=== PATIENT | female | born 1945 | race Caucasian/White ===

== ENCOUNTER 2020-03-09 21:02 | Emergency (ER) | payer MEDICARE, MEDICAID, SELFPAY ==
[2020-03-09 21:08] VITALS: BP 224/120; PULSE 77; RESP 16; TEMP 36.3; O2SAT 100; BMI 30.6
--- NOTE | 2020-03-09 21:36 | ECG_ITS ---
Test Reason : CHEST PAIN Blood Pressure : / mmHG Vent. Rate : 072 BPM Atrial Rate : 072 BPM P-R Int : 136 ms QRS Dur : 088 ms QT Int : 412 ms P-R-T Axes : 029 006 038 degrees QTc Int : 451 ms Normal sinus rhythm Minimal voltage criteria for LVH, may be normal variant Borderline ECG When compared to the previous EKG of No significant changes seen Referred By: Generic ED Physician Electronically Signed By:DIEUDONNE OSUNA MD
[2020-03-09 21:49] LABS: MANUAL DIFF FLAG NO
[2020-03-09 21:50] LABS: Basophils Percent Auto 0.5 % (0-2); Eosinophils Absolute Auto 0.1 X10*3/uL (0.0-0.4); Eosinophils Percent Auto 1.1 % (0-4); Hematocrit 38.5 % (37-47); Hemoglobin 12.3 g/dl (12.0-16.0); Imm Gran Abs Auto 0.01 X10*3/uL (0.00-0.03); Imm Gran Pct Auto 0.2 % (0.0-0.4); Lymphocytes Absolute Auto 3.4 X10*3/uL (1.2-4.9); Lymphocytes Percent Auto 52.4 % (20-40); Mean Corpuscular HGB Conc 31.9 g/dl (31.0-35.0); Mean Corpuscular Hemoglobin 24.3 pg (27.0-33.0); Mean Corpuscular Volume 76.1 fL (80-98); Mean Platelet Volume 10.4 fL (9.4-12.3); Monocytes Absolute Auto 0.5 X10*3/uL (0.1-1.2); Monocytes Percent Auto 7.5 % (2-11); Neutrophils Absolute Auto 2.5 X10*3/uL (2.0-8.3); Neutrophils Percent Auto 38.3 % (45-73); Platelet Count 267 X10*3/uL (160-400); Red Blood Count 5.06 X10*6/uL (4.20-5.50); Red Cell Distribution Width 14.6 % (11.0-16.0); White Blood Count 6.5 X10*3/uL (4.8-10.8)
--- NOTE | 2020-03-09 22:03 | ED_ITS ---
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 In addition, patient notes that she was hypertensive at home and this chest pressure was not associated with any headache, dizziness,, shortness of breath, diaphoresis, nausea. Otherwise, patient denies any recent travel or calf swelling. Related Data Previous Rx's Medication Instructions Recorded hydrochlorothiazide 25 mg PO DAILY #30 tab 03/10/20 Allergies Allergy/AdvReac Type Severity Reaction Status Date / Time No Known Allergies Allergy Verified 03/09/20 23:42 Review of Systems Review of Systems: Pertinent positives and negatives as stated in HPI 10 point review of systems is otherwise negative. PMFSH Past Medical History Source: nursing notes reviewed Medical History Breast cancer HTN (hypertension) Social History Social History Smoking Status: Never smoker Use of substances other than those prescribed or required for medical reasons: No Advance Directives: No Advance Directives Information Provided: Yes Physical Exam Vital Signs: Vital Signs: Last Vital Signs Temp 97.3 F 03/09/20 21:08 Pulse 70 03/10/20 00:00 Resp 15 03/10/20 00:00 BP 154/76 H 03/10/20 00:00 Pulse Ox 100 03/10/20 00:00 Body Mass Index 30.6 VITAL SIGNS: Reviewed. GENERAL: Well developed, well nourished, in no acute distress. HEAD: Normocephalic/atraumatic, EYES: PERRLA, EOMI intact without pain, no nystagmus/pallor/icterus noted EARS: Ext canals without abnormality, TMs non-bulging and non-erythematous NOSE: Nares patent bilateral OROPHARYNX: no oral lesions noted, posterior pharynx clear and non-erythematous without noted tonsillar enlargement/erythema/exudates NECK: Supple, no adenopathy LUNGS: Normal breath sounds. No adventitious sounds or accessory muscle use. SpO2<100> CARDIOVASCULAR: Regular rate and rhythm without noted murmurs, no JVD or lower extremity edema. ABDOMEN: Soft, non-tender, non-distended with bowel sounds. No rigidity. No guarding. No palpable masses or hernias noted MUSCULOSKELETAL: No tenderness, deformities, or effusions noted on gross inspection. EXTREMITIES: No cyanosis, clubbing or edema. SKIN: Inspection of the skin reveals no rashes, ulcerations, jaundice, pallor, or petechiae. NEUROLOGIC: Alert and oriented x 4. Strength and sensation to light touch were grossly intact x 4. Course Course Course Narrative: This is a 74-year-old female with history and clinical presentation consistent with hypertension and associated chest discomfort that h as since resolved. Will rule out cardiac ischemia and pulmonary etiologies. Patient states she does not have blood pressure medication at home and so she will be discharged with a short course of blood pressure medication and instructed to follow-up with their primary care provider. HEART SCORE: 4 review of all laboratory investigations and imaging is negative for any evidence of systemic infection, or anemia, and although troponin was mildly elevated 8.3 with a heart score of 4 and history of hypertension 2nd troponin did not meet delta 50% increase and is within age and gender appropriate levels. That being said patient was strongly encouraged to follow-up with her primary care provider for further management of her blood pressure and discussion for possible referral to Cardiology as appropriate. MDM - Chest Pain Lab Data Result diagrams: 03/09/20 21:43 03/09/20 21:30 Labs: Lab Results 03/09/20 03/09/20 03/09/20 Range/Units 21:30 21:30 21:30 WBC (4.8-10.8) X10*3/uL RBC (4.20-5.50) X10*6/uL Hgb (12.0-16.0) g/dl Hct (37-47) % MCV (80-98) fL MCH (27.0-33.0) pg MCHC (31.0-35.0) g/dl RDW (11.0-16.0) % Plt Count (160-400) X10*3/uL MPV (9.4-12.3) fL Immature Gran % (Auto) (0.0-0.4) % Neut % (Auto) (45-73) % Lymph % (Auto) (20-40) % [place] % (Auto) (2-11) % Eos % (Auto) (0-4) % Baso % (Auto) (0-2) % Lymph # (Auto) (1.2-4.9) X10*3/uL [place] # (Auto) (0.1-1.2) X10*3/uL Eos # (Auto) (0.0-0.4) X10*3/uL Baso # (Auto) (0.0-0.2) X10*3/uL Abs Immat Gran (auto) (0.00-0.03) X10*3/uL Absolute Neuts (auto) (2.0-8.3) X10*3/uL Absolute Nucleated RBC (0.0-0.012) X10*3/uL Nucleated RBC % (auto) (0.0-0.2) /100WBC Hold Blue Top SEE NOTE Sodium 139 (135-145) mmol/L Potassium 4.1 (3.3-5.1) mmol/l Chloride 108 (96-108) mmol/L Carbon Dioxide 23 (22-29) mmol/L Anion Gap 12 (12-20) BUN 20 H (9-16) mg/dL Creatinine 0.87 (0.5-1.4) mg/dL Estim Creat Clear Calc 56.2 Estimated GFR > 60 Random Glucose 96 (60-115) mg/dL Calcium 8.9 (8.4-10.2) mg/dL Troponin I High Sens 8.3 (<3.5-17.0) ng/L 03/09/20 03/10/20 Range/Units 21:43 00:50 WBC 6.5 (4.8-10.8) X10*3/uL RBC 5.06 (4.20-5.50) X10*6/uL Hgb 12.3 (12.0-16.0) g/dl Hct 38.5 (37-47) % MCV 76.1 L (80-98) fL MCH 24.3 L (27.0-33.0) pg MCHC 31.9 (31.0-35.0) g/dl RDW 14.6 (11.0-16.0) % Plt Count 267 (160-400) X10*3/uL MPV 10.4 (9.4-12.3) fL Immature Gran % (Auto) 0.2 (0.0-0.4) % Neut % (Auto) 38.3 L (45-73) % Lymph % (Auto) 52.4 H (20-40) % [place] % (Auto) 7.5 (2-11) % Eos % (Auto) 1.1 (0-4) % Baso % (Auto) 0.5 (0-2) % Lymph # (Auto) 3.4 (1.2-4.9) X10*3/uL [place] # (Auto) 0.5 (0.1-1.2) X10*3/uL Eos # (Auto) 0.1 (0.0-0.4) X10*3/uL Baso # (Auto) 0.0 (0.0-0.2) X10*3/uL Abs Immat Gran (auto) 0.01 (0.00-0.03) X10*3/uL Absolute Neuts (auto) 2.5 (2.0-8.3) X10*3/uL Absolute Nucleated RBC 0.000 (0.0-0.012) X10*3/uL Nucleated RBC % (auto) 0.0 (0.0-0.2) /100WBC Hold Blue Top Sodium (135-145) mmol/L Potassium (3.3-5.1) mmol/l Chloride (96-108) mmol/L Carbon Dioxide (22-29) mmol/L Anion Gap (12-20) BUN (9-16) mg/dL Creatinine (0.5-1.4) mg/dL Estim Creat Clear Calc Estimated GFR Random Glucose (60-115) mg/dL Calcium (8.4-10.2) mg/dL Troponin I High Sens 9.8 (<3.5-17.0) ng/L ECG Data ECG #1: Attestation: I personally reviewed and interpreted this ECG as follows: Prior ECG tracings: not available for review Interpretation: Normal sinus rhythm, HR - 72, no evidence of acute ischemia, [place]/QRS/ QTC are within normal limits. Discharge Plan Discharge Clinical Impression: Atypical chest pain Hypertension Qualifiers: Hypertension type: unspecified Qualified Code(s): I10 - Essential (primary) hypertension Patient Disposition: Home, Self-Care Instructions: Hypertension (ED) Additional Instructions: Debe llamar al consultorio de boo proveedor de atenci?n primaria para obtener lg receta para boo presi?n arterial jonah. El paciente y / o la edi reconocen que comprenden los resultados (seg?n corresponda), el diagn?stico, el plan de tratamiento, la necesidad de seguimiento y los s?ntomas que deber?an impulsar el regreso a la carolyn de emergencias. Prescriptions: New hydrochlorothiazide 25 mg tablet 25 mg PO DAILY Qty: 30 RF: 0 Interventions: ED Discharge Assessment Last Done: 03/10/20 01:07 Print Language: Kuwaiti
--- NOTE | 2020-03-09 22:09 | XR_ITS ---
EXAMINATION: XR CHEST CLINICAL INFORMATION: Chest pain. COMPARISON: None TECHNIQUE: Frontal view of the chest was obtained. FINDINGS: No significant abnormality is noted involving the heart, lungs, mediastinum, bony thorax or soft tissues. XR/XR chest 1V IMPRESSION: No acute cardiopulmonary process.
[2020-03-09 22:36] LABS: Anion Gap 12 (12-20); Blood Urea Nitrogen 20 mg/dL (9-16); Calcium 8.9 mg/dL (8.4-10.2); Carbon Dioxide 23 mmol/L (22-29); Chloride 108 mmol/L (96-108); Creatinine Clr Calc Pharmacy 56.2; Estimated Glomerular Filt Rate > 60; Glucose Random 96 mg/dL (60-115); Potassium 4.1 mmol/l (3.3-5.1); Sodium 139 mmol/L (135-145)
[2020-03-09 22:43] LABS: Troponin-I High Sensitivity 8.3 ng/L (<3.5-17.0)
[2020-03-09 22:49] VITALS: BP 154/76; PULSE 67; RESP 15; O2SAT 100
[2020-03-10] VITALS: BP 154/76; PULSE 70; RESP 15; O2SAT 100
[2020-03-10 01:24] LABS: Troponin-I High Sensitivity 9.8 ng/L (<3.5-17.0)
== END 2020-03-10 01:46 | disposition home or self-care (01) ==
PROVIDERS: Emergency Provider Student in an Organized Health Care Education/Training Program
DX: R07.89 Other chest pain (principal); I10 Essential (primary) hypertension; C50.912 Malignant neoplasm of unspecified site of left female breast
CPT/HCPCS: 36415; 71045; 80048; 84484; 85025; 93005; 99284

== ENCOUNTER 2020-05-04 12:52 | Outpatient (REF) | payer MEDICARE, MEDICAID, SELFPAY ==
--- NOTE | 2020-05-04 13:01 | MM_ITS ---
EXAMINATION: MM DIAGNOSTIC DIGITAL MAMMOGRAPHY, BILATERAL CLINICAL INFORMATION: Due for yearly. 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 COMPARISON: Mammography: 03/20/2019, 02/22/2018, 01/21/2018, 01/10/2018, 12/27/2017 TECHNIQUE: Digital mammography is performed in craniocaudal and mediolateral oblique views along with computer-aided detection (CAD). Additional magnification left CC and magnification left ML views are obtained. FINDINGS: There are scattered areas of fibroglandular density (ACR BI-RADS breast composition Category b). Breast tissue composition borders on heterogeneously dense. Parenchymal pattern is similar to prior exams. There are stable post therapy changes on the left with mild reduced breast size and minor scarring. Neither breast shows interval mass or architectural abnormality or abnormal calcifications. No significant changes. Results are provided to the patient at time of visit by the technologist. MM/MM diagnostic mammo BI IMPRESSION: No mammographic evidence of malignancy. Post therapy changes left breast. ASSESSMENT: BI-RADS 2: Benign RECOMMENDATION: Annual bilateral mammography. This patient's information was entered into a reminder system with a target due date for their next mammogram.
== END 2020-05-04 12:53 | disposition home or self-care (01) ==
LOC: HO.MAMMO 12:52
PROVIDERS: Visit Provider Surgery
DX: Z85.3 Personal history of malignant neoplasm of breast (principal)
CPT/HCPCS: 77066

== ENCOUNTER 2021-10-19 11:44 | Outpatient (REF) | payer MEDICARE, MEDICAID, SELFPAY ==
--- NOTE | ~2021-10-19 | XR_ITS ---
EXAMINATION: XR SHOULDER, RIGHT CLINICAL INFORMATION: Right shoulder pain. COMPARISON: Chest radiograph 03/09/2020. TECHNIQUE: Right shoulder is imaged in 4 views. FINDINGS: Right shoulder shows no fracture or dislocation or destructive process. The glenohumeral joint appears normal. There are mild degenerative changes acromioclavicular joint. No acromioclavicular separation. No visible rotator cuff calcifications. There are healed fractures right posterior lateral 3rd and 4th ribs. Right lung apex clear. No pleural reaction. XR/XR shoulder RT min 2V IMPRESSION: -Mild degenerative changes acromioclavicular joint. -No visible rotator cuff calcifications.
== END 2021-10-19 11:45 | disposition home or self-care (01) ==
LOC: HO.XRAY 11:44
PROVIDERS: PCP Nurse Practitioner; Visit Provider Nurse Practitioner
DX: M25.511 Pain in right shoulder (principal)
CPT/HCPCS: 73030

== ENCOUNTER → 2021-10-21 15:18 | Outpatient (BNV) | payer MEDICAID, MEDICARE, SELFPAY | PROVIDERS: PCP Nurse Practitioner; Visit Provider Internal Medicine | DX: C50.912 Malignant neoplasm of unspecified site of left female breast (principal); Z17.0 Estrogen receptor positive status [ER+]; M85.80 Other specified disorders of bone density and structure, unspecified site; Z80.3 Family history of malignant neoplasm of breast | CPT/HCPCS: 99214 ==

== ENCOUNTER 2022-01-19 10:31 | Outpatient (REF) | payer MEDICARE, MEDICAID, SELFPAY ==
--- NOTE | ~2022-01-19 | MM_ITS ---
EXAMINATION: MM SCREENING DIGITAL BREAST TOMOSYNTHESIS, BILATERAL CLINICAL INFORMATION: Screening. Asymptomatic. Status post left breast lumpectomy. COMPARISON: Mammography: 05/04/2020 and studies dating back to 08/16/2015 TECHNIQUE: Digital breast tomosynthesis is performed in both the craniocaudal and mediolateral oblique views along with computer-aided detection (CAD). Synthesized 2D images are generated from the tomosynthesis. FINDINGS: The breasts are heterogeneously dense, which may obscure small masses (ACR BI-RADS breast composition Category c). There are no new significant masses, abnormal calcifications, or other abnormalities. Status post left lumpectomy with associated postsurgical change. Grouping of calcifications about the lateral aspect of the right breast are seen to be stable dating back to study of 03/20/2019. MM/MM tomosynthesis screening BI IMPRESSION: No significant changes from prior exam. ASSESSMENT: BI-RADS 2: Benign RECOMMENDATION: Routine annual mammography screening. This patient's information was entered into a reminder system with a target due date for their next mammogram.
--- NOTE | ~2022-01-19 | MM_ITS ---
EXAMINATION: BONE DENSITOMETRY CLINICAL INDICATION: Osteopenia. COMPARISON: Previous BD dated 07/03/2018 and baseline BD dated 11/16/2016. TECHNIQUE: Using a [employer] DXA System (software version: 13.1) manufactured by [employer], dual-energy x-ray absorptiometry was performed of the lumbar spine and left hip. The images are of good technical quality. Summary results are attached. FINDINGS: AP SPINE L1-L4: Current: BMD 0.983 g/cm2, Z-score -0.4, T-score -1.6, osteopenia, 7.1% decrease from previous, 4.3% decrease from baseline (<5% change is not significant). Prior: BMD 1.058 g/cm2. Baseline: BMD 1.027 g/cm2. LEFT FEMUR, NECK: Current: BMD 0.821 g/cm2, Z-score 0.1, T-score -1.6, osteopenia. Prior: BMD 0.899 g/cm2. Baseline: BMD 0.908 g/cm2. LEFT FEMUR, TOTAL: Current: BMD 0.872 g/cm2, Z-score 0.3, T-score -1.1, osteopenia, 6.7% decrease from previous, 8.9% decrease from baseline (<5% change is not significant). Prior: BMD 0.935 g/cm2. Baseline: BMD 0.957 g/cm2. IDENTIFIED RISK FACTORS: Early menopause, family history (parent hip fracture), secondary osteoporosis. HISTORY OF FRACTURE: None listed. MEDICATIONS: Vitamin D. MM/XR DEXA axial skeleton IMPRESSION: 1. DIAGNOSIS: Osteopenia based on the lowest T-score value of -1.6 in the lumbar spine and femur neck applying World Health Organization criteria. 2. 10-YEAR FRACTURE RISK PREDICTION, FRAX: Major osteoporotic fracture (clinical spine, forearm, hip or shoulder) 11.9%. Hip fracture 6.1%. 3. Treatment Recommendations: NOF guidelines recommend consideration for treatment in postmenopausal women and men age 50 and older presenting with the following: -A hip or vertebral (clinical or morphometric) fracture. -T-score less than or equal to -2.5 at the femoral neck or spine after appropriate evaluation to exclude secondary causes. -Low bone mass at the hip or spine and a 10-year fracture probability by FRAX of greater than or equal to 3% for hip fracture or greater than or equal to 20% for major osteoporotic fracture based on the [place] adapted WHO algorithm. 4. Other Recommendations: All treatment decisions require clinical judgment and consideration of individual patient factors, including patient preferences, comorbidities, previous drug use, risk factors not captured in the FRAX model (e.g. frailty, falls, vitamin D deficiency, increased bone turnover, interval significant decline in bone density) and possible under or overestimation of fracture risk by FRAX. Additional medical evaluation for secondary cause of low bone mineral density may be appropriate. FUTURE SCAN RECOMMENDATION: People with diagnosed cases of osteoporosis or at high risk for fracture should have regular bone mineral density tests. For patients eligible for Medicare, routine testing is allowed once every 2 years. The testing frequency can be increased to one year for patients who have rapidly progressing disease, those who are receiving or discontinuing medical therapy to restore bone mass, or have additional risk factors.
== END 2022-01-19 10:32 | disposition home or self-care (01) ==
LOC: HO.MAMMO 10:31
PROVIDERS: PCP Nurse Practitioner; Visit Provider Nurse Practitioner
DX: Z12.31 Encounter for screening mammogram for malignant neoplasm of breast (principal); Z13.820 Encounter for screening for osteoporosis; Z78.0 Asymptomatic menopausal state; M85.89 Other specified disorders of bone density and structure, multiple sites
CPT/HCPCS: 77063; 77067; 77080

== ENCOUNTER 2022-03-10 | Outpatient (REF) | payer MEDICARE, MEDICAID, SELFPAY ==
--- NOTE | ~2022-03-10 | XR_ITS ---
EXAMINATION: XR STANDING KNEE BILATERAL XR KNEE, RIGHT XR KNEE, LEFT CLINICAL INFORMATION: Bilateral knee pain. COMPARISON: 01/16/2018 TECHNIQUE: AP standing view both knees. Lateral and sunrise views of each knee. FINDINGS: Symmetric severe osteoarthritis of the lateral compartments with mild genu valgus. Moderate osteoarthritis of the medial and patellofemoral compartments of each knee. No acute osseous abnormality. No significant joint effusions. No acute abnormalities. Degenerative findings have slightly progressed. XR/XR knee RT 2V IMPRESSION: Tricompartmental osteoarthritis of both knees, most severe in the lateral compartments.
--- NOTE | ~2022-03-10 | XR_ITS ---
EXAMINATION: XR STANDING KNEE BILATERAL XR KNEE, RIGHT XR KNEE, LEFT CLINICAL INFORMATION: Bilateral knee pain. COMPARISON: 01/16/2018 TECHNIQUE: AP standing view both knees. Lateral and sunrise views of each knee. FINDINGS: Symmetric severe osteoarthritis of the lateral compartments with mild genu valgus. Moderate osteoarthritis of the medial and patellofemoral compartments of each knee. No acute osseous abnormality. No significant joint effusions. No acute abnormalities. Degenerative findings have slightly progressed. XR/XR knee standing BI IMPRESSION: Tricompartmental osteoarthritis of both knees, most severe in the lateral compartments.
--- NOTE | ~2022-03-10 | XR_ITS ---
EXAMINATION: XR STANDING KNEE BILATERAL XR KNEE, RIGHT XR KNEE, LEFT CLINICAL INFORMATION: Bilateral knee pain. COMPARISON: 01/16/2018 TECHNIQUE: AP standing view both knees. Lateral and sunrise views of each knee. FINDINGS: Symmetric severe osteoarthritis of the lateral compartments with mild genu valgus. Moderate osteoarthritis of the medial and patellofemoral compartments of each knee. No acute osseous abnormality. No significant joint effusions. No acute abnormalities. Degenerative findings have slightly progressed. XR/XR knee LT 2V IMPRESSION: Tricompartmental osteoarthritis of both knees, most severe in the lateral compartments.
== END 2022-03-10 00:01 | disposition home or self-care (01) ==
LOC: HO.HOSX
PROVIDERS: Visit Provider Physician Assistant
DX: M17.0 Bilateral primary osteoarthritis of knee (principal)
CPT/HCPCS: 20610; 73560; 73565; 99202; J1040

== ENCOUNTER → 2022-05-01 11:01 | Outpatient (BNVA) | payer MEDICARE, MEDICAID, SELFPAY | PROVIDERS: PCP Nurse Practitioner; Visit Provider Orthopaedic Surgery | DX: M17.11 Unilateral primary osteoarthritis, right knee (principal); M17.12 Unilateral primary osteoarthritis, left knee | CPT/HCPCS: 99212 ==

== ENCOUNTER → 2022-07-11 13:05 | Outpatient (BNVA) | payer MEDICARE, MEDICAID, SELFPAY | PROVIDERS: PCP Nurse Practitioner; Visit Provider Orthopaedic Surgery ==

== ENCOUNTER 2022-07-25 | Outpatient (REF) | payer MEDICARE, MEDICAID, SELFPAY ==
[2022-07-25 15:26] VITALS: BP 201/93; PULSE 76; RESP 20; O2SAT 100; BMI 31.3
--- NOTE | 2022-07-25 15:30 | P.CONAN_ITS ---
HPI - Anesthesia Eval Consult details Narrative: 77yo F for Right Total Knee Replacement 08/23/22 PCP clearance pending BP BP elevated at PAT. Pt denies VILLANUEVA, vision changes. Declines ER. BP meds increased by PCP today. 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) Osteoarthritis of right knee (Acute) Osteoarthritis of left knee (Acute) Past Medical History Medical History Anxiety Breast cancer Carcinoma of left breast HTN (hypertension) Low back pain Osteopenia Restless leg syndrome Family History Family history of problems with anesthesia: No Surgical History Surgical History H/O hernia repair History of appendectomy History of lumpectomy of left breast History of tubal ligation History of Problems with Anesthesia: No Social History Social History Household Members: Family Household Members Other:: Son, DIL, Grandaughter Housing: House Are you a primary director long term care to a significant other at home: No Do you presently have visiting nurse or other home services: No Patient Tobacco Use Status: Never used Tobacco Second Hand Smoke Exposure: No Current occupational status: retired Narrative Narrative: No recent illness No CP/SOB within limits of pain Meds Allergies Allergy/AdvReac Type Severity Reaction Status Date / Time No Known Allergies Allergy Verified 07/21/22 12:21 Home Medications Medication Instructions Recorded Confirmed Last Taken Type multivitamin 1 tab PO DAILY 04/26/22 07/21/22 Unknown History amlodipine 10 mg tablet 10 mg PO 07/12/22 07/12/22 Unknown History acetaminophen 650 mg 650 mg PO Q8H PRN Pain 07/21/22 07/21/22 Unknown History tablet,extended release docusate sodium 100 mg capsule 100 mg PO DAILY PRN constipation 07/21/22 0 07/21/22 Unknown History hydrochlorothiazide 25 mg tablet 25 mg PO QAM 07/21/22 07/21/22 Unknown History lisinopril 30 mg tablet 30 mg PO QAM 07/21/22 07/21/22 Unknown History pravastatin 40 mg tablet 40 mg PO QPM 07/21/22 07/21/22 Unknown History Exam Exam Date and Time: July 25, 2022 1530 Narrative Narrative: EKG 06/3022 NSR@70 Airway TM Dist: >3cm Neck ROM: Full Denture: Upper Assessment and Plan Assessment Anesthesia Assessment: Anesthesia Plan Discussed and PAT Visit Final Anesthetic Review Family History of Problems with Anesthesia: No History of Problems with Anesthesia: No
[2022-07-25 17:49] LABS: MRSA Nasal PCR NEGATIVE (Negative); SA Nasal PCR NEGATIVE (Negative)
[2022-07-25 18:11] LABS: Hematocrit 36.1 % (37.0-47.0); Mean Corpuscular HGB Conc 33.2 g/dl (31.0-35.0); Mean Corpuscular Hemoglobin 24.9 pg (27.0-33.0); Mean Corpuscular Volume 74.9 fL (80.0-98.0); Mean Platelet Volume 11.2 fL (9.4-12.3); Platelet Count 280 X10*3/uL (160-400); Red Blood Count 4.82 X10*6/uL (4.20-5.50); Red Cell Distribution Width 14.2 % (11.0-16.0); White Blood Count 6.7 X10*3/uL (4.8-10.8)
[2022-07-25 18:31] LABS: Anion Gap 11 (12-20); Blood Urea Nitrogen 16 mg/dL (9-16); Calcium 8.9 mg/dL (8.4-10.2); Carbon Dioxide 25 mmol/L (22-29); Chloride 110 mmol/L (96-108); Estimated Glomerular Filt Rate > 60; Glucose Random 110 mg/dL (60-115); Sodium 142 mmol/L (135-145)
== END 2022-07-25 00:01 | disposition home or self-care (01) ==
LOC: HO.PAT
PROVIDERS: Nurse Practitioner; Physician Assistant; PCP Nurse Practitioner; Visit Provider Orthopaedic Surgery
DX: Z01.818 Encounter for other preprocedural examination (principal); M17.11 Unilateral primary osteoarthritis, right knee
CPT/HCPCS: 36415; 80048; 85027; 86850; 86900; 86901; 87640; 87641

== ENCOUNTER 2022-10-06 10:39 | Outpatient (REF) | payer MEDICARE, MEDICAID, SELFPAY ==
--- NOTE | ~2022-10-06 | US_ITS ---
EXAMINATION: US RETROPERITONEAL LIMITED (RENAL ONLY) CLINICAL INFORMATION: Essential hypertension. COMPARISON: CT abdomen and pelvis 03/19/2016. Ultrasound abdomen 04/27/2011. TECHNIQUE: Real-time imaging of the kidneys. Limited visualization due to bowel gas and body habitus. FINDINGS: RIGHT KIDNEY: 10.0 x 3.9 x 4.7 cm (SAG x AP x TRV). No hydronephrosis. No renal calculi. Limited visualization. 1.3 x 1.3 x 1.6 cm medial midpole cyst difficult to characterize due to limited visualization. LEFT KIDNEY: 10.1 x 5.0 x 3.7 cm (SAG x AP x TRV). No hydronephrosis. No renal calculi. Limited visualization. 2.3 x 1.7 x 2.1 cm upper pole, 1.5 x 0.9 x 1.2 cm upper pole and 1.1 x 1.2 x 1.4 cm lower pole cysts are difficult to fully characterize due to limited visualization. US/US renal BI IMPRESSION: Bilateral renal cysts are difficult to characterize due to limited visualization. CT scan recommended for further evaluation.
== END 2022-10-06 10:40 | disposition home or self-care (01) ==
LOC: HO.US 10:39
PROVIDERS: PCP Family Medicine; Visit Provider Family Medicine
DX: I10 Essential (primary) hypertension (principal)
CPT/HCPCS: 76775

== ENCOUNTER 2022-12-27 09:56 | Outpatient (REF) | payer MEDICARE, MEDICAID, SELFPAY ==
--- NOTE | ~2022-12-27 | CT_ITS ---
EXAMINATION: CT ABDOMEN WITHOUT AND WITH CONTRAST CLINICAL INFORMATION: Renal cyst. COMPARISON: 10/06/2022 abdominal ultrasound, 03/19/2016 CT TECHNIQUE: Contiguous axial thin section helical images of the abdomen were performed before and after the administration of oral contrast and 85 mL of Omnipaque 350 intravenous contrast. The data set was reformatted in the coronal and sagittal planes and reviewed on an independent workstation. This CT examination was performed using dose optimization techniques as appropriate, variously including the following: *Automated exposure control *Adjustment of mA and/or kV according to patient size (this includes techniques or standardized protocols for targeted exams where dose is matched to indication/reason for exam; i.e. extremities or head) *Use of iterative reconstruction technique DLP: 433 mGy-cm FINDINGS: TEST GRADER: Nonspecific bowel pattern. LUNG BASES: Minor atelectasis. Heart size upper limits of normal. LIVER, GALLBLADDER, AND BILIARY TREE: Homogeneous liver with no lesions or ductal dilatation. Distended gallbladder without wall thickening, pericholecystic fluid or inflammatory changes. PANCREAS: Pancreas poorly delineated from unopacified bowel loops but no definite abnormality. SPLEEN: Lateral capsular calcifications are stable from 2016. ADRENAL GLANDS: No lesions. KIDNEYS AND URETERS: Bilateral nonobstructing renal calculi are identified, largest on the right measures 3 mm, on the left, 2 mm. On the right, mild renal pelvic collecting system fullness and prominent extrarenal pelvis but improved from 2016. Small extrarenal pelvis on the left. 1.9 cm medial mid pole water density, nonenhancing round hypodensity. Multiple left renal hypodensities, some too small to characterize, largest of the lesions are nonenhancing and of water density Hounsfield units, 1.0 cm and 1.4 cm in the upper pole and 1.2 cm in the lower pole. Bilateral 4 mm renal hyperdensities in the right upper pole and left lower pole likely proteinaceous or hemorrhagic cysts. GASTROINTESTINAL: Small hiatal hernia. Underdistended stomach. No bowel obstruction LYMPH NODES: No pathologic lymphadenopathy. VASCULAR: Atherosclerotic calcifications nonaneurysmal aorta. Normal caliber inferior vena cava. BONES: Stable appearance of the bony structures including facet hypertrophic hypertrophy and multiple hemangiomas. CT/CT abdomen wo/w IV con IMPRESSION: Bilateral renal cysts. Bilateral nonobstructing renal calculi. Fleischner guidelines were followed.
[2022-12-27] MEDS: iohexoL 350 MG/ML 100 ML INFUS..BTL IV (11:07)
[2022-12-28 15:40] LABS: Creatinine POC 0.6 mg/dL (0.5-1.4); GFR POC 60
== END 2022-12-27 09:57 | disposition home or self-care (01) ==
LOC: HO.CT 09:56
PROVIDERS: Absent Provider Family Medicine; PCP Family Medicine; Visit Provider Internal Medicine Hypertension Specialist
DX: N28.1 Cyst of kidney, acquired (principal)
CPT/HCPCS: 74170; 82565; Q9967

== ENCOUNTER 2023-01-17 10:45 | Outpatient (REF) | payer MEDICARE, MEDICAID, SELFPAY ==
[2023-01-17 12:01] LABS: Anion Gap 15 (12-20); Blood Urea Nitrogen 12 mg/dL (9-16); Calcium 10.1 mg/dL (8.4-10.2); Carbon Dioxide 25 mmol/L (22-29); Chloride 108 mmol/L (96-108); Estimated Glomerular Filt Rate > 60; Potassium 3.9 mmol/L (3.3-5.1); Sodium 144 mmol/L (135-145)
== END 2023-01-17 10:46 | disposition home or self-care (01) ==
LOC: HO.HHCL 10:45
PROVIDERS: Visit Provider Internal Medicine Hypertension Specialist
DX: I10 Essential (primary) hypertension (principal)
CPT/HCPCS: 36415; 80051; 82310; 82565; 84520

== ENCOUNTER 2023-01-25 08:36 | Outpatient (REF) | payer MEDICARE, MEDICAID, SELFPAY ==
--- NOTE | ~2023-01-25 | MM_ITS ---
EXAMINATION: MM SCREENING DIGITAL BREAST TOMOSYNTHESIS, BILATERAL CLINICAL INFORMATION: Screening. Asymptomatic. Status post left breast lumpectomy 02/22/2018 for papillary ductal cancer with adjacent invasive ductal carcinoma. COMPARISON: Mammography: 01/19/2022, 05/04/2020 and studies dating back to 08/16/2015 TECHNIQUE: Digital breast tomosynthesis is performed in both the craniocaudal and mediolateral oblique views along with computer-aided detection (CAD). Synthesized 2D images are generated from the tomosynthesis. FINDINGS: The breasts are heterogeneously dense, which may obscure small masses (ACR BI-RADS breast composition Category c). Stable post treatment related changes superior left breast. Vascular calcifications present in both breasts. There are a few scattered benign type calcifications in both breasts with rounded appearance, unchanged and benign. Similar loosely grouped calcifications lateral right breast, stable and benign.No suspicious masses, suspicious grouped calcifications, or developing regions of architectural distortion in either breast. No axillary abnormalities. MM/MM tomosynthesis screening BI IMPRESSION: No mammographic evidence of malignancy. Stable benign findings including treatment related changes left breast. ASSESSMENT: BI-RADS BI-RADS 2 - Benign Findings RECOMMENDATION: Routine annual mammography screening. 1 year F/U This examination should not preclude the clinical evaluation of a suspicious palpable abnormality. This patient's information was entered into a reminder system with a target due date for their next mammogram.
== END 2023-01-25 08:37 | disposition home or self-care (01) ==
LOC: HO.MAMMO 08:36
PROVIDERS: PCP Family Medicine; Visit Provider Nurse Practitioner
DX: Z12.31 Encounter for screening mammogram for malignant neoplasm of breast (principal)
CPT/HCPCS: 77063; 77067

== ENCOUNTER → 2023-01-25 09:45 | Outpatient (BNV) | payer MEDICARE, MEDICAID, SELFPAY | PROVIDERS: PCP Family Medicine; Visit Provider Radiology Diagnostic Radiology | DX: Z12.31 Encounter for screening mammogram for malignant neoplasm of breast (principal) | CPT/HCPCS: 77063; 77067 ==

== ENCOUNTER 2023-07-19 14:29 | Outpatient (AMB) | payer MEDICARE, MEDICAID, SELFPAY ==
[2023-07-19 14:30] VITALS: BP 180/81; PULSE 67; O2SAT 98; BMI 30.8
--- NOTE | 2023-07-19 14:30 | HO.NEPHOV ---
HPI HPI Comments History of Present Illness Details Nataly is a 78-year-old woman with a history of nephrolithiasis and hypertension. She was previously seen in my previous practice and she has made an appointment to establish continuity of care. She has a history of breast cancer and is being followed by Dr. Simms. History of hypertension. History of nephrolithiasis as well. She is complaining of edema. [facility] Medical History (Updated 07/19/23 @ 14:50 by Ulysses Olson MD) Breast cancer HTN (hypertension) Osteopenia Low back pain Restless leg syndrome Anxiety Carcinoma of left breast Surgical History History of lumpectomy of left breast History of tubal ligation History of appendectomy H/O hernia repair Social History Household Members: Family Household Members Other:: Son, DIL, [facility] Housing: House Are you a primary complex care nurse to a significant other at home: No Do you presently have visiting nurse or other home services: No Patient Tobacco Use Status: Never used Tobacco Second Hand Smoke Exposure: No Current occupational status: retired Vital Signs 07/19/23 14:30 Height 5 ft 3 in Weight 174 lb BMI 30.8 BP 180/81 H Blood Pressure Location Rt brachial Position Sitting Pulse 67 Pulse Source Pulse Oximeter Pulse Oximetry (%) 98 Oxygen Delivery Method Room Air Physical Exam Vital Signs: BMI result Body Mass Index 30.8 Const General: comfortable Nutritional Appearance: well nourished Orientation/consciousness: patient oriented x3 HEENT Head: No normal to inspection Mouth: moist mucous membranes Neck Neck: Yes supple and Yes no JVD Resp Auscultation: clear to auscultation bilaterally, no rales and rub present Cardio Jugular venous distension: no JVD Palpation: no palpable S3 and no palpable S4 Heart sounds: no rubs GI Palpation (GI): Soft to palpation and nontender Percussion: No Fluid wave present General: Yes no CVA tenderness Back/Spine/Pelvis Back: no CVA tenderness Skin General skin exam: no rashes or lesions noted Neuro General: patient oriented x3 Extrem General: Yes no pedal edema and No clubbing Assessment & Plan Assessment & Plan (1) HTN (hypertension): Code(s): I10 - Essential (primary) hypertension Plan: Blood pressure is suboptimal today. I am very concerned with complaints. The medication list she is carrying does not match with my medication list. I have asked her to bring all her medications during the next visit in the next few days. In the meantime she should stay on low-sodium diet and keep taking the current medication that she has at home. (2) Nephrolithiasis: Code(s): N20.0 - Calculus of kidney Plan: Prior CT scan showed bilateral nephrolithiasis which was nonobstructing. Currently she is asymptomatic She should stay on low-sodium diet Increase p.o. fluid intake to maintain a urine output of 2 L. I will obtain a 24 hour urine collection for urine studies. (3) Edema: Code(s): R60.9 - Edema, unspecified Plan: Leg edema seems multifactorial. Amlodipine could be a contributing factor. Overall she appears euvolemic and lungs are clear. I will check urine for protein creatinine ratio Encouraged leg elevation If edema persists we can decrease amlodipine by 50% to see if any improvement. Orders: Orders Creatinine Urine Today I10 - Essential (primary) hypertension, N05.9 - Unspecified nephritic syndrome with unspecified morphologic changes UA and rflx microscopic Today I10 - Essential (primary) hypertension Complete Blood Count Auto Diff Today I10 - Essential (primary) hypertension, N18.30 - Chronic kidney disease, stage 3 unspecified Comprehensive Met. Panel Today I10 - Essential (primary) hypertension, N18.9 - Chronic kidney disease, unspecified Total Protein Urine Random Today I10 - Essential (primary) hypertension Coding Level of Care Code Est Pt Level 4 (10635) Diagnoses HTN (hypertension) I10 Nephrolithiasis N20.0 Edema R60.9 Results Reviewed Nephrology Results: Hgb 11.5 g/dl (12.0-16.0) L 05/01/23 WBC 6.0 X10*3/uL (4.8-10.8) 05/01/23 Plt Count 341 X10*3/uL (160-400) 05/01/23 Sodium 142 mmol/L (135-145) 05/01/23 Potassium 4.4 mmol/L (3.3-5.1) 05/01/23 Chloride 107 mmol/L (96-108) 05/01/23 Carbon Dioxide 25 mmol/L (22-29) 05/01/23 BUN 26 mg/dL (9-16) H 05/01/23 Creatinine 0.96 mg/dL (0.5-1.4) 05/01/23 Calcium 9.6 mg/dL (8.4-10.2) 05/01/23 Renal US 10/06/22
== END 2023-07-19 14:53 | disposition home or self-care (01) ==
PROVIDERS: PCP Family Medicine; Visit Provider Internal Medicine Hypertension Specialist
DX: I10 Essential (primary) hypertension (principal); N20.0 Calculus of kidney; R60.9 Edema, unspecified
CPT/HCPCS: 99214

== ENCOUNTER → 2023-07-19 14:29 | Outpatient (BNVA) | payer MEDICARE, MEDICAID, SELFPAY | PROVIDERS: PCP Family Medicine; Visit Provider Internal Medicine Hypertension Specialist | DX: I12.9 Hypertensive chronic kidney disease with stage 1 through stage 4 chronic kidney disease, or unspecified chronic kidney disease (principal); N18.30 Chronic kidney disease, stage 3 unspecified; N20.0 Calculus of kidney; R60.9 Edema, unspecified | CPT/HCPCS: 99212 ==

== ENCOUNTER 2023-07-24 12:11 | Outpatient (REF) | payer MEDICARE, MEDICAID, SELFPAY ==
[2023-07-24 13:40] LABS: MANUAL DIFF FLAG NO
[2023-07-24 14:02] LABS: Basophils Absolute Auto 0.1 X10*3/uL (0.0-0.2); Basophils Percent Auto 0.8 % (0-2); Eosinophils Percent Auto 0.5 % (0-4); Hematocrit 38.3 % (37.0-47.0); Hemoglobin 12.3 g/dl (12.0-16.0); Imm Gran Abs Auto 0.01 X10*3/uL (0.00-0.03); Imm Gran Pct Auto 0.2 % (0.0-0.4); Lymphocytes Absolute Auto 2.9 X10*3/uL (1.2-4.9); Lymphocytes Percent Auto 45.2 % (20-40); Mean Corpuscular HGB Conc 32.1 g/dl (31.0-35.0); Mean Corpuscular Hemoglobin 23.8 pg (27.0-33.0); Mean Corpuscular Volume 74.1 fL (80.0-98.0); Mean Platelet Volume 11.7 fL (9.4-12.3); Monocytes Absolute Auto 0.5 X10*3/uL (0.1-1.2); Monocytes Percent Auto 7.6 % (2-11); Neutrophils Absolute Auto 2.9 x10*3/uL (2.0-8.3); Neutrophils Percent Auto 45.7 % (45-73); Platelet Count 268 X10*3/uL (160-400); Red Blood Count 5.17 X10*6/uL (4.20-5.50); Red Cell Distribution Width 14.3 % (11.0-16.0); White Blood Count 6.3 X10*3/uL (4.8-10.8)
[2023-07-24 15:23] LABS: Alanine Aminotransferase 13 U/L (0-31); Alkaline Phosphatase 102 U/L (39-117); Anion Gap 11 (12-20); Aspartate Amino Transferase 18 U/L (5-31); Bilirubin Total 0.5 mg/dL (0.0-1.0); Blood Urea Nitrogen 15 mg/dL (9-16); Calcium 9.5 mg/dL (8.4-10.2); Carbon Dioxide 27 mmol/L (22-29); Chloride 106 mmol/L (96-108); Estimated Glomerular Filt Rate 60; Glucose Random 90 mg/dL (60-115); Potassium 3.9 mmol/L (3.3-5.1); Sodium 140 mmol/L (135-145); Total Protein 7.4 g/dL (6.5-8.0)
== END 2023-07-24 12:12 | disposition home or self-care (01) ==
LOC: HO.HHCL 12:11
PROVIDERS: Visit Provider Internal Medicine Hypertension Specialist
DX: I12.9 Hypertensive chronic kidney disease with stage 1 through stage 4 chronic kidney disease, or unspecified chronic kidney disease (principal); N18.30 Chronic kidney disease, stage 3 unspecified
CPT/HCPCS: 36415; 80053; 85025

== ENCOUNTER 2023-08-06 11:00 | Outpatient (REF) | payer MEDICARE, MEDICAID, SELFPAY ==
--- NOTE | ~2023-08-06 | XR_ITS ---
EXAMINATION: XR KNEE, LEFT CLINICAL INFORMATION: Left knee pain COMPARISON: 03/10/2022 TECHNIQUE: Four views of the left knee. FINDINGS: There is narrowing of left knee joint more prominent in the lateral compartment with subchondral sclerosis in the lateral tibial plateau and marginal spurring. There is patellofemoral compartment marginal spurring but no joint effusion there is mild valgus deformity of the knee. XR/XR knee LT 4V IMPRESSION: Advanced changes of osteoarthritis of left knee joint more prominent in the lateral compartment
[2023-08-06 12:48] LABS: Creatinine Urine 32.41 mg/dL; Microalbum/Creatinine Ratio Ur 163.5 ug/mg cr (<30)
== END 2023-08-06 11:01 | disposition home or self-care (01) ==
LOC: HO.HHCL 11:00
PROVIDERS: Visit Provider Family Medicine
DX: Z00.00 Encounter for general adult medical examination without abnormal findings (principal); I10 Essential (primary) hypertension; E78.49 Other hyperlipidemia; D05.12 Intraductal carcinoma in situ of left breast; R79.89 Other specified abnormal findings of blood chemistry; M25.562 Pain in left knee; G89.29 Other chronic pain
CPT/HCPCS: 73564; 82043; 82570

== ENCOUNTER 2023-08-09 13:52 | Outpatient (AMB) | payer MEDICARE, MEDICAID, SELFPAY ==
--- NOTE | 2023-08-09 13:54 | HO.NEPHOV ---
Vital Signs 08/09/23 13:55 Height 5 ft 3 in Weight 173 lb BMI 30.6 BP 134/76 Blood Pressure Location Lt brachial Position Sitting Pulse 78 Pulse Source Pulse Oximeter Pulse Oximetry (%) 96 Oxygen Delivery Method Room Air Intake Visit Reasons: R/S 07/26/23/ Confirmed Legal Financial Specialist Required: Yes Legal Financial Specialist Name: edith [id number] Accompanied by: Self / Same As Patient Allergies No Known Allergies Allergy (Verified 08/09/23 13:57) HPI Comments Details: Nataly is a 78-year-old woman with a history of nephrolithiasis and hypertension. She was previously seen in my previous practice and she has made an appointment to establish continuity of care. She has a history of breast cancer and is being followed by Dr. Simms. History of hypertension. History of nephrolithiasis as well. She is complaining of edema. [facility] Medical History (Updated 07/19/23 @ 14:50 by Ulysses Olson MD) Breast cancer HTN (hypertension) Osteopenia Low back pain Restless leg syndrome Anxiety Carcinoma of left breast Surgical History History of lumpectomy of left breast History of tubal ligation History of appendectomy H/O hernia repair Social History Household Members: Family Household Members Other:: Son, DIL, [facility] Housing: House Are you a primary critical care technician to a significant other at home: No Do you presently have visiting nurse or other home services: No Patient Tobacco Use Status: Never used Tobacco Second Hand Smoke Exposure: No Current occupational status: retired Physical Exam Vital Signs: Last Vital Signs Pulse 78 08/09/23 13:55 BP 134/76 08/09/23 13:55 Pulse Ox 96 08/09/23 13:55 Oxygen Delivery Method Room Air 08/09/23 13:55 BMI result Body Mass Index 30.6 Const General: comfortable Nutritional Appearance: well nourished Orientation/consciousness: patient oriented x3 HEENT Head: No normal to inspection Mouth: moist mucous membranes Neck Neck: Yes supple and Yes no JVD Resp Auscultation: clear to auscultation bilaterally, no rales and rub present Cardio Jugular venous distension: no JVD Palpation: no palpable S3 and no palpable S4 Heart sounds: no rubs GI Palpation (GI): Soft to palpation and nontender Percussion: No Fluid wave present General: Yes no CVA tenderness Back/Spine/Pelvis Back: no CVA tenderness Skin General skin exam: no rashes or lesions noted Neuro General: patient oriented x3 Extrem General: Yes no pedal edema and No clubbing Results Reviewed Nephrology Results: Hgb 12.3 g/dl (12.0-16.0) 07/24/23 WBC 6.3 X10*3/uL (4.8-10.8) 07/24/23 Plt Count 268 X10*3/uL (160-400) 07/24/23 Sodium 140 mmol/L (135-145) 07/24/23 Potassium 3.9 mmol/L (3.3-5.1) 07/24/23 Chloride 106 mmol/L (96-108) 07/24/23 Carbon Dioxide 27 mmol/L (22-29) 07/24/23 BUN 15 mg/dL (9-16) 07/24/23 Creatinine 0.91 mg/dL (0.5-1.4) 07/24/23 Calcium 9.5 mg/dL (8.4-10.2) 07/24/23 Urine Creatinine 32.41 mg/dL 08/06/23 Renal US 10/06/22 Assessment & Plan Assessment & Plan (1) HTN (hypertension): Code(s): I10 - Essential (primary) hypertension Category: Medical Plan: Blood pressure is well controlled. In the meantime she should stay on low-sodium diet and keep taking the current medication that she has at home. (2) Nephrolithiasis: Code(s): N20.0 - Calculus of kidney Category: Medical Plan: Prior CT scan showed bilateral nephrolithiasis which was nonobstructing. Currently she is asymptomatic She should stay on low-sodium diet Increase p.o. fluid intake to maintain a urine output of 2 L. (3) Edema: Code(s): R60.9 - Edema, unspecified Category: Medical Plan: Leg edema seems multifactorial. Amlodipine could be a contributing factor. Overall she appears euvolemic and lungs are clear. urine for microalbumin creatinine ratio is only 163 Encouraged leg elevation If edema is bothersome, we can decrease amlodipine by 50% to see if any improvement. I Would prefer to keep the same dose since BP is well controlled Orders: Orders Total Protein Urine Random 3 Months UA and rflx microscopic 3 Months Comprehensive Met. Panel 3 Months N18.9 - Chronic kidney disease, unspecified Complete Blood Count Auto Diff 3 Months N18.30 - Chronic kidney disease, stage 3 unspecified Creatinine Urine 3 Months N05.9 - Unspecified nephritic syndrome with unspecified morphologic changes Coding Level of Care Code Est Pt Level 4 (97310) Diagnoses HTN (hypertension) I10 Nephrolithiasis N20.0 Edema R60.9
[2023-08-09 13:55] VITALS: BP 134/76; PULSE 78; O2SAT 96; BMI 30.6
== END 2023-08-09 14:17 | disposition home or self-care (01) ==
PROVIDERS: PCP Family Medicine; Visit Provider Internal Medicine Hypertension Specialist
DX: I10 Essential (primary) hypertension (principal); N20.0 Calculus of kidney; R60.9 Edema, unspecified
CPT/HCPCS: 99214

== ENCOUNTER → 2023-08-09 13:52 | Outpatient (BNVA) | payer MEDICARE, SELFPAY | PROVIDERS: PCP Family Medicine; Visit Provider Internal Medicine Hypertension Specialist | DX: I10 Essential (primary) hypertension (principal); N20.0 Calculus of kidney; R60.9 Edema, unspecified | CPT/HCPCS: 99212 ==

== ENCOUNTER 2023-12-03 11:45 | Outpatient (REF) | payer OTHER, SELFPAY ==
[2023-12-03 13:08] LABS: MANUAL DIFF FLAG NO
[2023-12-03 13:18] LABS: Basophils Percent Auto 0.4 % (0-2); Eosinophils Absolute Auto 0.1 X10*3/uL (0.0-0.4); Eosinophils Percent Auto 0.7 % (0-4); Hematocrit 38.8 % (37.0-47.0); Hemoglobin 12.4 g/dl (12.0-16.0); Imm Gran Abs Auto 0.02 X10*3/uL (0.00-0.03); Imm Gran Pct Auto 0.3 % (0.0-0.4); Lymphocytes Absolute Auto 2.8 X10*3/uL (1.2-4.9); Lymphocytes Percent Auto 37.8 % (20-40); Mean Corpuscular Hemoglobin 23.4 pg (27.0-33.0); Mean Corpuscular Volume 73.1 fL (80.0-98.0); Mean Platelet Volume 10.9 fL (9.4-12.3); Monocytes Absolute Auto 0.5 X10*3/uL (0.1-1.2); Monocytes Percent Auto 6.4 % (2-11); Neutrophils Absolute Auto 4.1 x10*3/uL (2.0-8.3); Neutrophils Percent Auto 54.4 % (45-73); Platelet Count 287 X10*3/uL (160-400); Red Blood Count 5.31 X10*6/uL (4.20-5.50); Red Cell Distribution Width 15.2 % (11.0-16.0); White Blood Count 7.5 X10*3/uL (4.8-10.8)
[2023-12-03 13:30] LABS: Estimated Average Glucose 117 mg/dL; Hemoglobin A1c % 5.7 % (<6.0)
[2023-12-03 13:52] LABS: Alanine Aminotransferase 20 U/L (0-31); Albumin Level 4.2 g/dL (3.5-5.0); Alkaline Phosphatase 100 U/L (39-117); Anion Gap 13 (12-20); Aspartate Amino Transferase 25 U/L (5-31); Bilirubin Direct 0.1 mg/dL (0.0-0.5); Bilirubin Total 0.4 mg/dL (0.0-1.0); Blood Urea Nitrogen 19 mg/dL (9-16); Calcium 9.9 mg/dL (8.4-10.2); Carbon Dioxide 24 mmol/L (22-29); Chloride 107 mmol/L (96-108); Cholesterol 196 mg/dL (<200); Estimated Glomerular Filt Rate > 60; Glucose Random 96 mg/dL (60-115); HDL Cholesterol 47 mg/dL (>40); LDL Cholesterol Calculated 111 mg/dL (<100); Potassium 4.2 mmol/L (3.3-5.1); Sodium 140 mmol/L (135-145); Total Protein 7.9 g/dL (6.5-8.0); Triglycerides 191 mg/dL (<150)
[2023-12-03 14:11] LABS: Free T4 (Free Thyroxine) 1.16 ng/dL (0.71-1.85); Thyroid Stimulating Hormone < 0.01 uIU/mL (0.32-4.0); Vitamin D 25-OH Total 52.1 ng/mL (>30)
== END 2023-12-03 11:46 | disposition home or self-care (01) ==
LOC: HO.HHCL 11:45
PROVIDERS: Referring Provider Internal Medicine Hypertension Specialist; Visit Provider Family Medicine
DX: Z00.00 Encounter for general adult medical examination without abnormal findings (principal); I10 Essential (primary) hypertension; E78.49 Other hyperlipidemia; D05.12 Intraductal carcinoma in situ of left breast; M25.562 Pain in left knee; G89.29 Other chronic pain; R79.89 Other specified abnormal findings of blood chemistry
CPT/HCPCS: 36415; 80053; 80061; 80076; 82248; 82306; 83036; 84439; 84443; 85025; 85027

== ENCOUNTER 2023-12-04 11:25 | Outpatient (AMB) | payer OTHER, SELFPAY ==
[2023-12-04 11:29] VITALS: BP 162/80; PULSE 73; O2SAT 98; BMI 29.6
--- NOTE | 2023-12-04 11:29 | HO.NEPHOV ---
Vital Signs 12/04/23 11:29 Height 5 ft 3 in Weight 167 lb BMI 29.6 BP 162/80 H Blood Pressure Location Lt brachial Position Sitting Pulse 73 Pulse Source Pulse Oximeter Pulse Oximetry (%) 98 Oxygen Delivery Method Room Air Intake Visit Reasons: Edema/ Missed 11/07 appt/Conf Photography Coordinator Required: Yes Photography Coordinator Name: [id number] [place] Accompanied by: Self / Same As Patient Allergies No Known Allergies Allergy (Verified 12/04/23 11:30) HPI Comments Details: Nataly is a 78-year-old woman with a history of nephrolithiasis and hypertension. She was previously seen in my previous practice and she has made an appointment to establish continuity of care. She has a history of breast cancer and is being followed by Dr. Simms. History of hypertension. History of nephrolithiasis as well. She is complaining of edema. 12/04/2023. Overall doing well no new issues today. [facility] Medical History (Updated 09/07/23 @ 13:43 by Stephanie Simms MD) Breast cancer HTN (hypertension) Osteopenia Low back pain Restless leg syndrome Anxiety Carcinoma of left breast Surgical History History of lumpectomy of left breast History of tubal ligation History of appendectomy H/O hernia repair Social History Household Members: Family Household Members Other:: Son, DIL, [facility] Housing: House Are you a primary daycare teacher to a significant other at home: No Do you presently have visiting nurse or other home services: No Patient Tobacco Use Status: Never used Tobacco Second Hand Smoke Exposure: No Current occupational status: retired Physical Exam Vital Signs: Last Vital Signs Pulse 73 12/04/23 11:29 BP 162/80 H 12/04/23 11:29 Pulse Ox 98 12/04/23 11:29 Oxygen Delivery Method Room Air 12/04/23 11:29 BMI result Body Mass Index 29.6 Const General: comfortable Nutritional Appearance: well nourished Orientation/consciousness: patient oriented x3 HEENT Head: No normal to inspection Mouth: moist mucous membranes Eyes General: appearance normal, both eyes and all related structures Visual Kumari: normal visual kumari by confrontation Neck Neck: Yes supple and Yes no JVD Resp Effort & Inspection: normal respiratory effort and respiratory effort not decreased Auscultation: clear to auscultation bilaterally, no rales and rub present Cardio Jugular venous distension: no JVD Palpation: no palpable S3 and no palpable S4 Heart sounds: no rubs GI Inspection: Yes normal to inspection Palpation (GI): Soft to palpation and nontender Percussion: No Fluid wave present Auscultation: normal bowel sounds General: Yes no CVA tenderness Back/Spine/Pelvis Back: no CVA tenderness Skin General skin exam: no rashes or lesions noted Neuro General: patient oriented x3 Extrem General: Yes no pedal edema and No clubbing Results Reviewed Nephrology Results: Hgb 12.4 g/dl (12.0-16.0) 12/03/23 WBC 7.5 X10*3/uL (4.8-10.8) 12/03/23 Plt Count 287 X10*3/uL (160-400) 12/03/23 Sodium 140 mmol/L (135-145) 12/03/23 Potassium 4.2 mmol/L (3.3-5.1) 12/03/23 Chloride 107 mmol/L (96-108) 12/03/23 Carbon Dioxide 24 mmol/L (22-29) 12/03/23 BUN 19 mg/dL (9-16) H 12/03/23 Creatinine 0.86 mg/dL (0.5-1.4) 12/03/23 Calcium 9.9 mg/dL (8.4-10.2) 12/03/23 Urine Creatinine 32.41 mg/dL 08/06/23 Assessment & Plan Assessment & Plan (1) HTN (hypertension): Code(s): I10 - Essential (primary) hypertension Category: Medical Plan: Blood pressure is suboptimal In the meantime she should stay on low-sodium diet and keep taking the current medication that she has at home. We will obtain 24 hour ABPM and prior to making any further adjustments. (2) Nephrolithiasis: Code(s): N20.0 - Calculus of kidney Category: Medical Plan: Prior CT scan showed bilateral nephrolithiasis which was nonobstructing. Currently she is asymptomatic She should stay on low-sodium diet Increase p.o. fluid intake to maintain a urine output of 2 L. (3) Edema: Code(s): R60.9 - Edema, unspecified Category: Medical Plan: Leg edema seems multifactorial. Amlodipine could be a contributing factor. Overall she appears euvolemic and lungs are clear. urine for microalbumin creatinine ratio is only 163 Encouraged leg elevation If edema is bothersome, we can decrease amlodipine by 50% to see if any improvement. I Would prefer to keep the same dose since BP is well controlled Orders: Orders AMB 24 HR B/P Monitor PLACEMENT Today I10 - Essential (primary) hypertension Coding Level of Care Code Est Pt Level 4 (13721) Diagnoses HTN (hypertension) I10 Nephrolithiasis N20.0 Edema R60.9
== END 2023-12-04 11:46 | disposition home or self-care (01) ==
PROVIDERS: PCP Family Medicine; Visit Provider Internal Medicine Hypertension Specialist
DX: I10 Essential (primary) hypertension (principal); N20.0 Calculus of kidney; R60.9 Edema, unspecified
CPT/HCPCS: 99214

== ENCOUNTER → 2023-12-04 11:25 | Outpatient (BNVA) | payer OTHER, SELFPAY | PROVIDERS: PCP Family Medicine; Visit Provider Internal Medicine Hypertension Specialist | DX: I10 Essential (primary) hypertension (principal); N20.0 Calculus of kidney; R60.9 Edema, unspecified | CPT/HCPCS: 99212 ==

== ENCOUNTER 2023-12-14 14:05 | Outpatient (REF) | payer OTHER, SELFPAY ==
--- NOTE | ~2023-12-14 | XR_ITS ---
EXAMINATION: XR lumbar spine 2-3V CLINICAL INFORMATION: L buttock pain radiating down L leg COMPARISON: None TECHNIQUE: 3 views of the lumbar spine FINDINGS: 5 nonrib-bearing lumbar-type vertebral bodies. Vertebral body heights are maintained. Alignment is maintained. Minimal degenerative change and small anterior disc osteophyte complexes. Disc space heights are maintained. Paravertebral soft tissues are unremarkable. XR/XR lumbar spine 2-3V IMPRESSION: Mild spondylosis of the lumbar spine, as above detailed. Electronically signed by: Antonieta Blankenship MD 01/01/2024 04:33 PM EDT
--- NOTE | ~2023-12-14 | XR_ITS ---
EXAMINATION: XR HIP, LEFT CLINICAL INFORMATION: Left buttock pain radiating down the left leg. Piriformis syndrome. COMPARISON: None available. TECHNIQUE: AP and frog-leg lateral views of the left hip. FINDINGS: Mild osteoarthritis of the left hip joint with small acetabular osteophytes. Joint spaces normal. No fracture or malalignment. Bones are osteopenic. Soft tissues are unremarkable. [id number] osteoarthritis of the pubic symphysis. XR/XR hip LT min 2V IMPRESSION: Mild osteoarthritis in the left hip. No acute osseous findings. Electronically signed by: Daniel Boss MD 12/20/2023 02:34 PM EDT Workstation: [id number]
== END 2023-12-14 14:06 | disposition home or self-care (01) ==
LOC: HO.HHCX 14:05
PROVIDERS: Visit Provider Family Medicine
DX: G57.02 Lesion of sciatic nerve, left lower limb (principal)
CPT/HCPCS: 72100; 73502

== ENCOUNTER → 2024-01-17 11:26 | Outpatient (BNVA) | payer OTHER, SELFPAY | PROVIDERS: PCP Family Medicine; Visit Provider Internal Medicine Hypertension Specialist ==

== ENCOUNTER 2024-11-16 10:19 | Emergency (ER) | payer OTHER, SELFPAY ==
--- NOTE | ~2024-11-16 | CT_ITS ---
CLINICAL HISTORY: left CVA tenderness, back pain CT abdomen and pelvis without contrast Comparison: CT/REG/SR - CT ABDOMEN WITHOUT THEN WITH IV CONTRAST - 12/27/22 11:00 EDT Findings: No consolidation or effusion. The unenhanced liver, spleen, gallbladder, adrenal glands and pancreas are unremarkable. There are nonobstructing calculi within each kidney, the largest on the left measuring 2 mm and on the right measuring 3 mm. No ureteral calculus identified. Nonspecific gas within the bladder. No bowel obstruction or free air. Moderate fecal retention. No free fluid, abscess or adenopathy. Moderately severe atherosclerotic disease. No acute osseous finding. Degenerative changes seen within the spine. Patchy demineralization also present. Impression: Nonobstructing bilateral renal calculi. Gas within the bladder, nonspecific. Correlation for recent catheterization or urinary tract infection. This document has been electronically signed by: Markus Ryan MD on 11/16/2024 13:00:59
[2024-11-16 10:21] VITALS: BP 214/102; PULSE 88; RESP 18; TEMP 36.6; O2SAT 98; BMI 27.6
[2024-11-16 10:41] VITALS: BP 198/92; PULSE 84; RESP 18; O2SAT 95
--- OUTSIDE RECORDS SUMMARY | 2024-11-16 10:46 | XMS_ITS | Clinical Summary ---
Author Organization [facility] Address [address] [place] [address] Phone Care Team Providers Care Cycle Liaison Name Role Phone Ana Maria Mcclellan DO Primary Care Provider Unava ilable Allergies No known active allergies Medications pravastatin (PRAVACHOL) 40 MG tablet Take 40 mg by mouth 04/21/2022 Active Multiple Vitamin (Multivitamin) tablet Take 1 tablet by mouth 1 (one) time each day with food 02/06/2022 Active metoprolol succinate XL (TOPROL XL) 50 MG 24 hr tablet Take 50 mg by mouth in the morning. 09/21/2022 Active lisinopril 5 MG tablet Take 40 mg by mouth in the morning. Active amLODIPine (NORVASC) 10 MG tablet Take 10 mg by mouth in the morning. 09/21/2022 Active acetaminophen (TYLENOL 8 HOUR) 650 MG 8 hr tablet Take 650 mg by mouth every 6 (six) hours if needed 09/21/2022 Active Calcium Carbonate-Vitam in D 500-3.125 MG-MCG tablet Take 1 tablet by mouth in the morning and 1 tablet in the evening. 04/21/2022 Active letrozole (FEMARA) 2.5 MG chemo tablet Take 2.5 mg by mouth 1 (one) time each day Take with or without food. Active spironolactone- hydroCHLOROthia zide (Aldactazide) 25-25 MG per tablet Take 1 tablet by mouth 1 (one) time each day 30 tablet 2 01/04/2023 Active Active Problems Problem Noted Date Diagnosed Date Intraductal carcinoma in situ of left breast Obesity 04/04/2023 Osteopenia 04/04/2023 Hyperlipidemia 04/04/2023 Osteoarthritis of knee 04/04/2023 H/O: depression 04/04/2023 Chronic constipation 03/29/2023 Essential hypertension 11/03/2016 Overview (11/15/2022): Last Assessment & Plan: See preop plan Resolved Problems Problem Noted Date Diagnosed Date Resolved Date H/O: depression 06/19/2022 11/15/2022 11/16/2022 Pain of knee region 04/11/2022 11/15/2022 11/17/19 23 Osteoarthritis of knee 04/11/2022 11/15/202211/16 Hyperlipidemia 04/11/2022 11/15/2022 11/16/2022 Intraductal carcinoma in situ of left breast 9 11/15/2022 11/16/2022 Malignant neoplasm of overla pping sites of breast 04/18/2018 11/16/2022 Overview (01/08/2024): Replacing diagnoses that were inactivated after the 01/08/24 Regulatory Import Obesity 12/15/2016 11/15/2022 11/16/2022 Chronic constipation 12/15/2016 11/15/2022 023 Osteopenia 11/17/2016 11/15/2022 11/16/2022 Immunizations Immunization Administration Dates Next Due Influenza Split High Dose Preservative Free IM 0 12/31/2017 Influenza, Quadrivalent, Preservative Free 03/26 Influenza, Quadrivalent, With Preservative 02/13 Influenza, Unspecified 02/06/2022 Moderna SARS-COV-2 07/06/2020,06/08/2020 Pneumococcal Conjugate 13-Valent 12/15/2016 Pneumococcal Polysaccharide 02/06/2022 Tdap 12/15/2016 Zoster 02/13/2017 Social History Tobacco Use Types Packs/Day Years Used Date Smoking Tobacco: Never Assessed Comments Unknown Sex and Gender Information Value Date Recorded Sex Assigned at Not on file Legal Sex Female 12:50 PM EDT Gender Identity Not on file Sexual Orientation Not on file Last Filed Vital Signs Vital Sign Reading Time Taken Comments Blood Pressure 160/85 01/04/2023 3:27 PM EDT Pulse 64 01/04/2023 3:27 PM EDT Temperature - - Respiratory Rate - - Oxygen Saturation 99% 01/04/2023 3:27 PM EDT Inhaled Oxygen Concentration - - Weight 79.7 kg (175 lb 9.6 oz) 01/04/2023 3:27 P M EDT Height - - Body Mass Index - - Plan of Treatment Health Maintenance Due Date Last Done Comments Influenza Vaccine (#1) 2024 , 03/26/2019, 12/31/2017, Additional history exists Pneumococcal Vaccine: 50+ Years Completed 02/06/2022, 12/15/2016 Hepatitis B Vaccine Aged Out No longe r eligible based on patient's age to complete this topic Insurance Medicaid [place] Medicare Medicare Medicaid [place] Care Teams Cycle Liaison Relationship Specialty Start Date End Date Ana Maria Mcclellan DO [address] [place] [address] PCP - General Family Medicine 10/03/22
--- NOTE | 2024-11-16 10:53 | ECG_ITS ---
Test Reason : hypertension Blood Pressure : */* mmHG Vent. Rate : 73 BPM Atrial Rate : 73 BPM P-R Int : 130 ms QRS Dur : 86 ms QT Int : 392 ms P-R-T Axes : 35 23 34 degrees QTcB Int : 431 ms Normal sinus rhythm Normal ECG When compared with ECG of 09-Mar-2020 21:37, No significant change was found Referred By: Raffi Orourke Electronically Signed By: Stephen Delarosa
--- NOTE | 2024-11-16 11:09 | ED.GENADULT ---
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 Patient denies any recent heavy lifting, trauma or injury to her back. Patient states that her symptoms started approximately 2 weeks ago. Patient reports that the pain starts in her left low back, and occasionally radiates into her left flank as well as her left buttocks. She denies any fevers, chills, chest pain, shortness of breath, abdominal pain, nausea, vomiting or diarrhea. She does report some constipation, however states that this is typical of her. Patient does admit to having urinary frequency and urgency, denies dysuria or hematuria. She does report a history of kidney stones, and states that her symptoms feel similar. Denies taking any medications at home to treat her current symptoms. Pain does not worsened with positional changes. Denies any saddle anesthesia. No other complaints or concerns at this time. MD complaint: Back pain Onset (ago): day(s) Relieving factors: none Exacerbating factors: none Associated symptoms: denies other symptoms Treatments prior to arrival: none Related Data Home Medications ?Medication ?Instructions ?Recorded ?Confirmed multivitamin 1 tab PO DAILY 04/26/22 09/07/23 amlodipine 10 mg tablet 10 mg PO DAILY 07/12/22 09/07/23 acetaminophen 650 mg 650 mg PO Q8H PRN Pain 07/21/22 09/07/23 tablet,extended release docusate sodium 100 mg capsule 100 mg PO DAILY PRN constipation 07/21/22 09/07/23 hydrochlorothiazide 25 mg tablet 25 mg PO QAM 07/21/22 09/07/23 lisinopril 30 mg tablet 30 mg PO QAM 07/21/22 09/07/23 pravastatin 40 mg tablet 40 mg PO QPM 07/21/22 09/07/23 calcium 500 mg (as 1 tab PO DAILY 05/01/23 09/07/23 carbonate)-vitamin D3 10 mcg (400 unit) tablet (Oyster Shell Calcium-Vitamin D3) lisinopril 10 mg tablet 10 mg PO DAILY blood pressure 05/01/23 09/07/23 metoprolol succinate 50 mg 50 mg PO DAILY 05/01/23 09/07/23 tablet,extended release 24 hr Previous Rx's ?Medication ?Instructions ?Recorded spironolactone 25 1 tab PO QAM #90 tabs 02/12/24 mg-hydrochlorothiazide 25 mg tablet acetaminophen 650 mg 650 mg PO Q12H PRN pain #30 tabs 11/16/24 tablet,extended release (Tylenol 8 Hour) cefpodoxime 200 mg tablet 200 mg PO BID 10 days #20 tabs 11/16/24 lidocaine 5 % topical patch 1 patch topical DAILY #30 ea 11/16/24 Allergies Allergy/AdvReac Type Severity Reaction Status Date / Time No Known Allergies Allergy Verified 11/16/24 10:32 Review of Systems Review of Systems: Yes all other systems are reviewed and are negative Constitutional: Constitutional: Reports as per [facility] Past Medical History Attestation statement: The following information was validated with the patient. Medical History Breast cancer HTN (hypertension) Osteopenia Low back pain Restless leg syndrome Anxiety Carcinoma of left breast Surgical History History of lumpectomy of left breast History of tubal ligation History of appendectomy H/O hernia repair Social History Social History Household Members: Family Household Members Other:: Son, DIL, [facility] Housing: House Are you a primary care connector to a significant other at home: No Do you presently have visiting nurse or other home services: No Patient Tobacco Use Status: Never used Tobacco Second Hand Smoke Exposure: No Current occupational status: retired Physical Exam ED Vital Signs: Vital Signs - 24 hr 11/16/24 10:21 11/16/24 10:41 11/16/24 12:00 Temperature 97.8 F Pulse Rate 88 84 81 Respiratory Rate 18 18 21 H Blood Pressure 214/102 H 198/92 H 172/152 H Pulse Oximetry 98 95 100 Oxygen Delivery Method Room Air Room Air Room Air 11/16/24 14:21 Temperature Pulse Rate 87 Respiratory Rate 18 Blood Pressure 167/101 H Pulse Oximetry 97 Oxygen Delivery Method Room Air BMI result Body Mass Index 27.6 Const General: cooperative, comfortable and no acute distress Orientation/consciousness: patient oriented x3 Limitations: no limitations HENMT Head: Yes normal to inspection, Yes normocephalic and Yes atraumatic Ears: hearing grossly normal bilaterally General nose exam: Normal external nose present Face and sinus: Yes normal facial exam Mouth: Normal oral and palatal mucosa present, oropharynx normal and moist mucous membranes Throat: Yes posterior oropharynx normal Eyes General: appearance normal, both eyes and all related structures Eyelids: Yes eyelids normal Conjunctivae: conjunctivae normal Sclerae: sclerae normal Pupils: Equal, round and reactive pupils present EOM: EOMs intact bilaterally Neck Neck: Yes normal visual inspection, Yes full ROM and Yes no lymphadenopathy Lymphatic: no lymphadenopathy noted Chest Chest palpation & inspection: normal inspection of the chest Resp Effort & Inspection: normal respiratory effort and able to speak in complete sentences Auscultation: clear to auscultation bilaterally, no crackles, no rales, no rhonchi and no wheezes Cardio Rate: regular rate Rhythm: regular rhythm Heart sounds: S1 normal heart sound present and S2 normal heart sound present GI Inspection: Yes normal to inspection Back/Spine/Pelvis Other: Patient has tenderness palpation along the left CVA. Patient also has tenderness palpation along the lumbar spine and left SI joint. Skin General skin exam: no rashes or lesions noted Trauma: no lacerations or abrasions Wounds: no wounds Neuro General: patient oriented x3 and moves all extremities Cranial nerves: Yes Equal, round and reactive pupils present Extrem General: Yes normal to inspection Right upper extremity: normal to inspection Left upper extremity: normal to inspection Right lower extremity: normal to inspection Left lower extremity: normal to inspection Medications Administered Discontinued Medications Generic Name Dose Route Start Last Admin Trade Name Freq PRN Reason Stop Dose Admin Ceftriaxone Sodium 1 gm 11/16/24 12:44 11/16/24 14:31 Ceftriaxone Sodium 1 Gm Vial IVPUSH 11/16/24 12:45 1 gm ONCE ONE Administration Medical Decision Making Medical Decision Making MDM Narrative: This is a 79-year-old female who presents emergency department with concerns of left flank pain, and urinary symptoms which started 2 weeks ago. On arrival, patient was hypertensive at 214/102, this has improved significantly without any interventions to 164/82. Patient does have mild tenderness palpation along the left CVA region. Differential diagnoses include nephrolithiasis, UTI, osteoarthritis, lumbar radiculopathy, disc herniation, muscle spasm, malignancy. Presentation not consistent fracture (no trauma, no bony tenderness to palpation), cauda equina syndrome. Will obtain labs, UA, and CT abdomen and pelvis. Offered pain medication, patient declines at this time. We will continue to closely monitor. Course: CT revealing gas in the bladder and nonobstructing stones. Discussed with patient and family at bedside. Given IV dose of ceftriaxone. Given mild left sided CVA tenderness will treat with cefpodoxime 200mg BID x 10 days. Advised to f/u with PCP and given return precautions. She understands and agrees with plan. Pt stable for d/c. Differential Diagnosis Differential Diagnoses: The differential diagnosis associated with the presentation includes See above Lab Data MDM Lab Attestation statement: I reviewed the patient's lab results. No leukocytosis, H&H stable, CHEM revealing no acute electrolyte derangements. UA appears to be infected. 11/16/24 12:14 11/16/24 12:14 Labs: Lab Results 11/16/24 11/16/24 Range/Units 12:14 13:45 WBC 6.3 (4.8-10.8) X10*3/uL RBC 5.55 H (4.20-5.50) X10*6/uL Hgb 12.9 (12.0-16.0) g/dl Hct 39.1 (37.0-47.0) % MCV 70.5 L (80.0-98.0) fL MCH 23.2 L (27.0-33.0) pg MCHC 33.0 (31.0-35.0) g/dl RDW 15.0 (11.0-16.0) % Plt Count 242 (160-400) X10*3/uL MPV 10.3 (9.4-12.3) fL Immature Gran % (Auto) 0.2 (0.0-0.4) % Neut % (Auto) 49.7 (45-73) % Lymph % (Auto) 43.8 H (20-40) % [place] % (Auto) 5.8 (2-11) % Eos % (Auto) 0.2 (0-4) % Baso % (Auto) 0.3 (0-2) % Lymph # (Auto) 2.8 (1.2-4.9) X10*3/uL [place] # (Auto) 0.4 (0.1-1.2) X10*3/uL Eos # (Auto) 0.0 (0.0-0.4) X10*3/uL Baso # (Auto) 0.0 (0.0-0.2) X10*3/uL Abs Immat Gran (auto) 0.01 (0.00-0.03) X10*3/uL Absolute Neuts (auto) 3.2 (2.0-8.3) x10*3/uL Absolute Nucleated RBC 0.000 (0.0-0.012) X10*3/uL Nucleated RBC % (auto) 0.0 (0.0-0.2) /100WBC Sodium 142 (135-145) mmol/L Potassium 4.4 (3.3-5.1) mmol/L Chloride 106 (96-108) mmol/L Carbon Dioxide 27 (22-29) mmol/L Anion Gap 13 (12-20) BUN 20 H (9-16) mg/dL Creatinine 0.89 (0.5-1.4) mg/dL Estim Creat Clear Calc 48.3 Estimated GFR > 60 Random Glucose 106 (60-115) mg/dL Lactic Acid 0.9 (0.5-2.0) mmol/L Calcium 9.8 (8.4-10.2) mg/dL Magnesium 1.9 (1.6-2.6) mg/dL Total Bilirubin 0.4 (0.0-1.0) mg/dL Direct Bilirubin 0.1 (0.0-0.5) mg/dL AST 28 (5-31) U/L ALT 16 (0-31) U/L Alkaline Phosphatase 112 (39-117) U/L Total Protein 7.5 (6.5-8.0) g/dL Albumin 4.3 (3.5-5.0) g/dL Urine Color Yellow Urine Appearance Clear Urine pH 7.0 (5.0-9.0) Ur Specific [place] 1.010 (1.005-1.025) Urine Protein 30 (1+) H (Neg-Trace) mg/dL Urine Glucose (UA) Negative (Negative) mg/dL Urine Ketones Negative (Negative) mg/dL Urine Blood Negative (Negative) Urine Nitrite Negative (Negative) Ur Leukocyte Esterase Large (3+) H (Negative) Urine RBC 0-2 (0-2) /HPF Urine WBC >50 H (0-5) /HPF Ur Squamous Epith Cells 0-2 (0-2) /HPF Urine Bacteria 4+ (None Seen) Hyaline Casts 0-2 (0-2) /LPF Independent Interpretation I performed an independent interpretation of an: EKG Interpretation: EKG NSR at a ventricular rate of 73bpm, AK interval 130, QT/QTC 392/431, no STEMI Radiology Impression Discussion of test interpretation with radiology: I have reviewed the radiologist's reading. Radiologist Impression: Comparison: CT/REG/SR - CT ABDOMEN WITHOUT THEN WITH IV CONTRAST - 12/27/22 11:00 EDT Findings: No consolidation or effusion. The unenhanced liver, spleen, gallbladder, adrenal glands and pancreas are unremarkable. There are nonobstructing calculi within each kidney, the largest on the left measuring 2 mm and on the right measuring 3 mm. No ureteral calculus identified. Nonspecific gas within the bladder. No bowel obstruction or free air. Moderate fecal retention. No free fluid, abscess or adenopathy. Moderately severe atherosclerotic disease. No acute osseous finding. Degenerative changes seen within the spine. Patchy demineralization also present. Impression: Nonobstructing bilateral renal calculi. Gas within the bladder, nonspecific. Correlation for recent catheterization or urinary tract infection. This document has been electronically signed by: Markus Ryan MD on 11/16/2024 13:00:59 Dictated By: Markus Ryan MD Signed By: <Electronically signed Discharge Plan Discharge Clinical Impression: Acute UTI Patient Disposition: Home, Self-Care Instructions: Urinary Tract Infection in Women (ED) Additional Instructions: You were seen in the emergency department you were found to have a urinary tract infection. You also have degenerative changes(arthritis) seen on your CT scan. You also have some kidney stones, these are nonobstructing, and should not cause you to have any discomfort. Please continue antibiotic as directed, take 2nd dose tonight. Finish the entire course even if your symptoms improve. We will call you if we need to change the antibiotic. Drink plenty of fluids and get plenty of rest. You may take Tylenol as needed for pain. Lidocaine patches can also be helpful. Please follow-up with your primary care physician regarding this visit. Call tomorrow to make an appointment If any new or worsening symptoms occur including but not limited to severe abdominal pain, high fevers, severe chest pain or shortness of breath, please seek emergent care. Prescriptions: New cefpodoxime 200 mg tablet 200 mg PO BID 10 Days Qty: 20 0RF Rx Instructions: must administer with a meal/food acetaminophen [Tylenol 8 Hour] 650 mg tablet extended release 650 mg PO Q12H PRN (Reason: pain) Qty: 30 0RF lidocaine 5 % adhesive patch,medicated 1 patch topical DAILY Qty: 30 0RF Rx Instructions: leave on most painful area for up to 12 hrs No Action spironolacton-hydrochlorothiaz 25-25 mg tablet 1 tab PO QAM Qty: 90 0RF multivitamin Tablet 1 tab PO DAILY metoprolol succinate 50 mg Tablet Extended Release 24 Hr 50 mg PO DAILY lisinopril 10 mg tablet 10 mg PO DAILY Rx Instructions: one 10 mg tab + one 30 mg tab = 40 mg daily calcium carbonate-vitamin D3 [Oyster Shell Calcium-Vit D3] 500 mg-10 mcg (400 unit) tablet 1 tab PO DAILY pravastatin 40 mg tablet 40 mg PO QPM acetaminophen 650 mg tablet extended release 650 mg PO Q8H PRN (Reason: Pain) lisinopril 30 mg tablet 30 mg PO QAM Rx Instructions: one 10 mg tab + one 30 mg tab = 40 mg daily docusate sodium 100 mg capsule 100 mg PO DAILY PRN (Reason: constipation) hydrochlorothiazide 25 mg tablet 25 mg PO QAM amlodipine 10 mg tablet 10 mg PO DAILY Interventions: ED Discharge Assessment Last Done: 11/16/24 15:19 Discharge Date/Time: 11/16/24 15:19 Print Language: Setswana
[2024-11-16 12:00] VITALS: BP 172/152; PULSE 81; RESP 21; O2SAT 100
[2024-11-16 12:18] LABS: MANUAL DIFF FLAG NO
[2024-11-16 12:19] LABS: Hematocrit 39.1 % (37.0-47.0); Hemoglobin 12.9 g/dl (12.0-16.0); Imm Gran Abs Auto 0.01 X10*3/uL (0.00-0.03); Imm Gran Pct Auto 0.2 % (0.0-0.4); Lymphocytes Absolute Auto 2.8 X10*3/uL (1.2-4.9); Mean Corpuscular HGB Conc 33.0 g/dl (31.0-35.0); Mean Corpuscular Hemoglobin 23.2 pg (27.0-33.0); Mean Corpuscular Volume 70.5 fL (80.0-98.0); NRBC Abs Auto 0.000 X10*3/uL (0.0-0.012); NRBC Pct Auto 0.0 /100WBC (0.0-0.2); Platelet Count 242 X10*3/uL (160-400); Red Blood Count 5.55 X10*6/uL (4.20-5.50); White Blood Count 6.3 X10*3/uL (4.8-10.8)
[2024-11-16 12:21] LABS: Appearance Urine Clear; Glucose Urine UA Negative (Negative); PH 7.0 (5.0-9.0); Specific Gravity - Urine 1.010 (1.005-1.025); UMIC TRIGGER UACC YES
[2024-11-16 12:23] LABS: UACC Culture Trigger YES
--- NOTE | 2024-11-16 12:29 | PC.NURSE ---
IVON Baez aware of pt BP. Pt denies headache/dizziness/blurry vision. BP cycling q15 to monitor pt BP.
[2024-11-16 12:32] LABS: Alanine Aminotransferase 16 U/L (0-31); Albumin Level 4.3 g/dL (3.5-5.0); Alkaline Phosphatase 112 U/L (39-117); Anion Gap 13 (12-20); Aspartate Amino Transferase 28 U/L (5-31); Blood Urea Nitrogen 20 mg/dL (9-16); Calcium 9.8 mg/dL (8.4-10.2); Carbon Dioxide 27 mmol/L (22-29); Chloride 106 mmol/L (96-108); Creatinine Clr Calc Pharmacy 48.3; Estimated Glomerular Filt Rate > 60; Magnesium 1.9 mg/dL (1.6-2.6); Potassium 4.4 mmol/L (3.3-5.1); Sodium 142 mmol/L (135-145); Total Protein 7.5 g/dL (6.5-8.0)
[2024-11-16 14:21] VITALS: BP 167/101; PULSE 87; RESP 18; O2SAT 97
[2024-11-16 15:19] VITALS: BP 167/101; PULSE 87; RESP 18; TEMP 36.6; O2SAT 97
== END 2024-11-16 15:19 | disposition home or self-care (01) ==
PROVIDERS: Physician Assistant Medical; Emergency Provider Emergency Medicine
DX: N39.0 Urinary tract infection, site not specified (principal); M54.50 Low back pain, unspecified; R10.2 Pelvic and perineal pain; K59.00 Constipation, unspecified; R35.0 Frequency of micturition; I10 Essential (primary) hypertension; Z79.899 Other long term (current) drug therapy; Z87.442 Personal history of urinary calculi
CPT/HCPCS: 36415; 74176; 80048; 80076; 81001; 83605; 83735; 85025; 87040; 87086; 93005; 96374; 99284; 99285; J0696

== ENCOUNTER → 2024-11-16 10:53 | Outpatient (BNV) | payer OTHER, SELFPAY | PROVIDERS: Emergency Provider Emergency Medicine; Visit Provider Internal Medicine Cardiovascular Disease | DX: I10 Essential (primary) hypertension (principal) | CPT/HCPCS: 93010 ==

== ENCOUNTER → 2024-11-16 11:43 | Outpatient (BNV) | payer OTHER, SELFPAY | PROVIDERS: Emergency Provider Emergency Medicine; Visit Provider Radiology Vascular & Interventional Radiology | DX: N20.0 Calculus of kidney (principal) | CPT/HCPCS: 74176 ==

== ENCOUNTER 2024-12-16 10:03 | Outpatient (REF) | payer OTHER, SELFPAY ==
--- OUTSIDE RECORDS SUMMARY | 2024-12-16 09:00 | XMS_ITS | Encounter Summary ---
Author Organization [employer] [facility] Address [address] [place] [address] Care Team Providers Care Lead Ingot Molder Name Role Phone Ana Maria Mcclellan DO Primary Care Provider [phone] Reason for Referral * Imaging (Routine) - Authorized Specialty Diagnoses / Procedures Referred By Julietaac t Referred To Contact Radiology Diagnoses Osteopenia, unspecified location Procedures BD DEXA Axial Ana Maria Mcclellan DO [address] [place] [address] Phone: tel: fax: [address] Phone: tel: fax: Referral ID Status Reason Start Date Expiration Date V isits Requested Visits Authorized [id number] Authorized 12/16/2024 12/16/2025 1 1 * Imaging (Routine) - Authorized Specialty Diagnoses / Procedures Referred By Contac t Referred To Contact Radiology Diagnoses Intraductal carcinoma of left breast Procedures BI Mammogram Screening Tomosynthesis Bilateral Ana Maria Mcclellan DO [address] [place] [address] Phone: tel: fax: [address] Phone: tel: fax: Referral ID Status Reason Start Date Expiration Date V isits Requested Visits Authorized [id number] Authorized 12/16/2024 12/16/2025 1 1 * Neurology (Routine) - Authorized Specialty Diagnoses / Procedures Referred By Contac t Referred To Contact Diagnoses Chronic bilateral low back pain with left-sided sciatica Procedures Nerve conduction test Ana Maria Mcclellan DO [address] [place] [address] Phone: tel: fax: [address] Phone: tel: fax: Referral ID Status Reason Start Date Expiration Date V isits Requested Visits Authorized [id number] Authorized 12/16/2024 12/16/2025 1 1 * Neurology (Routine) - Authorized Specialty Diagnoses / Procedures Referred By Contac t Referred To Contact Diagnoses Chronic bilateral low back pain with left-sided sciatica Procedures EMG Ana Maria Mcclellan DO [address] [place] [address] Phone: tel: fax: [address] Phone: tel: fax: Referral ID Status Reason Start Date Expiration Date V isits Requested Visits Authorized [id number] Authorized 12/16/2024 12/16/2025 1 1 * Imaging (Routine) - Pending Review Specialty Diagnoses / Procedures Referred By Contac t Referred To Contact Radiology Diagnoses Unintentional weight loss Procedures CT Abdomen Pelvis w/ Contrast Ana Maria Mcclellan DO [address] [place] [address] Phone: tel: fax: Referral ID Status Reason Start Date Expiration Date V isits Requested Visits Authorized [id number] Pending Review 12/16/2024 12/16/2025 1 1 * Imaging (Routine) - Pending Review Specialty Diagnoses / Procedures Referred By Contac t Referred To Contact Radiology Diagnoses Unintentional weight loss Procedures CT Chest w/ Contrast Ana Maria Mcclellan DO [address] [place] [address] Phone: tel: fax: Referral ID Status Reason Start Date Expiration Date V isits Requested Visits Authorized [id number] Pending Review 12/16/2024 12/16/2025 1 1 * Consultation (STAT) - Authorized Specialty Diagnoses / Procedures Referred By Loyda westbrook Referred To Contact Pharmacy Diagnoses Essential hypertension Ana Maria Mcclellan DO [address] [place] [address] Phone: tel: fax: Referral ID Status Reason Start Date Expiration Date Visits Requested Visits Authorized [id number] Authorized Continuity of Care 12/16/2024 12/16/2025 6 6 Encounter Details Date Type Department Care Team (Latest Contact Info) Description 12/16/2024 9:00 AM EDT Office Visit [facility] [address] [place] [phone] Ana Maria Mcclellan DO [address] [place] [phone] Essential hypertension (Primary Dx); Other hyperlipidemia; Intraductal carcinoma of left breast; Chronic left hip pain; Chronic pain of left knee; Chronic bilateral low back pain with left-sided sciatica; Low TSH level; Unintentional weight loss; Chronic constipation; Healthcare maintenance; Dietary counseling; Exercise counseling; Hyperlipidemia, unspecified hyperlipidemia type; Osteopenia, unspecified location Social History Tobacco Use Types Packs/Day Years Used Date Smoking Tobacco: Never Passive Smoke Exposure: Never Smokeless Tobacco: Never Alcohol Use Standard Drinks/Week Comments Never 0 (1 standard drink = 0.6 oz pur e alcohol) Alcohol Answer Date Recorded Frequency of Alcohol Consumption Not on file 03/22/2023 Average Number of Drinks Not on file 023 Frequency of Binge Drinking Not on file 03/09 Score 0 03/22/2023 Depression Answer Date Recorded Patient Health Questionnaire-9 Score 7 12/16/2024 Patient Health Questionnaire-9 Score 7 12/16/2024 Last PHQ-9: Questionnaire Data Not on file 0 12/16/2024 Housing Stability Answer Date Recorded What is your housing situation today? I do not have housing (Staying with others, in a hotel, in a fpc, living outside on the street, on a beach, in a car, or in a park 12/16/[address] you li ve. Do you have problems with any of the following? None of the above 12/16/2024 Food Insecurity Answer Date Recorded Within the past 12 months, y ou worried that your food would run out before you got money to buy more: Sometimes True 2024 Within the past 12 months,th e food you bought just didn't last and you didn't have enough money to get more: Sometimes True 12/16/2024 Transportation Answer Date Recorded In the past 12 months, has l ack of transportation kept you from medical appts, meetings, work or from getting things needed for daily living? Yes, it has kept me from medical appointments or getting medications. 12/16/2024 Utilities Answer Date Recorded In the past 12 months, has t he [employer], gas, oil or water [employer] threatened to shut off services in your home? No 01/26/2023 Depression Answer Date Recorded Patient Health Questionnaire-2 Score 2 12/16/2024 Internet Access Answer Date Recorded Internet Access Q1 No 12/16/2024 Internet Access Q2 My internet/Wi-Fi ac cess is not consistent or reliable 12/16/2024 Comments No Sex and Gender Information Value Date Recorded Sex Assigned at Female 02/06/2022 10:22 AM EDT Legal Sex Female 10:22 AM EDT Gender Identity Female 02/06/2022 10:22 AM EDT Sexual Orientation Choose not to disclose 2021 10:22 AM EDT documented as of this encounter Last Filed Vital Signs Vital Sign Reading Time Taken Comments Blood Pressure 162/82 12/16/2024 9:46 AM EDT Pulse 86 12/16/2024 9:06 AM EDT Temperature 36.1 C (97 F) 12/16/2024 9:06 AM EDT Respiratory Rate 21 12/16/2024 9:06 AM EDT Oxygen Saturation 98% 12/16/2024 9:06 AM EDT Inhaled Oxygen Concentration - - Weight 72.6 kg (160 lb) 12/16/2024 9:06 AM EDT Height 160 cm (5' 3 ) 12/16/2024 9:06 AM EDT Body Mass Index 28.34 12/16/2024 9:06 AM EDT documented in this encounter Functional Status * Over the past 2 weeks, how often have you been bothered by any of the following problems? Question Answer Date of Assessment Author Patient Health Questionnaire -2 Score 2 12/16/2024 10:12 AM EDT Nona Carson [place] * Little interest or pleasure in doing things Answer Date of Assessment Author Several days 12/16/2024 10:12 AM EDT Nona Carson [place] * Feeling down, depressed, or hopeless Answer Date of Assessment Author Several days 12/16/2024 10:12 AM EDT Nona Carson [place] * Trouble falling or staying asleep, or sleeping too much Answer Date of Assessment Author Nearly every day 12/16/2024 10:12 AM EDT Nona Carson [place] * Feeling tired or having little energy Answer Date of Assessment Author Several days 12/16/2024 10:12 AM EDT Nona Carson [place] * Poor appetite or overeating Answer Date of Assessment Author Not at all 12/16/2024 10:12 AM EDT Nona Carson [place] * Feeling bad about yourself - or that you are a failure or have let yourself or your family down Answer Date of Assessment Author Not at all 12/16/2024 10:12 AM ENRIQUETAT Nona Carson [place] * Trouble concentrating on things, such as reading the newspaper or watching television Answer Date of Assessment Author Several days 12/16/2024 10:12 AM Nona Triplett [place] * Moving or speaking so slowly that other people could have noticed? Or the opposite - being so fidgety or restless that you have been moving around a lot more than usual. Answer Date of Assessment Author Not at all 12/16/2024 10:12 AM Nona Triplett [place] * Thoughts that you would be better off or hurting yourself in some way Answer Date of Assessment Author Not at all 12/16/2024 10:12 AM Nona Triplett [place] * Patient Health Questionnaire-9 Score Answer Date of Assessment Author 7 12/16/2024 10:12 AM Nona Triplett [place] * How difficult have these problems made it for you to do your work, take care of things at home, or get along with other people? Answer Date of Assessment Author Somewhat difficult 12/16/2024 10:12 AM Nona Welch MA * Over the last 2 weeks, how often have you been bothered by any of the following problems? Question Answer Date of Assessment Author Feeling nervous, anxious, or on edge 2 12/16/2024 10:13 AM Nona Triplett MA Not being able to stop or co ntrol worrying 1 12/16/2024 10:13 AM Nona Triplett MA Worrying too much about diff erent things 3 12/16/2024 10:13 AM Nona Triplett [place] Trouble relaxing 3 12/16/2024 10:13 AM Nona Triplett [place] Being so restless that it is hard to sit still 2 12/16/2024 10:13 AM Nona Triplett MA Becoming easily annoyed or irritable 3 12/16/2024 10:13 AM Nona Triplett MA Feeling afraid as if somethi ng awful might happen 1 12/16/2024 10:13 AM Nona Triplett MA SEAN-7 Total Score 15 12/16/2024 10:13 AM Nona Triplett MA documented as of this encounter Plan of Treatment Scheduled Orders Name Type Priority Associated Diagnoses Orde r Schedule XR Lumbar Spine 2-3 Views Imaging Routine Chronic bilateral low back pain with left-sided sciatica Expected: 12/16/2024, Expires: 12/16/2025 Vitamin D, 25-Hydroxy, Total, Immunoassay Lab Routine Essential hypertension Other hyperlipidemia Intraductal carcinoma of left breast Chronic left hip pain Chronic pain of left knee Chronic bilateral low back pain with left-sided sciatica Low TSH level Unintentional weight loss Chronic constipation Healthcare maintenance Dietary counseling Exercise counseling Expected: 12/16/2024 (Approximate), Expires: 12/16/2025 Lipid Panel, Standard Lab Routine Essential hypertension Other hyperlipidemia Intraductal carcinoma of left breast Chronic left hip pain Chronic pain of left knee Chronic bilateral low back pain with left-sided sciatica Low TSH level Unintentional weight loss Chronic constipation Healthcare maintenance Dietary counseling Exercise counseling Expected: 12/16/2024 (Approximate), Expires: 12/16/2025 Albumin, Random Urine W/Creatinine Lab Routine Essential hypertension Other hyperlipidemia Intraductal carcinoma of left breast Chronic left hip pain Chronic pain of left knee Chronic bilateral low back pain with left-sided sciatica Low TSH level Unintentional weight loss Chronic constipation Healthcare maintenance Dietary counseling Exercise counseling Expected: 12/16/2024 (Approximate), Expires: 12/16/2025 Urinalysis Complete Lab Routine Essential hypertension Other hyperlipidemia Intraductal carcinoma of left breast Chronic left hip pain Chronic pain of left knee Chronic bilateral low back pain with left-sided sciatica Low TSH level Unintentional weight loss Chronic constipation Healthcare maintenance Dietary counseling Exercise counseling Expected: 12/16/2024, Expires: 12/16/2025 Sed Rate by Modified [place] Lab Routine Essential hypertension Other hyperlipidemia Intraductal carcinoma of left breast Chronic left hip pain Chronic pain of left knee Chronic bilateral low back pain with left-sided sciatica Low TSH level Unintentional weight loss Chronic constipation Healthcare maintenance Dietary counseling Exercise counseling Expected: 12/16/2024, Expires: 12/16/2025 T-SPOT .TB Lab Routine Essential hypertension Other hyperlipidemia Intraductal carcinoma of left breast Chronic left hip pain Chronic pain of left knee Chronic bilateral low back pain with left-sided sciatica Low TSH level Unintentional weight loss Chronic constipation Healthcare maintenance Dietary counseling Exercise counseling Expected: 12/16/2024 (Approximate), Expires: 12/16/2025 C-reactive Protein Lab Routine Essential hypertension Other hyperlipidemia Intraductal carcinoma of left breast Chronic left hip pain Chronic pain of left knee Chronic bilateral low back pain with left-sided sciatica Low TSH level Unintentional weight loss Chronic constipation Healthcare maintenance Dietary counseling Exercise counseling Expected: 12/16/2024 (Approximate), Expires: 12/16/2025 HIV-1/2 Antigen and Antibodies, Fourth Generation, with Reflexes Lab Routine Essential hypertension Other hyperlipidemia Intraductal carcinoma of left breast Chronic left hip pain Chronic pain of left knee Chronic bilateral low back pain with left-sided sciatica Low TSH level Unintentional weight loss Chronic constipation Healthcare maintenance Dietary counseling Exercise counseling Expected: 12/16/2024 (Approximate), Expires: 12/16/2025 Prealbumin Lab Routine Essential hypertension Other hyperlipidemia Intraductal carcinoma of left breast Chronic left hip pain Chronic pain of left knee Chronic bilateral low back pain with left-sided sciatica Low TSH level Unintentional weight loss Chronic constipation Healthcare maintenance Dietary counseling Exercise counseling Expected: 12/16/2024, Expires: 12/16/2025 T4, Free Lab Routine Essential hypertension Other hyperlipidemia Intraductal carcinoma of left breast Chronic left hip pain Chronic pain of left knee Chronic bilateral low back pain with left-sided sciatica Low TSH level Unintentional weight loss Chronic constipation Healthcare maintenance Dietary counseling Exercise counseling Expected: 12/16/2024 (Approximate), Expires: 12/16/2025 TSH Lab Routine Essential hypertension Other hyperlipidemia Intraductal carcinoma of left breast Chronic left hip pain Chronic pain of left knee Chronic bilateral low back pain with left-sided sciatica Low TSH level Unintentional weight loss Chronic constipation Healthcare maintenance Dietary counseling Exercise counseling Expected: 12/16/2024 (Approximate), Expires: 12/16/2025 Hepatic Function Panel Lab Routine Essential hypertension Other hyperlipidemia Intraductal carcinoma of left breast Chronic left hip pain Chronic pain of left knee Chronic bilateral low back pain with left-sided sciatica Low TSH level Unintentional weight loss Chronic constipation Healthcare maintenance Dietary counseling Exercise counseling Expected: 12/16/2024 (Approximate), Expires: 12/16/2025 CBC auto differential Lab Routine Essential hypertension Other hyperlipidemia Intraductal carcinoma of left breast Chronic left hip pain Chronic pain of left knee Chronic bilateral low back pain with left-sided sciatica Low TSH level Unintentional weight loss Chronic constipation Healthcare maintenance Dietary counseling Exercise counseling Expected: 12/16/2024 (Approximate), Expires: 12/16/2025 Basic Metabolic Panel Lab Routine Essential hypertension Other hyperlipidemia Intraductal carcinoma of left breast Chronic left hip pain Chronic pain of left knee Chronic bilateral low back pain with left-sided sciatica Low TSH level Unintentional weight loss Chronic constipation Healthcare maintenance Dietary counseling Exercise counseling Expected: 12/16/2024 (Approximate), Expires: 12/16/2025 Hepatitis C Antibody with Reflex to HCV, RNA, Quantitative, Real-Time PCR Lab Routine Essential hypertension Other hyperlipidemia Intraductal carcinoma of left breast Chronic left hip pain Chronic pain of left knee Chronic bilateral low back pain with left-sided sciatica Low TSH level Unintentional weight loss Chronic constipation Healthcare maintenance Dietary counseling Exercise counseling Expected: 12/16/2024, Expires: 12/16/2025 Hepatitis B Core Antibody, Total Lab Routine Essential hypertension Other hyperlipidemia Intraductal carcinoma of left breast Chronic left hip pain Chronic pain of left knee Chronic bilateral low back pain with left-sided sciatica Low TSH level Unintentional weight loss Chronic constipation Healthcare maintenance Dietary counseling Exercise counseling Expected: 12/16/2024 (Approximate), Expires: 12/16/2025 Hepatitis B surface antigen, EIA Lab Routine Essential hypertension Other hyperlipidemia Intraductal carcinoma of left breast Chronic left hip pain Chronic pain of left knee Chronic bilateral low back pain with left-sided sciatica Low TSH level Unintentional weight loss Chronic constipation Healthcare maintenance Dietary counseling Exercise counseling Expected: 12/16/2024 (Approximate), Expires: 12/16/2025 Hepatitis B Surface Antibody, Qualitative Lab Routine Essential hypertension Other hyperlipidemia Intraductal carcinoma of left breast Chronic left hip pain Chronic pain of left knee Chronic bilateral low back pain with left-sided sciatica Low TSH level Unintentional weight loss Chronic constipation Healthcare maintenance Dietary counseling Exercise counseling Expected: 12/16/2024 (Approximate), Expires: 12/16/2025 CT Chest w/ Contrast Imaging Routine Unintentional weight loss Expected: 12/16/2024, Expires: 12/16/2025 CT Abdomen Pelvis w/ Contrast Imaging Routine Unintentional weight loss Expected: 12/16/2024, Expires: 12/16/2025 EMG Neurology Routine Chronic bilateral low back pain with left-sided sciatica Expected: 12/16/2024, Expires: 06/15/2025 Nerve conduction test Neurology Routine Chronic bilateral low back pain with left-sided sciatica Expected: 12/16/2024 (Approximate), Expires: 12/16/2025 BI Mammogram Screening Tomosynthesis Bilateral Imaging Routine Intraductal carcinoma of left breast Expected: 12/16/2024, Expires: 02/15/2026 BD DEXA Axial Imaging Routine Osteopenia, unspecified location Expected: 12/16/2024, Expires: 12/16/2025 Scheduled Referrals Name Type Priority Associated Diagnoses Orde r Schedule Referral to Pharmacy MTM Outpatient Referral STAT Essential hypertension Ordered: 12/16/2024 documented as of this encounter Goals Goal Patient Goal Type Associated Problems Recent Progress Patient-Stated? Author Blood Pressure < 140/90 Blood Pressure 162/82( 025 9:46 AM EDT) No Caesar Fuller, PharmD documented as of this encounter Procedures Procedure Name Priority Date/Time Associated Diagnosis Comments HEMOGLOBIN A1C Routine 12/16/2024 10:12 AM EDT Essential hypertension Other hyperlipidemia Intraductal carcinoma of left breast Chronic left hip pain Chronic pain of left knee Chronic bilateral low back pain with left-sided sciatica Low TSH level Unintentional weight loss Chronic constipation Healthcare maintenance Dietary counseling Exercise counseling documented in this encounter Results * Hemoglobin A1c (12/16/2024 10:12 AM EDT) Hemoglobin A1c 6.0 <6.0 % [facility] Comment:Hemoglobin A1C Refer ence Range Adults: 4.8 - 6.0 % Non diabetic: < 6.0 % Goal: < 7.0 %Additional Action Suggested: > 8.0 %Note: Hemoglobin A1c results are invalid for patients with abnormal amounts of HbF. Blood transfusions may impact the HbA1c concentration in the patient sample. Estimated Average Glucose 126 mg/dL [facility] Comment:eAG = Estimated ave rage glucose which is %A1C expressed asaverage glucose, using the formula of the [id number] Glucose study (ADAG), Diabetes Care, Vol.31,#8,Nov. 2007 Blood Venous blood specimen / Unknown 12/16/2024 10:12 AM EDT 12/16/2024 11:20 AM EDT us Ana Maria Mcclellan DO LAB BLOOD ORDERABLES Final R esult [facility] [address] [place] [address] [phone] documented in this encounter Visit Diagnoses Diagnosis Essential hypertension- Primary Unspecified essential hypertension Hyperlipidemia, unspecified hyperlipidemia type Intraductal carcinoma of left breast Chronic left hip pain Chronic pain of left knee Chronic bilateral low back pain with left-sided sciatica Low TSH level Unintentional weight loss Loss of weight Chronic constipation Unspecified constipation Healthcare maintenance Dietary counseling Dietary surveillance and counseling Exercise counseling Osteopenia, unspecified location documented in this encounter Additional Health Concerns Assessment Noted Time PHQ-9 Depression Total Score: 7 12/17/19 25 10:12 AM EDT documented as of this encounter Care Teams Lead Ingot Molder Relationship Specialty Start Date End Date Ana Maria Mcclellan DO [address] [place] [address] PCP - General Family Medicine 11/29/21 documented as of this encounter
[2024-12-16 11:24] LABS: MANUAL DIFF FLAG NO
[2024-12-16 11:33] LABS: Hematocrit 40.6 % (37.0-47.0); Hemoglobin 13.1 g/dl (12.0-16.0); Imm Gran Abs Auto 0.02 X10*3/uL (0.00-0.03); Imm Gran Pct Auto 0.3 % (0.0-0.4); Lymphocytes Absolute Auto 2.7 X10*3/uL (1.2-4.9); Mean Corpuscular HGB Conc 32.3 g/dl (31.0-35.0); Mean Corpuscular Hemoglobin 23.1 pg (27.0-33.0); Mean Corpuscular Volume 71.6 fL (80.0-98.0); NRBC Abs Auto 0.000 X10*3/uL (0.0-0.012); NRBC Pct Auto 0.0 /100WBC (0.0-0.2); Platelet Count 335 X10*3/uL (160-400); Red Blood Count 5.67 X10*6/uL (4.20-5.50); White Blood Count 7.5 X10*3/uL (4.8-10.8)
[2024-12-16 11:45] LABS: Hemoglobin A1C 144.8884 umol/L; Total Hemoglobin (HGBA1C) 3450.4268 umol/L
--- OUTSIDE RECORDS SUMMARY | 2024-12-16 11:48 | XMS_ITS | Clinical Summary ---
Author Organization [employer] Address [address] [facility] [address] [place] [address] Care Team Providers Care Router Setter Name Role Phone Eleuterio Ana Maria Primary Care Provider [phone] Allergies No known active allergies Medications * This document contains information received from the source organization and may not represent a complete record from that organization. spironolactone-hy droCHLOROthiazide (Aldactazide) 25-25 MG tablet Take 1 tablet by mouth. 023 Active lidocaine (Lidoderm) 5 % patch Apply 1 patch topically Once per day. Remove & discard patch within 12 hours or as directed by MD. 30 patch 5 024 Active Blood Pressure kit 1 each 1 (one) time per week. 1 kit 024 Active lisinopril 40 MG tabletIndications :Essential hypertension Take 1 tablet (40 mg) by mouth in the morning. 30 tablet 025 2025 Active amLODIPine (Norvasc) 10 MG tabletIndications :Essential hypertension Take 1 tablet (10 mg) by mouth in the morning. 30 tablet Active metoprolol succinate XL (Toprol XL) 100 MG 24 hr tablet Take 1 tablet (100 mg) by mouth Once per day. Do not crush or chew. 30 tablet 025 2025 Active atorvastatin (Lipitor) 20 MG tablet Take 1 tablet (20 mg) by mouth Once per day. 30 tablet 025 2025 Active methylPREDNISolon e (Medrol Dospak) 4 MG tablets Follow schedule on package instructions 21 tablet 025 2024 Active Diclofenac Sodium 1 % gel Apply 2 g topically if needed in the morning, at noon, in the evening, and at bedtime (pain). 150 g 5 Active acetaminophen (Tylenol 8 Hour) 650 MG ER tablet TAKE 1 TABLET BY MOUTH EVERY 6 HOURS NEEDED FOR MILD PAIN. DO NOT BREAK, CRUSH, DISSOLVE OR CHEW 60 tablet 2 Active Multiple Vitamin (Multivitamin) tablet TAKE 1 TABLET BY MOUTH EVERY EVENING 30 tablet 11 Active Calcium Carb-Cholecalcife rol (Oyster Shell Calcium + D3) 500-10 MG-MCG tabletIndications :Hyperlipidemia, unspecified hyperlipidemia type Take 1 tablet by mouth 2 times daily. 60 tablet 025 2025 Active docusate sodium (Colace) 100 MG capsule Take 1 capsule (100 mg) by mouth 2 times daily. 60 capsule 2025 Active polycarbophil (Fibercon) 625 MG tablet Take 1 tablet (625 mg) by mouth 2 times daily. 60 tablet 2025 Active polyethylene glycol, PEG, 3350 (MiraLax) 17 GM/SCOOP powder Take 17 g by mouth if needed each day (constipation). 527 g 2025 Active baclofen (Lioresal) 10 MG tablet Take 0.5 tablets (5 mg) by mouth if needed in the morning, at noon, and at bedtime for muscle spasms. 40 tablet 3 2025 Active lisinopril 40 MG tabletIndications :Essential hypertension TAKE 1 TABLET BY MOUTH EVERY MORNING 90 tablet 3 024 2024 Discontinued(R eorder (will not trigger notification to Pharmacy)) amLODIPine (Norvasc) 10 MG tabletIndications :Essential hypertension TAKE 1 TABLET BY MOUTH EVERY MORNING 30 tablet 11 024 2024 Discontinued(R eorder (will not trigger notification to Pharmacy)) Multiple Vitamin (Multivitamin) tablet TAKE 1 TABLET BY MOUTH EVERY EVENING 90 tablet 1 2024 Discontinued(R eorder (will not trigger notification to Pharmacy)) Oyster Shell Calcium + D3 500-10 MG-MCG tabletIndications :Hyperlipidemia, unspecified hyperlipidemia type TAKE 1 TABLET BY MOUTH TWICE DAILY IN THE MORNING AND IN THE EVENING 180 tablet 1 2024 Discontinued(R eorder (will not trigger notification to Pharmacy)) pravastatin (Pravachol) 40 MG tabletIndications :Hyperlipidemia, unspecified hyperlipidemia type TAKE 1 TABLET BY MOUTH EVERY EVENING 90 tablet 1 2024 Discontinued metoprolol succinate XL (Toprol XL) 100 MG 24 hr tablet Take 1 tablet (100 mg) by mouth Once per day. Do not crush or chew. 30 tablet 11 2024 Discontinued(R eorder (will not trigger notification to Pharmacy)) baclofen (Lioresal) 10 MG tablet Take 0.5 tablets (5 mg) by mouth if needed in the morning, at noon, and at bedtime for muscle spasms. 40 tablet 3 2024 Discontinued(R eorder (will not trigger notification to Pharmacy)) acetaminophen (Tylenol 8 Hour) 650 MG ER tablet TAKE 1 TABLET BY MOUTH EVERY 6 HOURS NEEDED FOR MILD PAIN. DO NOT BREAK, CRUSH, DISSOLVE OR CHEW 60 tablet 2 2024 Discontinued(R eorder (will not trigger notification to Pharmacy)) Diclofenac Sodium 1 % gel Apply 2 g topically if needed in the morning, at noon, in the evening, and at bedtime (pain). 150 g 5 2024 Discontinued(R eorder (will not trigger notification to Pharmacy)) Active Problems Problem Noted Date Diagnosed Date Nephrolithiasis 01/10/2024 Bilateral renal cysts 01/10/2024 Healthcare maintenance 08/03/2023 Assessment & Plan (08/03/2023 1:54 PM EDT): -s/p flu vaccine MAR 2023 -she declines COVID vaccine -encouraged RSV vaccine -s/p Tdap DEC 2016 -s/p prevnar DEC 2016 -s/p pneumovax JAN 2022 -s/p zoster FEB 2017 -encouraged shingrix vaccine -Hep A immune -she has no h/o abnml pap smears, no need for further screening given age -mammo BIRADS 08 JAN 2023 -DEXA with osteopenia NOV 2016, repeat next visit -she has no h/o screening colonoscopy, check cologuard prior to next visit as not yet done -STI screen negative September 2022 History of depression 06/19/2022 Chronic knee pain 04/11/2022 Assessment & Plan (08/03/2023 1:53 PM EDT): With worsening pain -encouraged standing doses tylenol -encouraged diclofenac gel prn -trial lidocaine patches daily -trial tramadol BID severe pain, 1-week supply given -referred to ortho for f/u eval Hyperlipidemia 04/11/2022 Assessment & Plan (08/03/2023 1:51 PM EDT): LDL at goal SEP 2022 -cont pravastatin nightly -check lipids prior to next visit Osteoarthritis of knee 04/11/2022 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 Assessment & Plan (08/03/2023 1:52 PM EDT): BR/AZ+, HER-2 neg, s/p lumpectomy FEB 2018, s/p adjuvant RT MAY 2018 -completed letrozole therapy -mammo BIRADS 08 JAN 2023 -f/u with oncology next mos as scheduled Chronic constipation 12/15/2016 BMI 28.0-28.9,adult 12/15/2016 Osteopenia 11/17/2016 Essential hypertension 11/03/2016 Assessment & Plan (08/03/2023 1:51 PM EDT): BP elevated, asymptomatic -cont lisinopril, toprol, and amlodipine daily -cont aldactazide daily as per renal -strongly advised pt start home BP monitoring and bring BP log to next visit for review -renal US with b/l renal cysts September 2022 -CT abd with b/l renal cysts and b/l nonobstructing renal calculi DEC 2022 -Cr/GFR nml SEP 2022->repeat prior to next visit -she has nml EKG in chart -s/p optho eval JAN 2023 at [facility] for annual f/u -f/u with renal as scheduled Assessment & Plan (07/25/2022 10:19 AM EDT): See preop plan Assessment & Plan (07/05/2022 11:33 AM EDT): BMP: ordered today EKG: ordered today - Aerobic exercise to reduce BP. Initial goal of 30 min walk 3-5x/week. Increase as tolerated. - low-sodium diet (goal: <2g/day) and heart healthy diet such as DASH to reduce BP and prevent ASCVD. - Home BP monitoring 1-2 x day with goal of <140/90. - Seek immediate medical attention for chest pain, palpitations, SOB, syncope, or sudden changes in mental status. - c/w lisinopril 30mg daily and hydrochlorothiazide 25mg daily today I added amlodipine 5mg she will come back for BP check Resolved Problems Problem Noted Date Diagnosed Date Resolved Date Preop examination 07/05/2022 08/08/2022 Assessment & Plan (07/25/2022 10:17 AM EDT): Nataly is here today for pre-operative evaluation. Reports no sx of CP, SOB, PERALES, at rest or with exertion. No paroxsysmal nocturnal orthopnea, LE swelling or palpitations. No h/o CVD, diabetes, kidney disease, recent anticoagulant or antithrombotic use, personal h/o coagulopathy. No allergies to iodine, latex or tape. Nataly reports functional capacity of 4 METS, she can walk many blocks without SOB, she does her own grocery shopping and climbs stairs she can run across street Today her BP is high the plan is to add to her medications amlodipine 5mg daily and will come back for nurse visit for further adjustment if necessary if BP is 140/90mmhg or less I don't see any contraindication to g ahead wit her surgery her RCRI score is 0, I believe this patient is low risk for medium risk procedure Assessment & Plan (07/05/2022 11:31 AM EDT): Nataly is here today for pre-operative evaluation. Reports no sx of CP, SOB, PERALES, at rest or with exertion. No paroxsysmal nocturnal orthopnea, LE swelling or palpitations. No h/o CVD, diabetes, kidney disease, recent anticoagulant or antithrombotic use, personal h/o coagulopathy. No allergies to iodine, latex or tape. Nataly reports functional capacity of 4 METS, she can walk many blocks without SOB, she does her own grocery shopping and climbs stairs she can run across street Today her BP is high the plan is to add to her medications amlodipine 5mg daily and will come back for nurse visit for further adjustment if necessary if BP is 140/90mmhg or less I don't see any contraindication to g ahead wit her surgery her RCRI score is 0, I believe this patient is low risk for medium risk procedure Overweight 04/11/2022 06/19/2022 Multiple joint pain 05/08/2018 06/20/19 23 Breast lump 01/30/2018 06/19/2022 Dyslipidemia 12/15/2016 06/19/2022 Mixed anxiety and depressive disorder 11/03/2016 06/19/2022 Encounters Date Type Department Care Team Description 12/16/2024 9:00 AM EDT Office Visit [facility] [address] [place] [phone] Ana Maria Mcclellan DO Essential hypertension (Primary Dx); Other hyperlipidemia; Intraductal carcinoma of left breast; Chronic left hip pain; Chronic pain of left knee; Chronic bilateral low back pain with left-sided sciatica; Low TSH level; Unintentional weight loss; Chronic constipation; Healthcare maintenance; Dietary counseling; Exercise counseling; Hyperlipidemia, unspecified hyperlipidemia type; Osteopenia, unspecified location 12/16/2024 Travel 12/05/2024 Telephone [facility] [address] [place] [phone] Ana Maria Mcclellan DO Chart Prep 12/05/2024 Patient Outreach [facility] [address] [place] [address] Ana Maria Mcclellan DO Pre-visit Planning (SDOH screening completed on 07/11/2024) 11/27/2024 Travel from Last 3 Months Immunizations Immunization Administration Dates Next Due Influenza High-dose Quadrivalent Preservative Fr ee 02/06/2022 Influenza injectable quadriv alent IIV4 with preservative 02/13/2017 Influenza injectable quadrivalent preservative f ree 03/22/2023,03/26/2019 Influenza, High Dose Seasonal, Preservative Free 12/31/2017 Influenza, Unspecified 02/06/2022 Moderna Covid-19 Vaccine 12+ 07/06/2020,06/09/19 21 Pneumococcal Conjugate PCV 13 12/15/2016 Pneumococcal Polysaccharide PPSV23 02/06/2022 Tdap 12/15/2016 Zoster, live 02/13/2017 Family History Medical History Relation Name Comments Diabetes Father Diabetes Mother Breast cancer Sister Relation Name Status Comments Father Mother Sister Social History Tobacco Use Types Packs/Day Years Used Date Smoking Tobacco: Never Passive Smoke Exposure: Never Smokeless Tobacco: Never Tobacco Cessation:Counseling Given: Not Answered Alcohol Use Standard Drinks/Week Comments Never 0 [...] with others, in a hotel, in a [facility], living outside on the street, on a [...] the past 12 months, has t he electric, gas, oil or water company threatened to shut off services in your [...] not to disclose 2021 10:22 AM EDT Last Filed Vital Signs Vital Sign Reading [...] Mass Index 28.34 12/16/2024 9:06 AM EDT Plan of Treatment Health Maintenance Due Date Last Done Comments Dental X-Ray: Bitewings 1945 Dental X-Ray: Full Mouth 1945 Zoster Vaccines (2 of 3) 04/10/2017 02/13/2017 RSV Patients and Patients Aged 60 years or older (1 - 1-dose 75+ series) 2020 Dental Oral Exam 05/11/2022 11/07/2021, , 01/31/2019 Dental Prophylaxis 05/11/2022 11/07/2021, 1 05/26/2020, 10/01/2020, Additional history exists COVID-19 Vaccine (3 - 2024- season) 2024 07/06/2020, 06/08/2020 Influenza Vaccine (#1) 2024 , 02/06/2022, 02/06/2022, Additional history exists Tobacco Screening 01/09/2025 01/10/2024 Alcohol/Substance Use Screening 12/16/2025 12/16/2024 Depression Screening 12/16/2025 12/16/2024, 12/17/19 25 SDOH Screening 12/16/2025 12/16/2024 DTaP/Tdap/Td Vaccines (2 - Td or Tdap) 12/15/2026 12/15/2016 Lipid Panel 12/02/2028 12/03/2023, 09/07, 10/19/2021, Additional history exists Pneumococcal Vaccine: 50+ Years Completed 02/06/2022, 12/15/2016 Hepatitis C Screening Completed 09/21/2022, 022 HIB Vaccines Aged Out No longer eligi ble based on patient's age to complete this topic HPV Vaccines Aged Out No longer eligi ble based on patient's age to complete this topic Hepatitis A Vaccines Aged Out No long er eligible based on patient's age to complete this topic Hepatitis B Vaccines Aged Out No long er eligible based on patient's age to complete this topic IPV Vaccines Aged Out No longer eligi ble based on patient's age to complete this topic Meningococcal B Vaccine Aged Out No l onger eligible based on patient's age to complete this topic Meningococcal Vaccine Aged Out No michelle sharri eligible based on patient's age to complete this topic RSV under 20 months Aged Out No longe r eligible based on patient's age to complete this topic Rotavirus Vaccines Aged Out No longer eligible based on patient's age to complete this topic Goals Goal Patient Goal Type Associated Problems Recent Progress Patient-Stated? Author Blood Pressure < 140/90 Blood Pressure 162/82( 025 9:46 AM EDT) No Caesar Fuller, LuisD Procedures Procedure Name Priority Date/Time Associated Diagnosis Comments CBC WITH AUTO DIFFERENTIAL Routine 12/16/2024 10:12 AM EDT Essential hypertension HEMOGLOBIN A1C Routine 12/16/2024 10:12 AM EDT Essential hypertension Other hyperlipidemia Intraductal carcinoma of left breast Chronic left hip pain Chronic pain of left knee Chronic bilateral low back pain with left-sided sciatica Low TSH level Unintentional weight loss Chronic constipation Healthcare maintenance Dietary counseling Exercise counseling LIPID PANEL, STANDARD Routine 12/03/2023 11:46 AM EDT Essential hypertension Other hyperlipidemia Intraductal carcinoma of left breast Chronic pain of left knee Low TSH level Healthcare maintenance HEPATITIS C AB W/RFL RNA, PCR W/RFL GENOTYPE,LIPA Routine 09/21/2022 10:21 AM EDT Essential hypertension PROPHYLAXIS - ADULT Routine 11/07/2021 1 2:00 AM EDT PERIODIC ORAL EVALUATION - ESTABLISHED PATIENT Routine 11/07/2021 12:00 AM EDT from Last 3 Months or Most Recently Relevant to Health Maintenance Results * (ABNORMAL) CBC auto differential (12/16/2024 10:12 AM EDT) White Blood Count 7.5 4.8 - 10.8 X10*3/uL [facility] Red Blood Count 5.67(H) 4.20 - 5.50 X10*6/uL [facility] Hemoglobin 13.1 12.0 - 16.0 g/dl [facility] Hematocrit 40.6 37.0 - 47.0 % [facility] Mean Corpuscular Volume 71.6(L) 80.0 - 98.0 fL [facility] Mean Corpuscular Hemoglobin 23.1(L) 27.0 - 33.0 pg [facility] Mean Corpuscular HGB Conc 32.3 31.0 - 35.0 g/dl [facility] Red Cell Distribution Width 15.8 11.0 - 16.0 % [facility] Platelet Count 335 160 - 400 X10*3/uL [facility] Mean Platelet Volume 11.1 9.4 - 12.3 fL [facility] Neutrophils Percent Auto 56.1 45 - 73 % [facility] Imm Gran Pct Auto 0.3 0.0 - 0.4 % [facility] Lymphocytes Percent Auto 36.2 20 - 40 % [facility] Monocytes Percent Auto 6.7 2 - 11 % [facility] Eosinophils Percent Auto 0.3 0 - 4 % [facility] Basophils Percent Auto 0.4 0 - 2 % [facility] NRBC Pct Auto 0.0 0.0 - 0.2 /100WBC [facility] Neutrophils Absolute Auto 4.2 2.0 - 8.3 x10*3/uL [facility] Imm Gran Abs Auto 0.02 0.00 - 0.03 X10*3/uL [facility] Lymphocytes Absolute Auto 2.7 1.2 - 4.9 X10*3/uL [facility] Monocytes Absolute Auto 0.5 0.1 - 1.2 X10*3/uL [facility] Eosinophils Absolute Auto 0.0 0.0 - 0.4 X10*3/uL [facility] Basophils Absolute Auto 0.0 0.0 - 0.2 X10*3/uL [facility] NRBC Abs Auto 0.000 0.0 - 0.012 X10*3/uL [facility] 12/16/2024 10:1 2 AM EDT 12/16/2024 11:20 AM EDT us Generic External Data Provider LAB BLOOD ORDERAB LES Final Result [facility] [address] [place] [phone] * Hemoglobin A1c (12/16/2024 10:12 AM EDT) Hemoglobin A1c 6.0 <6.0 % [facility] Comment:Hemoglobin A1C Refer ence Range Adults: 4.8 - 6.0 % Non diabetic: < 6.0 % Goal: < 7.0 %Additional Action Suggested: > 8.0 %Note: Hemoglobin A1c results are invalid for patients with abnormal amounts of HbF. Blood transfusions may impact the HbA1c concentration in the patient sample. Estimated Average Glucose 126 mg/dL [facility] Comment:eAG = Estimated ave rage glucose which is %A1C expressed asaverage glucose, using the formula of the Z8A-UuzqxsrPofcjzw Glucose study (ADAG), Diabetes Care, Vol.31,#8,Nov. 2007 Blood Venous blood specimen / Unknown 12/16/2024 10:12 AM EDT 12/16/2024 11:20 AM EDT Ana Maria Mcclellan LAB BLOOD ORDERABLES Final R esult Performing Organization Address [facility] Co de Phone Number [facility] [address] [place] [phone] * (ABNORMAL) Lipid Panel, Standard (12/03/2023 11:46 AM EDT) Triglycerides 191(H) <150 mg/dL [facility] Comment:Desirable Triglyceri de: less than 150 mg/dLBorderline High Triglyceride 150-199 mg/dLHigh Triglyceride: 200-499 mg/dLVery High Triglyceride: greater than or equal to 5OO mg/dL Cholesterol 196 <200 mg/dL [facility] Comment:Desirable Cholestero l: less than 200 mg/dLBorderline High Cholesterol: 200-239 mg/dLHigh Cholesterol: greater than 239 mg/dL LDL Cholesterol Calculated 111(H) <100 mg/dL [facility] Comment:Desirable LDL: less than 100 mg/dLNear Optimal/Above Optimal LDL: 110- 129 mg/dLBorderline High LDL: 130-159 mg/dLHigh LDL: 160-189 mg/dLVery High LDL: greater than or equal to 190 mg/dL HDL Cholesterol 47 >40 mg/dL [facility] Comment:Desirable HDL: great er than 40 mg/dL Note: This HDL assay may give artificially low results in patients with liver disease. Blood Venous blood specimen / Unknown 12/03/2023 11:46 AM EDT 12/03/2023 1:05 PM EDT Ana Maria Mcclellan DO LAB BLOOD ORDERABLES Final R esult Performing Organization Address City/[facility]/ZIP Co de Phone Number [facility] [address] [place] [phone] * Hepatitis C Antibody with Reflex to HCV RNA,PCR w/Reflex to Genotype, LiPA (09/21/2022 10:21 AM EDT) Hepatitis C Antibody NON-REACT ANGY NON-REACT ANGY [facility] [place] [facility] Index 0.05 <1.00 [facility] [place] [facility] Comment: HCV antibody was non-reactive. There is no laboratory evidence of HCV infection. In most cases, no further action is required. However, if recent HCV exposure is suspected, a test for HCV RNA (test code 83568) is suggested. For additional information, please refer to http://education.[employer]/faq/YLJ488 (This link is being provided for informational/ educational purposes only.) 09/21/2022 10:2 1 AM EDT 09/21/2022 10:22 AM EDT [facility] - 09/22/2022 9:02 PM EDT FASTING:UNKNOWN PATIENT UNABLE TO VOID; ADVISED TO RETURN FOR COLLECTION. FASTING: UNKNOWN us Ana Maria Mcclellan DO LAB BLOOD ORDERABLES Final R esult [facility] [address], [place] [address] [employer] [place] [facility] [address] [place] [address] from Last 3 Months or Most Recently Relevant to Health Maintenance [place] [place] [address] STANDARD [place] [facility] [facility] (HMO D-SNP) [facility] Care Teams Router Setter Relationship Specialty Start Date End Date Ana Maria Mcclellan DO [address] [place] [phone] PCP - General Family Medicine 11/29/21
--- OUTSIDE RECORDS SUMMARY | 2024-12-16 11:48 | XMS_ITS | Encounter Summary ---
Author Organization [employer] Address [address] [facility] [address] [place] [address] Care Team Providers Care Demonstrator Sales Name Role Phone Eleuterio Ana Maria Primary Care Provider [phone] Encounter Details Date Type Department Care Team (Latest Contact Info) Description 12/16/2024 Travel Social History Tobacco Use Types Packs/Day Years [...] with others, in a hotel, in a senior living, living outside on the street, on a [...] AM EDT documented as of this encounter Functional Status * Over the [...] 10:12 AM ENRIQUETAT Nona Carson [place] * Feeling bad about yourself - or that you are a failure or have let yourself or your family down Answer Date of Assessment Author Not at all 12/16/2024 10:12 AM Nona Triplett [place] * Trouble concentrating on things, such [...] awful might happen 1 12/16/2024 10:13 AM EDT Nona Carson MA SEAN-7 Total Score 15 12/16/2024 10:13 AM EDT Nona Carson MA documented as of this encounter Plan of Treatment Not on file documented as of this encounter Goals Goal Patient Goal Type Associated Problems Recent Progress Patient-Stated? Author Blood Pressure < 140/90 Blood Pressure 162/82( 025 9:46 AM EDT) No Caesar Fuller, PharmD documented as of this encounter Visit Diagnoses Not on filedocumented in this encounter Additional Health Concerns Assessment Noted Time PHQ-9 Depression Total Score: 7 12/17/19 25 10:12 AM EDT documented as of this encounter Care Teams Demonstrator Sales Relationship Specialty Start Date End Date Ana Maria Mcclellan DO [address] [place] [address] PCP - General Family Medicine 11/29/21 documented as of this encounter
--- OUTSIDE RECORDS SUMMARY | 2024-12-16 11:48 | XMS_ITS | Encounter Summary ---
Author Organization [facility] Address [address] [facility] [address] [place] [address] Care Team Providers Care Leaf Conditioner Name Role Phone Leah Mcclellanfer Primary Care Provider + [phone] Reason for Referral * Consultation (Routine) - Authorized Specialty Diagnoses / Procedures Referred By Contac t Referred To Contact Pharmacy Diagnoses Essential hypertension Fariba Dominguez MD [address] [place] [address] Phone: tel: fax: Referral ID Status Reason Start Date Expiration Date Visits Requested Visits Authorized [id number] Authorized Continuity of Care 08/12/2024 08/12/2025 6 6 Encounter Details Date Type Department Care Team (Late st Contact Info) Description 08/12/2024 Orders Only [facility] [address] [place], [place] [phone] Fariba Dominguez MD [address] [place], [place] [phone] Essential hypertension (Primary Dx) Social History Tobacco Use Types Packs/Day Years [...] Answer Date Recorded Patient Health Questionnaire-9 Score 5 03/22/2023 Patient Health Questionnaire-9 Score 5 03/22/2023 Last PHQ-9: Questionnaire Data Not on file 1 05/23/2022 Housing Stability Answer Date Recorded What is your housing situation today? I have ken lerma 01/26/[address] you li ve. Do you have problems with any of the following? None of the above 01/26/2023 Food Insecurity Answer Date Recorded Within the past 12 months, y ou worried that your food would run out before you got money to buy more: Never True 01/26/2023 Within the past 12 months,th e food you bought just didn't last and you didn't have enough money to get more: Never True Transportation Answer Date Recorded In the past 12 months, has l ack of transportation kept you from medical appts, meetings, work or from getting things needed for daily living? Yes, it has kept me from non-medical meetings, work, or getting things that I need 07/26/2023 Utilities Answer Date Recorded In the past 12 months, has t he electric, gas, oil or water company threatened to shut off services in your home? No 01/26/2023 Depression Answer Date Recorded Patient Health Questionnaire-2 Score 2 03/22/2023 Internet Access Answer Date Recorded Internet Access Q1 Yes 07/11/2024 Internet Access Q2 Not on file 07/11/2024 Comments Unknown Sex and Gender Information Value Date Recorded Sex Assigned at Female 02/06/2022 10:22 AM EDT Legal Sex Female 10:22 AM EDT Gender Identity Female 02/06/2022 10:22 AM EDT Sexual Orientation Choose not to disclose 2021 10:22 AM EDT documented as of this encounter Plan of Treatment Scheduled Referrals Name Type Priority Associated Diagnoses Orde r Schedule Referral to Pharmacy MTM Outpatient Referral Routine Essential hypertension Ordered: 08/12/2024 documented as of this encounter Goals Goal Patient Goal Type Associated Problems Recent Progress Patient-Stated? Author Blood Pressure < 140/90 Blood Pressure 162/82( 025 9:46 AM EDT) No Caesar Fuller, PharmD documented as of this encounter Procedures Procedure Name Priority Date/Time Associated Diagnosis Comments CBC WITH AUTO DIFFERENTIAL Routine 12/16/2024 10:12 AM EDT Essential hypertension documented in this encounter Results * (ABNORMAL) CBC auto differential (12/16/2024 10:12 AM EDT) White Blood Count 7.5 4.8 - 10.8 X10*3/uL [facility] Red Blood Count 5.67(H) 4.20 - 5.50 X10*6/uL [facility] Hemoglobin 13.1 12.0 - 16.0 g/dl [facility] Hematocrit 40.6 37.0 - 47.0 % [facility] Mean Corpuscular Volume 71.6(L) 80.0 - 98.0 fL [facility] Mean Corpuscular Hemoglobin 23.1(L) 27.0 - 33.0 pg [facility] Mean Corpuscular HGB Conc 32.3 31.0 - 35.0 g/dl [facility] Red Cell Distribution Width 15.8 11.0 - 16.0 % [facility] Platelet Count 335 160 - 400 X10*3/uL [facility] Mean Platelet Volume 11.1 9.4 - 12.3 fL [facility] Neutrophils Percent Auto 56.1 45 - 73 % [facility] Imm Gran Pct Auto 0.3 0.0 - 0.4 % [facility] Lymphocytes Percent Auto 36.2 20 - 40 % [facility] Monocytes Percent Auto 6.7 2 - 11 % [facility] Eosinophils Percent Auto 0.3 0 - 4 % [facility] Basophils Percent Auto 0.4 0 - 2 % [facility] NRBC Pct Auto 0.0 0.0 - 0.2 /100WBC [facility] Neutrophils Absolute Auto 4.2 2.0 - 8.3 x10*3/uL [facility] Imm Gran Abs Auto 0.02 0.00 - 0.03 X10*3/uL [facility] Lymphocytes Absolute Auto 2.7 1.2 - 4.9 X10*3/uL [facility] Monocytes Absolute Auto 0.5 0.1 - 1.2 X10*3/uL [facility] Eosinophils Absolute Auto 0.0 0.0 - 0.4 X10*3/uL [facility] Basophils Absolute Auto 0.0 0.0 - 0.2 X10*3/uL [facility] NRBC Abs Auto 0.000 0.0 - 0.012 X10*3/uL [facility] 12/16/2024 10:1 2 AM EDT 12/16/2024 11:20 AM EDT us Generic External Data Provider LAB BLOOD ORDERAB LES Final Result [facility] [address] [place] [address] [phone] documented in this encounter Visit Diagnoses Diagnosis Essential hypertension- Primary Unspecified essential hypertension documented in this encounter Additional Health Concerns Assessment Noted Time PHQ-9 Depression Total Score: 5 03/22/20 23 11:13 AM EST documented as of this encounter Care Teams Leaf Conditioner Relationship Specialty Start Date End Date Ana Maria Mcclellan DO [address] [place] [address] PCP - General Family Medicine 11/29/21 documented as of this encounter
--- OUTSIDE RECORDS SUMMARY | 2024-12-16 11:48 | XMS_ITS | Encounter Summary ---
Author Organization [employer] [facility] Address [address] [facility] [address] [place] [address] Care Team Providers Care Vendor Specialist Name Role Phone Ana Maria Mcclellan DO Primary Care Provider [phone] Encounter Details Date Type Department Care Team (Latest Contact Info) Description 11/07/2021 Abstract [facility] CONVERSIONS Dental, Provider, DDS Social History Tobacco Use Types Packs/Day Years [...] on file documented as of this encounter Visit Diagnoses Not on filedocumented in this encounter Care Teams Vendor Specialist Relationship Specialty Start Date End Date Ana Maria Mcclellan DO [address] [place] [phone] PCP - General Family Medicine 11/29/21 documented as of this encounter
--- OUTSIDE RECORDS SUMMARY | 2024-12-16 11:48 | XMS_ITS | Encounter Summary ---
Author Organization [employer] [facility] Address [address] [facility] [address] [place] [address] Care Team Providers Care Sheet Metal Layout Worker Name Role Phone Ana Maria Mcclellan DO Primary Care Provider [phone] Encounter Details Date Type Department Care Team (Latest Contact Info) Description 04/01/2019 Abstract C CONVERSIONS Dental, Provider, DDS Social History Tobacco [...] on filedocumented in this encounter Care Teams Sheet Metal Layout Worker Relationship Specialty Start Date End Date Ana Maria Mcclellan DO [address] [place] [id number] PCP - General Family Medicine 11/29/21 documented as of this encounter
--- OUTSIDE RECORDS SUMMARY | 2024-12-16 11:48 | XMS_ITS | Encounter Summary ---
Author Organization [facility] Address [address] [facility] [address] [place] [address] Care Team Providers Care Jackhammer Operator Name Role Phone Ana Maria Mcclellan DO Primary Care Provider [phone] Encounter Details Date Type Department Care Team (Latest Contact Info) Description 10/01/2020 Abstract [facility] CONVERSIONS Dental, Provider, DDS Social [...] on filedocumented in this encounter Care Teams Jackhammer Operator Relationship Specialty Start Date End Date Ana Maria Mcclellan DO [address] [place] [phone] PCP - General Family Medicine 11/29/21 documented as of this encounter
--- OUTSIDE RECORDS SUMMARY | 2024-12-16 11:48 | XMS_ITS | Clinical Summary ---
Author Organization [facility] Address [address] [place] [address] Phone Care Team Providers Care Script Reader Name Role Phone Ana Maria Mcclellan DO [...] [place] Medicaid [place] Care Teams Script Reader Relationship Specialty Start Date End Date Ana Maria Mcclellan DO [address] [place] [address] PCP - General Family Medicine 10/03/22
[2024-12-16 12:03] LABS: Free T4 (Free Thyroxine) 1.44 ng/dL (0.71-1.85)
[2024-12-16 12:08] LABS: Alanine Aminotransferase 20 U/L (0-31); Albumin Level 4.5 g/dL (3.5-5.0); Alkaline Phosphatase 120 U/L (39-117); Anion Gap 13 (12-20); Aspartate Amino Transferase 26 U/L (5-31); Blood Urea Nitrogen 15 mg/dL (9-16); Calcium 9.8 mg/dL (8.4-10.2); Carbon Dioxide 27 mmol/L (22-29); Chloride 107 mmol/L (96-108); Cholesterol 215 mg/dL (<200); Estimated Glomerular Filt Rate > 60; HDL Cholesterol 53 mg/dL (>40); Potassium 4.0 mmol/L (3.3-5.1); Sodium 143 mmol/L (135-145); Total Protein 8.0 g/dL (6.5-8.0); Triglycerides 98 mg/dL (<150)
[2024-12-16 12:10] LABS: Thyroid Stimulating Hormone < 0.01 uIU/mL (0.32-4.0)
[2024-12-16 12:16] LABS: Prealbumin 25.0 mg/dL (20-40)
[2024-12-16 12:22] LABS: HBS Num1 0.00 mIU/mL (0-7.99); HBc Num1 0.05 S/CO (0.00-0.79); HBsAGNum1 0.35 S/CO (0.00-0.99); HIV Num 1 0.04 S/CO (0.00-0.99); Hepatitis B Surface Antigen Negative (Negative); ~HepC Num1 0.10 S/CO (0.00-0.79); ~Hepatitis B Surface Antibody NONREACTIVE (Nonreactive); ~Hepatitis C Antibody Nonreactive (Nonreactive)
[2024-12-19 17:53] LABS: TS Negative Control Passed; TS Panel A 0; TS Panel B 0; TS Positive Control Passed; TSpotTB Negative (Negative)
== END 2024-12-16 10:04 | disposition home or self-care (01) ==
LOC: HO.HHCL 10:03
PROVIDERS: Internal Medicine; PCP Family Medicine; Visit Provider Family Medicine
DX: Z00.00 Encounter for general adult medical examination without abnormal findings (principal); Z11.1 Encounter for screening for respiratory tuberculosis; Z11.59 Encounter for screening for other viral diseases; Z11.4 Encounter for screening for human immunodeficiency virus [HIV]; C50.912 Malignant neoplasm of unspecified site of left female breast; I10 Essential (primary) hypertension; E78.49 Other hyperlipidemia; M25.552 Pain in left hip; G89.29 Other chronic pain; M25.562 Pain in left knee; M54.42 Lumbago with sciatica, left side; R79.89 Other specified abnormal findings of blood chemistry; R63.4 Abnormal weight loss; K59.09 Other constipation; Z71.3 Dietary counseling and surveillance; Z71.82 Exercise counseling
CPT/HCPCS: 36415; 80053; 80061; 82248; 82306; 83036; 84134; 84439; 84443; 85025; 85652; 86140; 86481; 86704; 86706; 86803; 87340; 87389

== ENCOUNTER 2024-12-24 09:56 | Outpatient (REF) | payer OTHER, SELFPAY ==
--- NOTE | ~2024-12-24 | XR_ITS ---
Examination: 60 lumbar spine x-ray TECHNIQUE: AP, lateral, lateral spot, and bilateral oblique views of the lumbar spine were obtained using x-ray Comparison 12/14/2023 INDICATION: Low back pain that is worsening and radiates to the left leg FINDINGS: There is moderate atherosclerotic calcification in the aorta. Sclerosis and degenerative cystic changes present in the lower half of the pubic symphysis joint. There are 5 nonrib-bearing lumbar segments. Oblique views demonstrate no pars interarticularis defects. T12-L1: There is mild to moderate disc space narrowing and minimal retrolisthesis, unchanged L1-L2: There is mild to moderate disc space narrowing with minimal vacuum phenomenon and mild grade 1 retrolisthesis, unchanged L2-L3: There is mild disc space narrowing, unchanged L3-L4: There is small anterior osteophyte. Unchanged L4-L5: There is grade 1 anterolisthesis and facet sclerosis, unchanged. L5-S1: There is grade 1 versus grade 2 anterolisthesis that is stable to slightly increased. There is facet sclerosis. XR/XR lumbar spine 4V min IMPRESSION: Degenerative disc disease and facet osteoarthritis is stable. L5-S1 grade 1 vs grade 2 anterolisthesis is stable to slightly increased. Electronically signed by: Mickey Mobley MD 12/24/2024 10:31 AM EDT
--- OUTSIDE RECORDS SUMMARY | 2024-12-24 11:54 | XMS_ITS | Encounter Summary ---
Author Organization [employer] [facility] Address [address] [facility] [address] [place] [address] Care Team Providers Care Strings Teacher Name Role Phone Ana Maria Mcclellan DO Primary Care Provider [phone] Encounter Details Date Type Department Care Team [...] on filedocumented in this encounter Care Teams Strings Teacher Relationship Specialty Start Date End Date Ana Maria Mcclellan DO [address] [place] [phone] PCP - General Family Medicine 11/29/21 documented as of this encounter
--- OUTSIDE RECORDS SUMMARY | 2024-12-24 11:54 | XMS_ITS | Encounter Summary ---
Author Organization [employer] [facility] Address [address] [facility] [address] [place] [address] Care Team Providers Care Airplane Pilot Photogrammetry Name Role Phone Ana Maria Mcclellan DO Primary Care Provider [phone] Encounter Details Date Type Department Care Team [...] on filedocumented in this encounter Care Teams Airplane Pilot Photogrammetry Relationship Specialty Start Date End Date Ana Maria Mcclellan DO [address] [place] [phone] PCP - General Family Medicine 11/29/21 documented as of this encounter
--- OUTSIDE RECORDS SUMMARY | 2024-12-24 11:54 | XMS_ITS | Encounter Summary ---
Author Organization [employer] [facility] Address [address] [facility] [address] [place] [address] Care Team Providers Care Railroad Supervisor Of Engines Name Role Phone Ana Maria Mcclellan DO Primary Care Provider [phone] Encounter Details Date Type Department Care Team [...] on filedocumented in this encounter Care Teams Railroad Supervisor Of Engines Relationship Specialty Start Date End Date Ana Maria Mcclellan DO [address] [place] [address] PCP - General Family Medicine 11/29/21 documented as of this encounter
--- OUTSIDE RECORDS SUMMARY | 2024-12-24 11:54 | XMS_ITS | Encounter Summary ---
Author Organization [employer] [facility] Address [address] [facility] [address] [place] [address] Care Team Providers Care Production Ski Repairer Name Role Phone Leah Mcclellanfer Primary Care Provider + [phone] Reason for Referral * Consultation (Routine) - Authorized Specialty Diagnoses / Procedures Referred By Contac t Referred To Contact Pharmacy Diagnoses Essential hypertension Fariba Dominguez MD [address] [place] [address] Phone: tel: fax: Referral ID Status Reason Start Date Expiration Date Visits Requested Visits Authorized [id number] Authorized Continuity of Care 08/12/2024 08/12/2025 6 6 Encounter Details Date Type Department Care Team (Late st Contact Info) Description 08/12/2024 Orders Only [facility] MEDIC[facility] [address] [place], [place] [phone] Fariba Dominguez MD [address] [place], [place] [phone] Essential hypertension (Primary Dx) Social History Tobacco [...] Routine 12/16/2024 10:12 AM EDT Essential hypertension COMPREHENSIVE METABOLIC PANEL Routine 12/16/2024 10:12 AM EDT Essential hypertension documented in this encounter Results * (ABNORMAL) Comprehensive Metabolic Panel (12/16/2024 10:12 AM EDT) Sodium 143 135 - 145 mmol/L [facility] Potassium 4.0 3.3 - 5.1 mmol/L [facility] Chloride 107 96 - 108 mmol/L [facility] Carbon Dioxide 27 22 - 29 mmol/L [facility] Anion Gap 13 12 - 20 [facility] Urea Nitrogen (BUN) 15 9 - 16 mg/dL [facility] Creatinine, Serum 0.85 0.5 - 1.4 mg/dL [facility] Estimated Glomerular Filt Rate >60 [facility] Comment:Chronic Kidney Disea se: Estimated GFR < 60 mL/min/[id number] Kidney Disease: Estimated GFR < 15 mL/min/1.73m2 Glucose 117(H) 60 - 115 mg/dL [facility] Calcium 9.8 8.4 - 10.2 mg/dL [facility] Bilirubin, Total 0.5 0.0 - 1.0 mg/dL [facility] Aspartate Amino Transferase 26 5 - 31 U/L [facility] Alanine Aminotransferase 20 0 - 31 U/L [facility] Total Protein 8.0 6.5 - 8.0 g/dL [facility] Albumin Level 4.5 3.5 - 5.0 g/dL [facility] Alkaline Phosphatase 120(H) 39 - 117 U/L [facility] 12/16/2024 10:1 2 AM EDT 12/16/2024 11:23 AM EDT us Generic External Data Provider LAB BLOOD ORDERAB LES Final Result [facility] [address] [place] [address] [phone] * (ABNORMAL) CBC auto differential (12/16/2024 10:12 [...] LES Final Result [facility] [address] [place] [address] [phone] documented in this encounter Visit Diagnoses Diagnosis Essential hypertension- Primary Unspecified essential hypertension documented in this encounter Additional Health Concerns Assessment Noted Time PHQ-9 Depression Total Score: 5 03/22/20 23 11:13 AM EST documented as of this encounter Care Teams Production Ski Repairer Relationship Specialty Start Date End Date Ana Maria Mcclellan DO [address] [place] [address] PCP - General Family Medicine 11/29/21 documented as of this encounter
--- OUTSIDE RECORDS SUMMARY | 2024-12-24 11:55 | XMS_ITS | Clinical Summary ---
Author Organization [employer] Address [address] [facility] [address] [place] [address] Care Team Providers Care Extraction Supervisor Name Role Phone Eleuterio Ana Maria Primary Care Provider [phone] Allergies No known active allergies Medications * This document contains information received from the source organization and may not represent a complete record from that organization. spironolactone-hy droCHLOROthiazide (Aldactazide) 25-25 MG tablet Take 1 tablet by mouth. 023 Active lidocaine (Lidoderm) 5 % patch Apply 1 patch topically Once per day. Remove & discard patch within 12 hours or as directed by . 30 patch 5 024 Active Blood Pressure [...] per day. 30 tablet 025 2025 Active Diclofenac Sodium 1 % gel Apply [...] 2 times daily. 60 tablet 2025 Active docusate sodium (Colace) 100 MG capsule Take 1 capsule (100 mg) by mouth 2 times daily. 60 capsule 2025 Active polycarbophil (Fibercon) 625 MG tablet Take 1 tablet (625 mg) by mouth 2 times daily. 60 tablet 11 2025 Active polyethylene glycol, PEG, 3350 (MiraLax) 17 GM/SCOOP powder Take 17 g by mouth if needed each day (constipation). 527 g 2 2025 Active baclofen (Lioresal) 10 MG tablet Take 0.5 tablets (5 mg) by mouth if needed in the morning, at noon, and at bedtime for muscle spasms. 40 tablet 3 2025 Active lisinopril 40 MG tabletIndications :Essential hypertension TAKE 1 TABLET BY MOUTH EVERY MORNING 90 tablet 3 2024 Discontinued(R eorder (will not trigger notification to Pharmacy)) amLODIPine (Norvasc) 10 MG tabletIndications :Essential hypertension TAKE 1 TABLET BY MOUTH EVERY MORNING 30 tablet 11 2024 Discontinued(R eorder (will [...] AND IN THE EVENING 180 tablet 1 024 2024 Discontinued(R eorder (will not trigger notification to Pharmacy)) pravastatin (Pravachol) 40 MG tabletIndications :Hyperlipidemia, unspecified hyperlipidemia type TAKE 1 TABLET BY MOUTH EVERY EVENING 90 tablet 1 024 2024 Discontinued metoprolol succinate XL (Toprol XL) 100 MG 24 hr tablet Take 1 tablet (100 mg) by mouth Once per day. Do not crush or chew. 30 tablet 11 024 2024 Discontinued(R eorder (will not trigger notification to Pharmacy)) baclofen (Lioresal) 10 MG tablet Take 0.5 tablets (5 mg) by mouth if needed in the morning, at noon, and at bedtime for muscle spasms. 40 tablet 3 024 2024 Discontinued(R eorder (will not trigger notification to Pharmacy)) acetaminophen (Tylenol 8 Hour) 650 MG ER tablet TAKE 1 TABLET BY MOUTH EVERY 6 HOURS NEEDED FOR MILD PAIN. DO NOT BREAK, CRUSH, DISSOLVE OR CHEW 60 tablet 2 024 2024 Discontinued(R eorder (will not trigger notification to Pharmacy)) Diclofenac Sodium 1 % gel Apply 2 g topically if needed in the morning, at noon, in the evening, and at bedtime (pain). 150 g 5 024 2024 Discontinued(R eorder (will not trigger notification to Pharmacy)) methylPREDNISolon e (Medrol Dospak) 4 MG tablets Follow schedule on package instructions 21 tablet 025 2024 Active Problems Problem Noted Date Diagnosed Date [...] Assessment & Plan (08/03/2023 1:52 PM EDT): BR/DC+, HER-2 neg, s/p lumpectomy FEB 2018, s/p [...] chart -s/p optho eval JAN 2023 at [facility] for annual f/u -f/u with renal [...] Description 12/16/2024 9:00 AM EDT Office Visit [facility] [address] [place] [phone] Ana Maria Mcclellan DO Essential hypertension (Primary Dx); Other hyperlipidemia; Intraductal carcinoma of left breast; Chronic left hip pain; Chronic pain of left knee; Chronic bilateral low back pain with left-sided sciatica; Low TSH level; Unintentional weight loss; Chronic constipation; Healthcare maintenance; Dietary counseling; Exercise counseling; Hyperlipidemia, unspecified hyperlipidemia type; Osteopenia, unspecified location 12/16/2024 Travel 12/05/2024 Telephone [facility] [address] [place] [phone] Ana Maria Mcclellan DO Chart Prep 12/05/2024 Patient Outreach [facility] [address] [place] [address] Ana Maria Mcclellan DO Pre-visit Planning (SDOH [...] with others, in a hotel, in a half-way, living outside on the street, on a [...] 2024 , 02/06/2022, 02/06/2022, Additional history exists Alcohol/Substance Use Screening 12/16/2025 12/16/2024 Depression Screening 12/16/2025 12/16/2024, 12/17/19 25 Diabetes: Hemoglobin A1C 12/16/2025 025, 12/03/2023, 09/21/2022 SDOH Screening 12/16/2025 12/16/2024 Tobacco Screening 12/16/2025 12/16/2024 DTaP/Tdap/Td Vaccines (2 - Td or Tdap) 12/15/2026 12/15/2016 Lipid Panel 12/16/2029 12/16/2024, 11/08, 09/21/2022, Additional history exists Pneumococcal Vaccine: 50+ Years Completed 02/06/2022, 12/15/2016 Hepatitis C Screening Completed 12/16/2024 , 09/21/2022, 10/19/2021 HIB Vaccines Aged Out No longer eligi [...] 9:46 AM EDT) No Caesar Fuller, PharmD Procedures Procedure Name Priority Date/Time Associated Diagnosis Comments XR LUMBAR SPINE COMPLETE 4+ VIEWS Routine 12/24/2024 10:22 AM EDT COMPREHENSIVE METABOLIC PANEL Routine 12/16/2024 10:12 AM EDT Essential hypertension CBC WITH AUTO DIFFERENTIAL Routine 12/16/2024 10:12 AM EDT Essential hypertension HEPATITIS B SURFACE ANTIBODY, QUALITATIVE Routine 12/16/2024 10:12 AM EDT Essential hypertension Other hyperlipidemia Intraductal carcinoma of left breast Chronic left hip pain Chronic pain of left knee Chronic bilateral low back pain with left-sided sciatica Low TSH level Unintentional weight loss Chronic constipation Healthcare maintenance Dietary counseling Exercise counseling HEPATITIS B SURFACE ANTIGEN, EIA Routine 12/16/2024 10:12 AM EDT Essential hypertension Other hyperlipidemia Intraductal carcinoma of left breast Chronic left hip pain Chronic pain of left knee Chronic bilateral low back pain with left-sided sciatica Low TSH level Unintentional weight loss Chronic constipation Healthcare maintenance Dietary counseling Exercise counseling HEPATITIS B CORE AB TOTAL Routine 12/16/2024 10:12 AM EDT Essential hypertension Other hyperlipidemia Intraductal carcinoma of left breast Chronic left hip pain Chronic pain of left knee Chronic bilateral low back pain with left-sided sciatica Low TSH level Unintentional weight loss Chronic constipation Healthcare maintenance Dietary counseling Exercise counseling HEPATITIS C AB W/REFL TO HCV RNA, QN, PCR Routine 12/16/2024 10:12 AM EDT Essential hypertension Other hyperlipidemia Intraductal carcinoma of left breast Chronic left hip pain Chronic pain of left knee Chronic bilateral low back pain with left-sided sciatica Low TSH level Unintentional weight loss Chronic constipation Healthcare maintenance Dietary counseling Exercise counseling HEPATIC FUNCTION PANEL Routine 12/16/2024 10:12 AM EDT Essential hypertension Other hyperlipidemia Intraductal carcinoma of left breast Chronic left hip pain Chronic pain of left knee Chronic bilateral low back pain with left-sided sciatica Low TSH level Unintentional weight loss Chronic constipation Healthcare maintenance Dietary counseling Exercise counseling TSH Routine 12/16/2024 10:12 AM EDT Essential hypertension Other hyperlipidemia Intraductal carcinoma of left breast Chronic left hip pain Chronic pain of left knee Chronic bilateral low back pain with left-sided sciatica Low TSH level Unintentional weight loss Chronic constipation Healthcare maintenance Dietary counseling Exercise counseling T4, FREE Routine 12/16/2024 10:12 AM EDT Essential hypertension Other hyperlipidemia Intraductal carcinoma of left breast Chronic left hip pain Chronic pain of left knee Chronic bilateral low back pain with left-sided sciatica Low TSH level Unintentional weight loss Chronic constipation Healthcare maintenance Dietary counseling Exercise counseling PREALBUMIN Routine 12/16/2024 10:12 AM EDT Essential hypertension Other hyperlipidemia Intraductal carcinoma of left breast Chronic left hip pain Chronic pain of left knee Chronic bilateral low back pain with left-sided sciatica Low TSH level Unintentional weight loss Chronic constipation Healthcare maintenance Dietary counseling Exercise counseling HIV 1/2 ANTIGEN/ANTIBODY, FOURTH GENERATION W/RFL Routine 12/16/2024 10:12 AM EDT Essential hypertension Other hyperlipidemia Intraductal carcinoma of left breast Chronic left hip pain Chronic pain of left knee Chronic bilateral low back pain with left-sided sciatica Low TSH level Unintentional weight loss Chronic constipation Healthcare maintenance Dietary counseling Exercise counseling C-REACTIVE PROTEIN Routine 12/16/2024 10 :12 AM EDT Essential hypertension Other hyperlipidemia Intraductal carcinoma of left breast Chronic left hip pain Chronic pain of left knee Chronic bilateral low back pain with left-sided sciatica Low TSH level Unintentional weight loss Chronic constipation Healthcare maintenance Dietary counseling Exercise counseling T-SPOT(R).TB Routine 12/16/2024 10:12 AM EDT Essential hypertension Other hyperlipidemia Intraductal carcinoma of left breast Chronic left hip pain Chronic pain of left knee Chronic bilateral low back pain with left-sided sciatica Low TSH level Unintentional weight loss Chronic constipation Healthcare maintenance Dietary counseling Exercise counseling SED RATE BY MODIFIED WESTERGREN Routine 12/16/2024 10:12 AM EDT Essential hypertension Other hyperlipidemia Intraductal carcinoma of left breast Chronic left hip pain Chronic pain of left knee Chronic bilateral low back pain with left-sided sciatica Low TSH level Unintentional weight loss Chronic constipation Healthcare maintenance Dietary counseling Exercise counseling HEMOGLOBIN A1C Routine 12/16/2024 10:12 AM EDT Essential hypertension Other hyperlipidemia Intraductal carcinoma of left breast Chronic left hip pain Chronic pain of left knee Chronic bilateral low back pain with left-sided sciatica Low TSH level Unintentional weight loss Chronic constipation Healthcare maintenance Dietary counseling Exercise counseling LIPID PANEL, STANDARD Routine 12/16/2024 10:12 AM EDT Essential hypertension Other hyperlipidemia Intraductal carcinoma of left breast Chronic left hip pain Chronic pain of left knee Chronic bilateral low back pain with left-sided sciatica Low TSH level Unintentional weight loss Chronic constipation Healthcare maintenance Dietary counseling Exercise counseling VITAMIN D,25-OH,TOTAL,IA Routine 12/16/2024 10:12 AM EDT Essential hypertension Other hyperlipidemia Intraductal carcinoma of left breast Chronic left hip pain Chronic pain of left knee Chronic bilateral low back pain with left-sided sciatica Low TSH level Unintentional weight loss Chronic constipation Healthcare maintenance Dietary counseling Exercise counseling PROPHYLAXIS - ADULT Routine 11/07/2021 1 2:00 AM EDT PERIODIC ORAL EVALUATION - ESTABLISHED PATIENT Routine 11/07/2021 12:00 AM EDT from Last 3 Months or Most Recently Relevant to Health Maintenance Results * XR Lumbar Spine Complete 4+ Views (12/24/2024 10:22 AM EDT) Anatomical Region Laterality Modality Spine, L-spine Radiographic Shira ging 12/24/2024 10:2 2 AM EDT Narrative 12/24/2024 10:34 [place] [address] XRay Report Signed Patient: Nataly Atkinson MR#: [id number] : 1945 Acct:[id number] Age/Sex: 79 / F ADM Date: 12/24/24 Loc: .[facility] Attending Dr: Ana Maria Mcclellan DO Ordering Physician: Ana Maria Mcclellan DO Date of Service: 12/24/24 Procedure(s): XR lumbar spine 4V min Accession Number(s): [id number] cc: Ana Maria Mcclellan DO Reason for Exam: worsening LBP radiating to L leg Examination: 60 lumbar spine x-ray TECHNIQUE: AP, lateral, lateral spot, and bilateral oblique views of the lumbar spine were obtained using x-ray Comparison 12/14/2023 INDICATION: Low back pain that is worsening and radiates to the left leg FINDINGS: There is moderate atherosclerotic calcification in the aorta. Sclerosis and degenerative cystic changes present in the lower half of the pubic symphysis joint. There are 5 nonrib-bearing lumbar segments. Oblique views demonstrate no pars interarticularis defects. T12-L1: There is mild to moderate disc space narrowing and minimal retrolisthesis, unchanged L1-L2: There is mild to moderate disc space narrowing with minimal vacuum phenomenon and mild grade 1 retrolisthesis, unchanged L2-L3: There is mild disc space narrowing, unchanged L3-L4: There is small anterior osteophyte. Unchanged L4-L5: There is grade 1 anterolisthesis and facet sclerosis, unchanged. L5-S1: There is grade 1 versus grade 2 anterolisthesis that is stable to slightly increased. There is facet sclerosis. XR/XR lumbar spine 4V min IMPRESSION: Degenerative disc disease and facet osteoarthritis is stable. L5-S1 grade 1 vs grade 2 anterolisthesis is stable to slightly increased. Electronically signed by: Mickey Mobley MD 12/24/2024 10:31 AM EDT Dictated By: Mickey Mobley MD Signed By: <Electronically signed by Mickey Mobley MD in OV> 12/24/24 1031 DD/ 1022 TD/TT: 12/24/24 1024 Stereoptician: Procedure Note Donotuseinterpreter, Image - 12/24/[address] [address] XRay Report Signed Patient: Jayjay Atkinson#: [id number] : 6Acct:[id number] Age/Sex: 79 / FADM Date: 12/24/24 Loc: HO.HHCX Attending Dr: Ana Maria Mcclellan DO Ordering Physician: Ana Maria Mcclellan DO Date of Service: 12/24/24 Procedure(s): XR lumbar spine 4V min Accession Number(s): [id number] cc: Ana Maria Mcclellan DO Reason for Exam: worsening LBP radiating to L leg Examination: 60 lumbar spine x-ray TECHNIQUE: AP, lateral, lateral spot, and bilateral oblique views of the lumbar spine were obtained using x-ray Comparison 12/14/2023 INDICATION: Low back pain that is worsening and radiates to the left leg FINDINGS: There is moderate atherosclerotic calcification in the aorta. Sclerosis and degenerative cystic changes present in the lower half of the pubic symphysis joint. There are 5 nonrib-bearing lumbar segments. Oblique views demonstrate no pars interarticularis defects. T12-L1: There is mild to moderate disc space narrowing and minimal retrolisthesis, unchanged L1-L2: There is mild to moderate disc space narrowing with minimal vacuum phenomenon and mild grade 1 retrolisthesis, unchanged L2-L3: There is mild disc space narrowing, unchanged L3-L4: There is small anterior osteophyte. Unchanged L4-L5: There is grade 1 anterolisthesis and facet sclerosis, unchanged. L5-S1: There is grade 1 versus grade 2 anterolisthesis that is stable to slightly increased. There is facet sclerosis. XR/XR lumbar spine 4V min IMPRESSION: Degenerative disc disease and facet osteoarthritis is stable. L5-S1 grade 1 vs grade 2 anterolisthesis is stable to slightly increased. Electronically signed by: Mickey Mobley MD 12/24/2024 10:31 AM EDT Dictated By: Mickey Mobley MD Signed By: <Electronically signed by Mickey Mobley MD in OV> 12/24/24 1031 DD/ 1022 TD/TT: 12/24/24 1024 Stereoptician: Ana Maria Mcclellan DO IMG XR PROCEDURES Edited Res ult - Final * Vitamin D, 25-Hydroxy, Total, Immunoassay (12/16/2024 10:12 AM EDT) Vitamin D 25-OH Total 51.0 >30 ng/mL [facility] Comment: Health Based Reference Values*< 20 ng/mL [id number] ng/mL Insufficient> 30 ng/mL Sufficient*Saritha NEWMAN. N Engl J Med. 2007;357:266-280There is no well-established upper level of normal vitamin Dlevels. Some laboratories use 50 ng/mL as an upper limit ofnormal. However, toxicity is patient-dependent and may occurat any level. Careful correlation with the patient'spresentation is necessary and, if there is concern forvitamin D toxicity, treatment should be consideredirrespective of the serum level.Care must be taken in interpreting Vitamin D results fromdifferent laboratories and methodologies. Published datademonstrated that results from patients undergoinghemodialysis may show a negative bias when tested withvarious automated 25-OH vitamin D assays when compared toLC-MS/MS.When testing samples from patients whose predominant form ofVitamin D is Vitamin D2, such as patients receiving VitaminD2 supplementation, results that are subtherapeutic shouldbe confirmed with another method such as LC-MS/MS. Blood Venous blood specimen / Unknown 12/16/2024 10:12 AM EDT 12/16/2024 11:23 AM EDT us Ana Maria Mcclellan DO LAB BLOOD ORDERABLES Final R esult [facility] [address] [place] [phone] * T-SPOT??.TB (12/16/2024 10:12 AM EDT) [facility] T Spot TB Negative Negative [facility] Comment:A negative test resu lt does not exclude the possibilityof exposure to or infection with Mycobacteriumtuberculosis (M. tuberculosis). Patients with recentexposure to TB infected individuals exhibiting anegative T-SPOT.TB result should be considered forretesting within 6 weeks or if other relevant clinicalsymptoms indicate. Results from T-SPOT.TB testing mustbe used in conjunction with each individual'sepidemiological history, current medical status,and results of other diagnostic evaluations.The T-SPOT.TB test is qualitative and results arereported as positive, borderline, or negative, giventhat the test controls perform as expected. In linewith the Centers for Disease Control and Prevention's2010 recommendation to report quantitative measurementsalongside the qualitative result, the laboratoryprovides spot counts for informational purposes only.The T-SPOT.TB test should not be interpreted as aquantitative test. TS PANEL A 0 [facility] TS PANEL B 0 [facility] Negative Control Passed [facility] Positive Control Passed [facility] Comment:For additional infor arinacaroline, please refer tohttp://education.[employer]/faq/VUN996(This link is being provided for informational/educational purposes only.)THIS TEST WAS PERFORMED AT:[employer] [id number] [place] [address]HTODWQOBINTA GUZMÁN MD,PHD 12/16/2024 10:1 2 AM EDT 12/16/2024 11:20 AM EDT us Ana Maria Mcclellan DO LAB BLOOD ORDERABLES Final R esult [facility] [address] [place] [phone] * (ABNORMAL) CBC auto differential (12/16/2024 10:12 AM EDT) White Blood Count 7.5 4.8 - 10.8 X10*3/uL [facility] Red Blood Count 5.67(H) 4.20 - 5.50 X10*6/uL [facility] Hemoglobin 13.1 12.0 - 16.0 g/dl [facility] Hematocrit 40.6 37.0 - 47.0 % [facility] Mean Corpuscular Volume 71.6(L) 80.0 - 98.0 fL [facility] Mean Corpuscular Hemoglobin 23.1(L) 27.0 - 33.0 pg [facility] Mean Corpuscular HGB Conc 32.3 31.0 - 35.0 g/dl [facility] Red Cell Distribution Width 15.8 11.0 - 16.0 % [facility] Platelet Count 335 160 - 400 X10*3/uL [facility] Mean Platelet Volume 11.1 9.4 - 12.3 fL [facility] Neutrophils Percent Auto 56.1 45 - 73 % [facility] Imm Gran Pct Auto 0.3 0.0 - 0.4 % [facility] Lymphocytes Percent Auto 36.2 20 - 40 % [facility] Monocytes Percent Auto 6.7 2 - 11 % [facility] Eosinophils Percent Auto 0.3 0 - 4 % [facility] Basophils Percent Auto 0.4 0 - 2 % [facility] NRBC Pct Auto 0.0 0.0 - 0.2 /100WBC [facility] Neutrophils Absolute Auto 4.2 2.0 - 8.3 x10*3/uL [facility] Imm Gran Abs Auto 0.02 0.00 - 0.03 X10*3/uL [facility] Lymphocytes Absolute Auto 2.7 1.2 - 4.9 X10*3/uL [facility] Monocytes Absolute Auto 0.5 0.1 - 1.2 X10*3/uL [facility] Eosinophils Absolute Auto 0.0 0.0 - 0.4 X10*3/uL [facility] Basophils Absolute Auto 0.0 0.0 - 0.2 X10*3/uL [facility] NRBC Abs Auto 0.000 0.0 - 0.012 X10*3/uL [facility] 12/16/2024 10:1 2 AM EDT 12/16/2024 11:20 AM EDT us Generic External Data Provider LAB BLOOD ORDERAB LES Final Result [facility] [address] [place] [phone] * Hepatitis C Antibody with Reflex to HCV, RNA, Quantitative, Real-Time PCR (12/16/2024 10:12 AM EDT) Hepatitis C Antibody Nonreactive Nonreactive [facility] Comment:Antibodies to HCV no t detected; does not exclude early acuteHCV infection. Blood Venous blood specimen / Unknown 12/16/2024 10:12 AM EDT 12/16/2024 11:23 AM EDT Ana Maria Mobleyaaronjuan DO LAB BLOOD ORDERABLES Final R esult Performing Organization Address City/[facility]/ZIP Co de Phone Number [facility] [address] [place] [phone] * Hepatitis B surface antigen, EIA (12/16/2024 10:12 AM EDT) Hepatitis B Surface Ag Negative Negative [facility] Blood Venous blood specimen / Unknown 12/16/2024 10:12 AM EDT 12/16/2024 11:23 AM EDT Ana Maria Eleuterio LAB BLOOD ORDERABLES Final R esult Performing Organization Address [facility] Co de Phone Number [facility] [address] [place] [phone] * Hepatitis B Core Antibody, Total (12/16/2024 10:12 AM EDT) Hepatitis B Core Antibody Nonreactive Nonreactive [facility] Blood Venous blood specimen / Unknown 12/16/2024 10:12 AM EDT 12/16/2024 11:23 AM EDT [facility] BLOOD ORDERABLES Final R esult Performing Organization Address [facility] Co de Phone Number [facility] [address] [place] [phone] * HIV-1/2 Antigen and Antibodies, Fourth Generation, with Reflexes (12/16/2024 10:12 AM EDT) HIV AB/AG Nonreactive Nonreactive [facility] Comment:HIV-1 p24 Ag and/or HIV-1/HIV-2 Ab not detected.A test result that is nonreactive does not exclude thepossibility of exposure to or infection with HIV-1 and/orHIV-2. Nonreactive results in this assay for individualswith prior exposure to HIV-1 and/or HIV-2 may be due toantigen and antibody levels that are below the limit ofdetection of this assay.The [employer] HIV Ag/Ab Combo assay result andsupplemental assay results should be interpreted inconjunction with the patient's clinical presentation,history and other laboratory results. If the results areinconsistent with clinical evidence, additional testing issuggested to confirm the result. Blood Venous blood specimen / Unknown 12/16/2024 10:12 AM EDT 12/16/2024 11:23 AM EDT Ana Maria Mcclellan LAB BLOOD ORDERABLES Final R esult Performing Organization Address City/[facility]/ZIP Co de Phone Number [facility] [address] [place] [phone] * Hepatitis B Surface Antibody, Qualitative (12/16/2024 10:12 AM EDT) Pathologist [facility] ~Hepatitis B Surface Antibody NONREACTIVE Nonreactive [facility] Comment:Nonreactive: < 8.00 mIU/mL Blood Venous blood specimen / Unknown 12/16/2024 10:12 AM EDT 12/16/2024 11:23 AM EDT Ana Maria Mcclellan [employer] LAB BLOOD ORDERABLES Final R esult Performing Organization Address City/[facility]/ZIP Co de Phone Number [facility] [address] [place] [phone] * Sed Rate by Modified [place] (12/16/2024 10:12 AM EDT) Erythrocyte Sedimentation Rate 13 0 - 20 MM/HR [facility] Comment:Patients with polycy themia and many hemoglobin abnormalitiesmay have depressed sed rates whereas patients with anemiamay have elevated sed rates. Blood Venous blood specimen / Unknown 12/16/2024 10:12 AM EDT 12/16/2024 11:20 AM EDT Ana Maria Mobleyaaronjuan DO LAB BLOOD ORDERABLES Final R esult Performing Organization Address City/[facility]/ZIP Co de Phone Number [facility] [address] [place] [phone] * C-reactive Protein (12/16/2024 10:12 AM EDT) C Reactive Protein 0.46 < or = 0.50 mg/dL [facility] Blood Venous blood specimen / Unknown 12/16/2024 10:12 AM EDT 12/16/2024 11:23 AM EDT Ana Maria Mobleyaaronjuan LAB BLOOD ORDERABLES Final R esult Performing Organization Address [facility] Co de Phone Number [facility] [address] [place] [phone] * (ABNORMAL) TSH (12/16/2024 10:12 AM EDT) Thyroid Stimulating Hormone <0.01(L) 0.32 - 4.0 uIU/mL [facility] Comment:TSH 3rd Generation ( [facility]) Blood Venous blood specimen / Unknown 12/16/2024 10:12 AM EDT 12/16/2024 11:23 AM EDT Ana Maria Mcclellan LAB BLOOD ORDERABLES Final R esult Performing Organization Address [facility]/ZIP Co de Phone Number [facility] [address] [place] [phone] * T4, Free (12/16/2024 10:12 AM EDT) Free T4 (Free Thyroxine) 1.44 0.71 - 1.85 ng/dL [facility] Blood Venous blood specimen / Unknown 12/16/2024 10:12 AM EDT 12/16/2024 11:23 AM EDT Ana Maria Eleuterio DO LAB BLOOD ORDERABLES Final R esult Performing Organization Address City/[facility]/ZIP Co de Phone Number [facility] [address] [place] [phone] * Prealbumin (12/16/2024 10:12 AM EDT) Prealbumin 25.0 20 - 40 mg/dL [facility] Blood Venous blood specimen / Unknown 12/16/2024 10:12 AM EDT 12/16/2024 11:23 AM EDT Ana Maria Eleuterio DO LAB BLOOD ORDERABLES Final R esult Performing Organization Address City/[facility] Co de Phone Number [facility] [address] [place] [phone] * Hemoglobin A1c (12/16/2024 10:12 AM EDT) Hemoglobin A1c 6.0 <6.0 % [facility] Comment:Hemoglobin A1C Refer ence Range Adults: 4.8 - 6.0 % Non diabetic: < 6.0 % Goal: < 7.0 %Additional Action Suggested: > 8.0 %Note: Hemoglobin A1c results are invalid for patients with abnormal amounts of HbF. Blood transfusions may impact the HbA1c concentration in the patient sample. Estimated Average Glucose 126 mg/dL [facility] Comment:eAG = Estimated ave rage glucose which is %A1C expressed asaverage glucose, using the formula of the U3B-AolkholHxnwviu Glucose study (ADAG), Diabetes Care, Vol.31,#8,2007 Blood Venous blood specimen / Unknown 12/16/2024 10:12 AM EDT 12/16/2024 11:20 AM EDT us Ana Maria Mcclellan DO LAB BLOOD ORDERABLES Final R esult Performing Organization Address City/[facility]/ZIP Co de Phone Number [facility] [address] [place] [phone] * Hepatic Function Panel (12/16/2024 10:12 AM EDT) Bilirubin, Direct 0.1 0.0 - 0.5 mg/dL [facility] Blood Venous blood specimen / Unknown 12/16/2024 10:12 AM EDT 12/16/2024 11:23 AM EDT Ana Maria Mcclellan DO LAB BLOOD ORDERABLES Final R esult Performing Organization Address [facility] Co de Phone Number [facility] [address] [place] [phone] * (ABNORMAL) Lipid Panel, Standard (12/16/2024 10:12 AM EDT) Triglycerides 98 <150 mg/dL [facility] Comment:Desirable Triglyceri de: less than 150 mg/dLBorderline High Triglyceride 150-199 mg/dLHigh Triglyceride: 200-499 mg/dLVery High Triglyceride: greater than or equal to 5OO mg/dL Cholesterol 215(H) <200 mg/dL [facility] Comment:Desirable Cholestero l: less than 200 mg/dLBorderline High Cholesterol: 200-239 mg/dLHigh Cholesterol: greater than 239 mg/dL LDL Cholesterol Calculated 143(H) <100 mg/dL [facility] Comment:Desirable LDL: less than 100 mg/dLNear Optimal/Above Optimal LDL: 110- 129 mg/dLBorderline High LDL: 130-159 mg/dLHigh LDL: 160-189 mg/dLVery High LDL: greater than or equal to 190 mg/dL HDL Cholesterol 53 >40 mg/dL [facility] Comment:Desirable HDL: great er than 40 mg/dL Note: This HDL assay may give artificially low results in patients with liver disease. Blood Venous blood specimen / Unknown 12/16/2024 10:12 AM EDT 12/16/2024 11:23 AM EDT us Ana Maria Mcclellan DO LAB BLOOD ORDERABLES Final R esult [facility] [address] [place] [phone] * (ABNORMAL) Comprehensive Metabolic Panel (12/16/2024 10:12 AM EDT) Sodium 143 135 - 145 mmol/L [facility] Potassium 4.0 3.3 - 5.1 mmol/L [facility] Chloride 107 96 - 108 mmol/L [facility] Carbon Dioxide 27 22 - 29 mmol/L [facility] Anion Gap 13 12 - 20 [facility] Urea Nitrogen (BUN) 15 9 - 16 mg/dL [facility] Creatinine, Serum 0.85 0.5 - 1.4 mg/dL [facility] Estimated Glomerular Filt Rate >60 [facility] Comment:Chronic Kidney Disea se: Estimated GFR < 60 mL/min/[id number] Kidney Disease: Estimated GFR < 15 mL/min/1.73m2 Glucose 117(H) 60 - 115 mg/dL [facility] Calcium 9.8 8.4 - 10.2 mg/dL [facility] Bilirubin, Total 0.5 0.0 - 1.0 mg/dL [facility] Aspartate Amino Transferase 26 5 - 31 U/L [facility] Alanine Aminotransferase 20 0 - 31 U/L [facility] Total Protein 8.0 6.5 - 8.0 g/dL [facility] Albumin Level 4.5 3.5 - 5.0 g/dL [facility] Alkaline Phosphatase 120(H) 39 - 117 U/L [facility] 12/16/2024 10:1 2 AM EDT 12/16/2024 11:23 AM EDT us Generic External Data Provider LAB BLOOD ORDERAB LES Final Result [facility] [address] [place] [phone] from Last 3 Months Insurance [facility]-TERM OPTIONS (O D-SNP) [facility] * Guarantor: Nataly Atkinson Account Type Relation to Patient Date of Phone Billing Address Personal/Family Self [address] [id number] Care Teams Extraction Supervisor Relationship Specialty Start Date End Date Ana Maria Mcclellan DO [address] [place] [phone] PCP - General Family Medicine 11/29/21
--- OUTSIDE RECORDS SUMMARY | 2024-12-24 11:55 | XMS_ITS | Clinical Summary ---
Author Organization [facility] Address [address] [place] [phone] Phone Care Team Providers Care Wind Farm Engineer Name Role Phone Ana Maria Mcclellan DO [...] [place] Care Teams Wind Farm Engineer Relationship Specialty Start Date End Date Ana Maria Mcclellan DO [address] [place] [phone] PCP - General Family Medicine 10/03/22
== END 2024-12-24 09:57 | disposition home or self-care (01) ==
LOC: HO.HHCX 09:56
PROVIDERS: PCP Family Medicine; Visit Provider Family Medicine
DX: M54.42 Lumbago with sciatica, left side (principal); G89.29 Other chronic pain
CPT/HCPCS: 72110

== ENCOUNTER → 2024-12-24 10:01 | Outpatient (BNV) | payer OTHER, SELFPAY | PROVIDERS: PCP Family Medicine; Visit Provider Radiology Diagnostic Radiology | DX: M51.360 Other intervertebral disc degeneration, lumbar region with discogenic back pain only (principal) | CPT/HCPCS: 72110 ==

== ENCOUNTER 2025-01-12 10:40 | Outpatient (REF) | payer OTHER, SELFPAY ==
--- NOTE | 2025-01-12 | EMG_ITS ---
Chief complaint: LBP radiating to left leg with numbness and tingling Reason for referral: Other chronic pain, Lumbago with sciatica, left side Referred by:?Ana Maria Mcclellan DO Procedure done: Left lower extremity NCS/EMG Description: Left peroneal and tibial motor studies were performed with F responses. Tibial H reflex was obtained. Left superficial peroneal and sural sensory studies were performed an EMG needle examination was performed. Tibial and peroneal amplitudes were reduced though tibial amplitude was significantly more reduced than peroneal with conduction velocities falling and normal range. F response for tibial stimulation was absent. Tibial H-reflex was absent. Sensory studies did not reveal any significant abnormality. Needle examination revealed polyphasic long duration motor unit potential and lower lumbar spinal. Impression: a. Chronic left lower lumbar radiculopathy b. Moderate left peroneal motor neuropathy MTDD
--- OUTSIDE RECORDS SUMMARY | 2025-01-12 12:45 | XMS_ITS | Clinical Summary ---
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, s/p [...] chart -s/p optho eval JAN 2023 at [facility] for annual f/u -f/u with renal [...] Description 12/16/2024 9:00 AM EDT Office Visit [facility] [address] [place] [phone] Ana Maria Mcclellan DO Essential hypertension (Primary Dx); Other hyperlipidemia; Intraductal carcinoma of left breast; Chronic left hip pain; Chronic pain of left knee; Chronic bilateral low back pain with left-sided sciatica; Low TSH level; Unintentional weight loss; Chronic constipation; Healthcare maintenance; Dietary counseling; Exercise counseling; Hyperlipidemia, unspecified hyperlipidemia type; Osteopenia, unspecified location 12/16/2024 Travel 12/05/2024 Telephone [facility] [address] [place] [phone] Ana Maria Mcclellan DO Chart Prep 12/05/2024 Patient Outreach [facility] [address] [place] [address] Ana Maria Mcclellan DO Pre-visit Planning (SDOH [...] with others, in a hotel, in a intermediate, living outside on the street, on a [...] AM EDT Narrative 12/24/2024 10:34 [place] [address] XRay Report Signed Patient: Nataly Atkinson MR#: [id number] : 1945 Acct:[id number] Age/Sex: 79 / F ADM Date: 12/24/24 Loc: .HHCX Attending Dr: Ana Maria Mcclellan DO Ordering Physician: Ana Maria Mcclellan DO Date of Service: 12/24/24 Procedure(s): XR lumbar spine 4V min Accession Number(s): [id number] cc: Ana Maria Mclcellan DO Reason for Exam: worsening LBP radiating [...] 12/24/24 1031 DD/ 1022 TD/TT: 12/24/24 1024 Account Manager Relief: Procedure Note Donotuseinterpreter, Image - 12/24/[address] [address] XRay Report Signed Patient: Jayjay Atkinson#: [id number] : 6Acct:[id number] Age/Sex: 79 / FADM Date: 12/24/24 Loc: HO.HHCX Attending Dr: Ana Maria Mcclellan DO Ordering Physician: Ana Maria Mcclellan DO Date of Service: 12/24/24 Procedure(s): XR lumbar spine 4V min Accession Number(s): [id number] cc: Ana Maria Mcclellan DO Reason for [...] 12/24/24 1031 DD/ 1022 TD/TT: 12/24/24 1024 Account Manager Relief: Ana Maria Mcclellan DO IMG XR PROCEDURES Edited Res ult - Final * Vitamin D, 25-Hydroxy, Total, Immunoassay (12/16/2024 10:12 AM EDT) Vitamin D 25-OH Total 51.0 >30 ng/mL [facility] Comment: Health Based Reference Values*< 20 ng/mL [id number] ng/mL Insufficient> 30 ng/mL Sufficient*Saritha NEWMAN. N [...] DO LAB BLOOD ORDERABLES Final R esult [facility] [address] [place] [phone] * T-SPOT??.TB (12/16/2024 10:12 AM EDT) [facility] T Spot TB Negative Negative [facility] Comment:A negative test resu lt does [...] as aquantitative test. TS PANEL A 0 [facility] TS PANEL B 0 [facility] Negative Control Passed [facility] Positive Control Passed [facility] Comment:For additional infor arinacaroline, please refer tohttp://education.BuildCircle/faq/OCC848(This link is being provided for informational/educational purposes only.)THIS TEST WAS PERFORMED AT:[employer] [id number] [place] [phone] GUZMÁN MD,PHD 12/16/2024 10:1 2 AM EDT 12/16/2024 11:20 AM EDT us Ana Maria Mcclellan DO LAB BLOOD ORDERABLES Final R esult [facility] [address] [place] [phone] * (ABNORMAL) CBC auto differential (12/16/2024 10:12 AM EDT) White Blood Count 7.5 4.8 - 10.8 X10*3/uL [facility] Red Blood Count 5.67(H) 4.20 - 5.50 X10*6/uL [facility] Hemoglobin 13.1 12.0 - 16.0 g/dl [facility] Hematocrit 40.6 37.0 - 47.0 % [facility] Mean Corpuscular Volume 71.6(L) 80.0 - 98.0 fL [facility] Mean Corpuscular Hemoglobin 23.1(L) 27.0 - 33.0 pg [facility] Mean Corpuscular HGB Conc 32.3 31.0 - 35.0 g/dl [facility] Red Cell Distribution Width 15.8 11.0 - 16.0 % [facility] Platelet Count 335 160 - 400 X10*3/uL [facility] Mean Platelet Volume 11.1 9.4 - 12.3 fL [facility] Neutrophils Percent Auto 56.1 45 - 73 % [facility] Imm Gran Pct Auto 0.3 0.0 - 0.4 % [facility] Lymphocytes Percent Auto 36.2 20 - 40 % [facility] Monocytes Percent Auto 6.7 2 - 11 % [facility] Eosinophils Percent Auto 0.3 0 - 4 % [facility] Basophils Percent Auto 0.4 0 - 2 % [facility] NRBC Pct Auto 0.0 0.0 - 0.2 /100WBC [facility] Neutrophils Absolute Auto 4.2 2.0 - 8.3 x10*3/uL [facility] Imm Gran Abs Auto 0.02 0.00 - 0.03 X10*3/uL [facility] Lymphocytes Absolute Auto 2.7 1.2 - 4.9 X10*3/uL [facility] Monocytes Absolute Auto 0.5 0.1 - 1.2 X10*3/uL [facility] Eosinophils Absolute Auto 0.0 0.0 - 0.4 X10*3/uL [facility] Basophils Absolute Auto 0.0 0.0 - 0.2 X10*3/uL [facility] NRBC Abs Auto 0.000 0.0 - 0.012 X10*3/uL [facility] 12/16/2024 10:1 2 AM EDT 12/16/2024 11:20 AM EDT us Generic External Data Provider LAB BLOOD ORDERAB LES Final Result [facility] [address] [place] [phone] * Hepatitis C Antibody with Reflex to HCV, RNA, Quantitative, Real-Time PCR (12/16/2024 10:12 AM EDT) Hepatitis C Antibody Nonreactive Nonreactive [facility] Comment:Antibodies to HCV no t detected; does not exclude early acuteHCV infection. Blood Venous blood specimen / Unknown 12/16/2024 10:12 AM EDT 12/16/2024 11:23 AM EDT Ana Maria Mobleyaaronjuan DO LAB BLOOD ORDERABLES Final R esult Performing Organization Address City/[facility]/ZIP Co de Phone Number [facility] [address] [place] [phone] * Hepatitis B surface antigen, EIA (12/16/2024 10:12 AM EDT) Hepatitis B Surface Ag Negative Negative [facility] Blood Venous blood specimen / Unknown 12/16/2024 10:12 AM EDT 12/16/2024 11:23 AM EDT Ana Maria Eleuterio LAB BLOOD ORDERABLES Final R esult Performing Organization Address [facility] Co de Phone Number [facility] [address] [place] [phone] * Hepatitis B Core Antibody, Total (12/16/2024 10:12 AM EDT) Hepatitis B Core Antibody Nonreactive Nonreactive [facility] Blood Venous blood specimen / Unknown 12/16/2024 10:12 AM EDT 12/16/2024 11:23 AM EDT [facility]LOOD ORDERABLES Final R esult Performing Organization Address [facility] Co de Phone Number [facility] [address] [place] [phone] * HIV-1/2 Antigen and Antibodies, Fourth Generation, with Reflexes (12/16/2024 10:12 AM EDT) HIV AB/AG Nonreactive Nonreactive [facility] Comment:HIV-1 p24 Ag and/or HIV-1/HIV-2 Ab not detected.A test result that is nonreactive does not exclude thepossibility of exposure to or infection with HIV-1 and/orHIV-2. Nonreactive results in this assay for individualswith prior exposure to HIV-1 and/or HIV-2 may be due toantigen and antibody levels that are below the limit ofdetection of this assay.The [employer] HIV Ag/Ab Combo assay result andsupplemental assay results should be interpreted inconjunction with the patient's clinical presentation,history and other laboratory results. If the results areinconsistent with clinical evidence, additional testing issuggested to confirm the result. Blood Venous blood specimen / Unknown 12/16/2024 10:12 AM EDT 12/16/2024 11:23 AM EDT Ana Maria Mcclellan LAB BLOOD ORDERABLES Final R esult Performing Organization Address City/[facility]/ZIP Co de Phone Number [facility] [address] [place] [phone] * Hepatitis B Surface Antibody, Qualitative (12/16/2024 10:12 AM EDT) Pathologist [facility] ~Hepatitis B Surface Antibody NONREACTIVE Nonreactive [facility] Comment:Nonreactive: < 8.00 mIU/mL Blood Venous blood specimen / Unknown 12/16/2024 10:12 AM EDT 12/16/2024 11:23 AM EDT Ana Maria Mcclellan [place] LAB BLOOD ORDERABLES Final R esult Performing Organization Address City/[facility]/ZIP Co de Phone Number [facility] [address] [place] [phone] * Sed Rate by Modified [place] (12/16/2024 10:12 AM EDT) Erythrocyte Sedimentation Rate 13 0 - 20 MM/HR [facility] Comment:Patients with polycy themia and many hemoglobin abnormalitiesmay have depressed sed rates whereas patients with anemiamay have elevated sed rates. Blood Venous blood specimen / Unknown 12/16/2024 10:12 AM EDT 12/16/2024 11:20 AM EDT Ana Maria Mobleyaaronjuan DO LAB BLOOD ORDERABLES Final R esult Performing Organization Address City/[facility]/ZIP Co de Phone Number [facility] [address] [place] [phone] * C-reactive Protein (12/16/2024 10:12 AM EDT) C Reactive Protein 0.46 < or = 0.50 mg/dL [facility] Blood Venous blood specimen / Unknown 12/16/2024 10:12 AM EDT 12/16/2024 11:23 AM EDT Ana Maria Mobleyaaronjuan LAB BLOOD ORDERABLES Final R esult Performing Organization Address [facility] Co de Phone Number [facility] [address] [place] [phone] * (ABNORMAL) TSH (12/16/2024 10:12 AM EDT) Thyroid Stimulating Hormone <0.01(L) 0.32 - 4.0 uIU/mL [facility] Comment:TSH 3rd Generation ( [facility]) Blood Venous blood specimen / Unknown 12/16/2024 10:12 AM EDT 12/16/2024 11:23 AM EDT Ana Maria Mcclellan LAB BLOOD ORDERABLES Final R esult Performing Organization Address [facility]/ZIP Co de Phone Number [facility] [address] [place] [phone] * T4, Free (12/16/2024 10:12 AM EDT) Free T4 (Free Thyroxine) 1.44 0.71 - 1.85 ng/dL [facility] Blood Venous blood specimen / Unknown 12/16/2024 10:12 AM EDT 12/16/2024 11:23 AM EDT Ana Maria Eleuterio DO LAB BLOOD ORDERABLES Final R esult Performing Organization Address City/[facility]/ZIP Co de Phone Number [facility] [address] [place] [phone] * Prealbumin (12/16/2024 10:12 AM EDT) Prealbumin 25.0 20 - 40 mg/dL [facility] Blood Venous blood specimen / Unknown 12/16/2024 10:12 AM EDT 12/16/2024 11:23 AM EDT Ana Maria Eleuterio DO LAB BLOOD ORDERABLES Final R esult Performing Organization Address City/[facility] Co de Phone Number [facility] [address] [place] [address] [phone] * Hemoglobin A1c (12/16/2024 10:12 AM EDT) Hemoglobin A1c 6.0 <6.0 % [facility] Comment:Hemoglobin A1C Refer ence Range Adults: 4.8 - 6.0 % Non diabetic: < 6.0 % Goal: < 7.0 %Additional Action Suggested: > 8.0 %Note: Hemoglobin A1c results are invalid for patients with abnormal amounts of HbF. Blood transfusions may impact the HbA1c concentration in the patient sample. Estimated Average Glucose 126 mg/dL [facility] Comment:eAG = Estimated ave rage glucose which is %A1C expressed asaverage glucose, using the formula of the Z1I-PcxwrmqZrmxkrz Glucose study (ADAG), Diabetes Care, Vol.31,#8,2007 Blood Venous blood specimen / Unknown 12/16/2024 10:12 AM EDT 12/16/2024 11:20 AM EDT us Ana Maria Mcclellan DO LAB BLOOD ORDERABLES Final R esult Performing Organization Address City/[facility]/ZIP Co de Phone Number [facility] [address] [place] [phone] * Hepatic Function Panel (12/16/2024 10:12 AM EDT) Bilirubin, Direct 0.1 0.0 - 0.5 mg/dL [facility] Blood Venous blood specimen / Unknown 12/16/2024 10:12 AM EDT 12/16/2024 11:23 AM EDT Ana Maria Mcclellan DO LAB BLOOD ORDERABLES Final R esult Performing Organization Address [facility] Co de Phone Number [facility] [address] [place] [phone] * (ABNORMAL) Lipid Panel, Standard (12/16/2024 10:12 AM EDT) Triglycerides 98 <150 mg/dL [facility] Comment:Desirable Triglyceri de: less than 150 mg/dLBorderline High Triglyceride 150-199 mg/dLHigh Triglyceride: 200-499 mg/dLVery High Triglyceride: greater than or equal to 5OO mg/dL Cholesterol 215(H) <200 mg/dL [facility] Comment:Desirable Cholestero l: less than 200 mg/dLBorderline High Cholesterol: 200-239 mg/dLHigh Cholesterol: greater than 239 mg/dL LDL Cholesterol Calculated 143(H) <100 mg/dL [facility] Comment:Desirable LDL: less than 100 mg/dLNear Optimal/Above Optimal LDL: 110- 129 mg/dLBorderline High LDL: 130-159 mg/dLHigh LDL: 160-189 mg/dLVery High LDL: greater than or equal to 190 mg/dL HDL Cholesterol 53 >40 mg/dL [facility] Comment:Desirable HDL: great er than 40 mg/dL Note: This HDL assay may give artificially low results in patients with liver disease. Blood Venous blood specimen / Unknown 12/16/2024 10:12 AM EDT 12/16/2024 11:23 AM EDT us Ana Maria Mcclellan DO LAB BLOOD ORDERABLES Final R esult [facility] [address] [place] [phone] * (ABNORMAL) Comprehensive Metabolic Panel (12/16/2024 10:12 AM EDT) Sodium 143 135 - 145 mmol/L [facility] Potassium 4.0 3.3 - 5.1 mmol/L [facility] Chloride 107 96 - 108 mmol/L [facility] Carbon Dioxide 27 22 - 29 mmol/L [facility] Anion Gap 13 12 - 20 [facility] Urea Nitrogen (BUN) 15 9 - 16 mg/dL [facility] Creatinine, Serum 0.85 0.5 - 1.4 mg/dL [facility] Estimated Glomerular Filt Rate >60 [facility] Comment:Chronic Kidney Disea se: Estimated GFR < 60 mL/min/1.09v4Ntdzcw Kidney Disease: Estimated GFR < 15 mL/min/1.73m2 Glucose 117(H) 60 - 115 mg/dL [facility] Calcium 9.8 8.4 - 10.2 mg/dL [facility] Bilirubin, Total 0.5 0.0 - 1.0 mg/dL [facility] Aspartate Amino Transferase 26 5 - 31 U/L [facility] Alanine Aminotransferase 20 0 - 31 U/L [facility] Total Protein 8.0 6.5 - 8.0 g/dL [facility] Albumin Level 4.5 3.5 - 5.0 g/dL [facility] Alkaline Phosphatase 120(H) 39 - 117 U/L [facility] 12/16/2024 10:1 2 AM EDT 12/16/2024 11:23 AM EDT us Generic External Data Provider LAB BLOOD ORDERAB LES Final Result [facility] [address] [place] [phone] from Last 3 Months Insurance [facility] STANDARD [facility] PENITENTIARY OPTIONS (O D-SNP) [facility] * Guarantor: Nataly Atkinson Account Type Relation to Patient Date of Phone Billing Address Personal/Family Self [address] [id number] Care Teams Medical Safety Director Relationship Specialty Start Date End Date Ana Maria Mcclellan DO [address] [place] [phone] PCP - General Family Medicine 11/29/21
--- OUTSIDE RECORDS SUMMARY | 2025-01-12 12:45 | XMS_ITS | Encounter Summary ---
Author Organization [employer] Address [address] [facility] [address] [place] [address] Care Team Providers Care Stock Supervisor Name Role Phone Ana Maria Mcclellan DO Primary Care Provider [phone] Encounter Details Date Type Department Care Team [...] on filedocumented in this encounter Care Teams Stock Supervisor Relationship Specialty Start Date End Date Ana Maria Mcclellan DO [address] [place] [phone] PCP - General Family Medicine 11/29/21 documented as of this encounter
--- OUTSIDE RECORDS SUMMARY | 2025-01-12 12:45 | XMS_ITS | Encounter Summary ---
Author Organization [employer] [facility] Address [address] [facility] [address] [place] [address] Care Team Providers Care Apron Worker Name Role Phone Leah Mcclellanfer Primary Care Provider + [phone] Reason for Referral * Consultation (Routine) - Authorized Specialty Diagnoses / Procedures Referred By Contac t Referred To Contact Pharmacy Diagnoses Essential hypertension Fariba Dominguez MD [address] [place] [address] Phone: tel: fax: Referral ID Status Reason Start Date Expiration Date Visits Requested Visits Authorized [id number] Authorized Continuity of Care 08/12/2024 08/12/2025 6 6 Encounter Details Date Type Department Care Team (Late st Contact Info) Description 08/12/2024 Orders Only [facility] [address] [place], [place] [phone] Fariba Dominguez MD [address] [place], [place] [phone] Essential hypertension (Primary Dx) Social History Tobacco [...] EDT) Sodium 143 135 - 145 mmol/L [facility] Potassium 4.0 3.3 - 5.1 mmol/L [facility] Chloride 107 96 - 108 mmol/L [facility] Carbon Dioxide 27 22 - 29 mmol/L [facility] Anion Gap 13 12 - 20 [facility] Urea Nitrogen (BUN) 15 9 - 16 mg/dL [facility] Creatinine, Serum 0.85 0.5 - 1.4 mg/dL [facility] Estimated Glomerular Filt Rate >60 [facility] Comment:Chronic Kidney Disea se: Estimated GFR < 60 mL/min/1.41n9Cjljbd Kidney Disease: Estimated GFR < 15 mL/min/1.73m2 Glucose 117(H) 60 - 115 mg/dL [facility] Calcium 9.8 8.4 - 10.2 mg/dL [facility] Bilirubin, Total 0.5 0.0 - 1.0 mg/dL [facility] Aspartate Amino Transferase 26 5 - 31 U/L [facility] Alanine Aminotransferase 20 0 - 31 U/L [facility] Total Protein 8.0 6.5 - 8.0 g/dL [facility] Albumin Level 4.5 3.5 - 5.0 g/dL [facility] Alkaline Phosphatase 120(H) 39 - 117 U/L [facility] 12/16/2024 10:1 2 AM EDT 12/16/2024 11:23 AM EDT us Generic External Data Provider LAB BLOOD ORDERAB LES Final Result [facility] [address] [place] [phone] * (ABNORMAL) CBC auto differential (12/16/2024 10:12 AM EDT) White Blood Count 7.5 4.8 - 10.8 X10*3/uL [facility] Red Blood Count 5.67(H) 4.20 - 5.50 X10*6/uL [facility] Hemoglobin 13.1 12.0 - 16.0 g/dl [facility] Hematocrit 40.6 37.0 - 47.0 % [facility] Mean Corpuscular Volume 71.6(L) 80.0 - 98.0 fL [facility] Mean Corpuscular Hemoglobin 23.1(L) 27.0 - 33.0 pg [facility] Mean Corpuscular HGB Conc 32.3 31.0 - 35.0 g/dl [facility] Red Cell Distribution Width 15.8 11.0 - 16.0 % [facility] Platelet Count 335 160 - 400 X10*3/uL [facility] Mean Platelet Volume 11.1 9.4 - 12.3 fL [facility] Neutrophils Percent Auto 56.1 45 - 73 % [facility] Imm Gran Pct Auto 0.3 0.0 - 0.4 % [facility] Lymphocytes Percent Auto 36.2 20 - 40 % [facility] Monocytes Percent Auto 6.7 2 - 11 % [facility] Eosinophils Percent Auto 0.3 0 - 4 % [facility] Basophils Percent Auto 0.4 0 - 2 % [facility] NRBC Pct Auto 0.0 0.0 - 0.2 /100WBC [facility] Neutrophils Absolute Auto 4.2 2.0 - 8.3 x10*3/uL [facility] Imm Gran Abs Auto 0.02 0.00 - 0.03 X10*3/uL [facility] Lymphocytes Absolute Auto 2.7 1.2 - 4.9 X10*3/uL [facility] Monocytes Absolute Auto 0.5 0.1 - 1.2 X10*3/uL [facility] Eosinophils Absolute Auto 0.0 0.0 - 0.4 X10*3/uL [facility] Basophils Absolute Auto 0.0 0.0 - 0.2 X10*3/uL [facility] NRBC Abs Auto 0.000 0.0 - 0.012 X10*3/uL [facility] 12/16/2024 10:1 2 AM EDT 12/16/2024 11:20 AM EDT us Generic External Data Provider LAB BLOOD ORDERAB LES Final Result [facility] [address] [place] [phone] documented in this encounter Visit Diagnoses Diagnosis Essential hypertension- Primary Unspecified essential hypertension documented in this encounter Additional Health Concerns Assessment Noted Time PHQ-9 Depression Total Score: 5 03/22/20 23 11:13 AM EST documented as of this encounter Care Teams Apron Worker Relationship Specialty Start Date End Date Ana Maria Mcclellan DO [address] [place] [address] PCP - General Family Medicine 11/29/21 documented as of this encounter
--- OUTSIDE RECORDS SUMMARY | 2025-01-12 12:45 | XMS_ITS | Encounter Summary ---
Author Organization [facility] Address [address] [facility] [address] [place] [address] Care Team Providers Care End Worker Name Role Phone Ana Maria Mcclellan DO Primary Care Provider [phone] Encounter Details Date Type Department Care Team [...] on filedocumented in this encounter Care Teams End Worker Relationship Specialty Start Date End Date Ana Maria Mcclellan DO [address] [place] [phone] PCP - General Family Medicine 11/29/21 documented as of this encounter
--- OUTSIDE RECORDS SUMMARY | 2025-01-12 12:45 | XMS_ITS | Encounter Summary ---
Author Organization [facility] Address [address] [facility] [address] [place] [address] Care Team Providers Care Reverberatory Furnace Operator Name Role Phone Ana Maria Mcclellan DO Primary Care Provider [phone] Encounter Details Date Type Department Care Team [...] on filedocumented in this encounter Care Teams Reverberatory Furnace Operator Relationship Specialty Start Date End Date Ana Maria Mcclellan DO [address] [place] [phone] PCP - General Family Medicine 11/29/21 documented as of this encounter
--- OUTSIDE RECORDS SUMMARY | 2025-01-12 12:45 | XMS_ITS | Clinical Summary ---
Author Organization [facility] Address [address] [place] [address] Phone Care Team Providers Care Home Visitor [employer] Name Role Phone Ana Maria Mcclellan DO [...] [place] Care Teams Home Visitor [employer] Relationship Specialty Start Date End Date Ana Maria Mcclellan DO [address] [place] [address] PCP - General Family Medicine 10/03/22
== END 2025-01-12 10:41 | disposition home or self-care (01) ==
LOC: HO.NEURO 10:40
PROVIDERS: PCP Family Medicine; Visit Provider Family Medicine
DX: R20.0 Anesthesia of skin (principal); R20.2 Paresthesia of skin; M54.42 Lumbago with sciatica, left side; G89.29 Other chronic pain
CPT/HCPCS: 95886; 95909

== ENCOUNTER → 2025-01-12 10:46 | Outpatient (BNV) | payer OTHER, SELFPAY | PROVIDERS: PCP Family Medicine; Visit Provider Psychiatry & Neurology Neurology | DX: M54.16 Radiculopathy, lumbar region (principal) | CPT/HCPCS: 95886; 95909 ==

== ENCOUNTER 2025-03-12 15:54 | Outpatient (AMB) | payer OTHER, SELFPAY ==
--- NOTE | 2025-03-12 15:56 | A.OFFVIS_ITS ---
Vital Signs 03/12/25 15:57 Height 5 ft 3 in Weight 149 lb 14.629 oz BMI 26.6 BP 182/82 H Blood Pressure Location Rt brachial Position Sitting Pulse 85 Pulse Source Pulse Oximeter Pulse Oximetry (%) 96 Oxygen Delivery Method Room Air Intake Visit Reasons: Persistently low TSH Intake Note: NEW Patient presents today to establish care for Persistent Low TSH: Machine Tender Required: No Accompanied by: Daughter Allergies No Known Allergies Allergy (Verified 03/12/25 15:59) HPI Comments Details: 79 yo female with PMH of HTN, Left breast cancer, OA, seen in the office for evaluation of abnormal TFTs. Onset and duration of symptoms: The patient reports a decrease in appetite over the past 3 to 4 months. Initially, she had a normal appetite and often ate at night but noticed a decline in her desire to eat, which coincided with her weight loss. Nature and severity of symptoms: The patient has experienced unintentional weight loss from 177 pounds to approximately 149 pounds. She expressed a preference for cold temperatures and has a history of anxiety but does not report palpitations, tremors, or hair loss. She does experience occasional episodes of rapid heartbeats, but these are infrequent and not persistent. Recent illnesses, stressors, or exposures: The patient had radiation therapy for breast cancer 5 years ago. Current and prior treatments: The patient has been taking a multivitamin prescribed by a doctor for a previous cancer treatment but has not taken it for the past 2 months, as it was not renewed by her physician. She denies taking biotin but it is unclear if her multivitamin contains biotin. She has not take it for last 2 months. Physical exam: General: Well appearing. Neck/Thyroid: Thyroid not palpable, no nodules. Eyes: No conjunctival injection, not lid lag or proptosis CV: RRR, no murmur. No edema. Resp:Lungs clear to auscultation bilaterally Abdomen: Soft, nontender. nondistended Extremities/Neuro: No weakness. Mild tremor of outstretched hands Laboratory Tests 12/03/23 12/16/24 11:46 10:12 Total Bilirubin 0.4 0.5 Direct Bilirubin 0.1 0.1 AST 25 26 ALT 20 20 Alkaline Phosphatase 100 120 H Triglycerides 191 H 98 Cholesterol 196 215 H LDL Cholesterol, Calc 111 H 143 H HDL Cholesterol 47 53 25-OH Vitamin D Total 52.1 51.0 TSH < 0.01 L < 0.01 L Free T4 1.16 1.44 PFSH Medical History Breast cancer HTN (hypertension) Osteopenia Low back pain Restless leg syndrome Anxiety Carcinoma of left breast Surgical History History of lumpectomy of left breast History of tubal ligation History of appendectomy H/O hernia repair Social History Household Members: Family Household Members Other:: Son, DIL, [facility] Housing: House Are you a primary long term care social worker to a significant other at home: No Do you presently have visiting nurse or other home services: No Patient Tobacco Use Status: Never used Tobacco Second Hand Smoke Exposure: No Current occupational status: retired Physical Exam Vital Signs: Last Vital Signs Pulse 85 03/12/25 15:57 BP 182/82 H 03/12/25 15:57 Pulse Ox 96 03/12/25 15:57 Oxygen Delivery Method Room Air 03/12/25 15:57 BMI result Body Mass Index 26.6 Assessment & Plan Assessment & Plan (1) Abnormal thyroid function test: Code(s): R94.6 - Abnormal results of thyroid function studies Category: Medical Plan: The patient presents with persistently suppressed TSH, unintentional weight loss and decreased appetite, but otherwise no other typical symptoms of hyperthyroidism. Clinically exam showed mi tremor of both hands, but no tachycardia. Previous radiation exposure for breast cancer and recent cessation of multivitamin could influence TSH levels. She has not taken steroids recently or any time around which she has been testing for thyroid. PLAN: Etiology/Diagnosis: - Unclear etiology of her suppressed thyroid function tests - Repeat thyroid function tests to ensure accurate assessment without biotin interference. Symptom Control: - Monitor symptoms, no immediate pharmacological intervention required. Definitive Therapy: - Pending results of thyroid function tests. Monitoring: - Labs: Repeat TSH and thyroid hormone levels to confirm previous findings and exclude false suppression due to biotin interference. Patient Education: - Instructed the patient to avoid multivitamins containing biotin for 5 days prior to thyroid testing and explained the potential impact of biotin on thyroid function tests. Follow-up: - Schedule follow-up visit after obtaining new lab results to discuss findings and potential treatment plan if necessary. ORDERS: - Repeat thyroid function tests (TSH, Free T4, Total T3) without biotin interference. Plan 30 minutes spent reviewing previous records, labs, imaging, education and documenting in the chart Orders: Orders TSH reflex Free T4 Today R94.6 - Abnormal results of thyroid function studies Coding Level of Care Code New Pt Level 3 (61893) Complex visit Add On G2211 Diagnoses Abnormal thyroid function test R94.6
[2025-03-12 15:57] VITALS: BP 182/82; PULSE 85; O2SAT 96; BMI 26.6
--- OUTSIDE RECORDS SUMMARY | 2025-03-12 22:00 | XMS_ITS | Clinical Summary ---
Author Organization [facility] Address [address] [place] [phone] Phone Care Team Providers Care Gripper Attacher Name Role Phone Jen Daugherty MD Primary Care Provider Allergies No known active allergies Medications lisinopril (PRINIVIL,ZESTRI L) 5 MG tablet Take 5 mg by mouth daily. Active Active Problems Problem Noted Date Diagnosed Date Malignant neoplasm of overla pping sites of left breast in female, estrogen receptor positive 04/18/2018 Family History Medical History Relation Comments Breast cancer Sister Relation Status Comments Sister Alive Social History Tobacco Use Types Packs/Day Years Used Date Smoking Tobacco: Former Cigarettes 1 977 - 1979 Smokeless Tobacco: Never Alcohol Use Standard Drinks/Week Comments No 0 (1 standard drink = 0.6 oz pur e alcohol) Education Answer Date Recorded Are you interested in more education? Not on salo e 08/04/2022 Are you concerned about learning? Not on file 08/04/2022 No 08/04/2022 No 08/04/2022 Digital Access Answer Date Recorded No 09/05/2022 No 09/05/2022 No 09/05/2022 Reliable internet access at home? Not on file 09/05/2022 Device with a working camera? Not on file Comments Unknown Sex and Gender Information Value Date Recorded Sex Assigned at Not on file Legal Sex Female 1:28 PM EST Gender Identity Not on file Sexual Orientation Not on file Last Filed Vital Signs Vital Sign Reading Time Taken Comments Blood Pressure 143/82 07/05/2018 12:39 PM EDT Pulse 64 07/05/2018 12:39 PM EDT Temperature 35.8 C (96.4 F) 07/05/2018 12:39 PM EDT Respiratory Rate - - Oxygen Saturation 94% 07/05/2018 12:39 PM EDT Inhaled Oxygen Concentration - - Weight 83.5 kg (184 lb) 07/05/2018 12:39 PM EDT Height 157.5 cm (5' 2 ) 04/18/2018 1:15 PM EST Body Mass Index 33.65 04/18/2018 1:15 PM EST Plan of Treatment Health Maintenance Due Date Last Done Comments CREATININE LEVEL 1945 LIPID PANEL 1945 POTASSIUM LEVEL 1945 DEPRESSION SCREENING 1957 SMOKING Hx and SMOKELESS TOBACCO SCREENING 1958 HEPATITIS C SCREENING 06/22/1963 OSTEOPOROSIS SCREENING INITI AL (ONE-TIME) 2010 PNEUMOCOCCAL VACCINES (50+ years) (2 of 2 - PPSV23, PCV20, or PCV21) 02/09/2017 12/15/2016 ZOSTER VACCINES (1 of 2) 04/10/2017 02/13/2017 RSV VACCINE (1 - 1-dose 75+ series) 2020 INFLUENZA VACCINE (#1) 2024 8, 02/13/2017 COVID-19 VACCINE ( - 2024-2 6 season) 2024 Adult Td,Tdap Booster 12/15/2026 12/15/2016 HEPATITIS A VACCINES Aged Out No long er eligible based on patient's age to complete this topic HIB VACCINES Aged Out No longer eligi ble based on patient's age to complete this topic MENINGOCOCCAL VACCINES (ACWY) Aged Out No longer eligible based on patient's age to complete this topic MENINGOCOCCAL VACCINES (B) Aged Out N o longer eligible based on patient's age to complete this topic Medical Devices Not on file Insurance [facility] MEDICARE PART A & B [facility] MEDICARE PART A & [place] & [place] A & B [facility] MEDICARE PART A & B Care Teams Gripper Attacher Relationship Specialty Start Date End Date Jen Daugherty MD PCP - General Internal Medicine 04/23/18 Additional Source Comments The information contained in this document represents components of the legal health record. It is not the complete legal health record.[facility]
--- OUTSIDE RECORDS SUMMARY | 2025-03-12 22:00 | XMS_ITS | Encounter Summary ---
Author Organization [facility] Address [address] [place] [address] [place] [phone] Phone Care Team Providers Care Assistant Project Engineer Name Role Phone Unknown, Unknown MD Primary Care Provider Jen Ren MD Primary Care Provider Reason for Referral * - Closed Specialty Diagnoses / Procedures Referred By Contac t Referred To Contact Procedures NM Other Outside (No Interpretation) System, Provider [place] In, [place] [address] Referral ID Status Reason Start Date Expiration Date Visits Re quested Visits Authorized [id number] Closed 04/08/2018 04/08/2019 1 1 Encounter Details Date Type Department Care Team (Late st Contact Info) Description 04/08/2018 Ancillary Orders [facility],Outside Imaging [address] [place] [address] System, Provider Not In, [facility] [address] Social History Tobacco Use Types Packs/Day Years Used Date Smoking Tobacco: Never Assessed Comments Unknown Sex and Gender Information Value Date Recorded Sex Assigned at Not on file Legal Sex Female 1:28 PM EST Gender Identity Not on file Sexual Orientation Not on file documented as of this encounter Plan of Treatment Not on file documented as of this encounter Results * NM Other Outside (No Interpretation) (03/18/2018 12:00 AM EST) Narrative SYSTEMGENERATED, DOCUMENTATION - 04/08/2018 9:08 AM EST This study is for PACS storage only and not for interpretation. us Provider Not In System PhD IMG OUTSIDE IMAGING W /OUT INTERPRETATION Final Result * Mammogram Outside (No Interpretation) (02/22/2018 12:00 AM EST) Narrative SYSTEMGENERATED, DOCUMENTATION - 04/08/2018 9:09 AM EST This study is for PACS storage only and not for interpretation. us Provider Not In System PhD IMG OUTSIDE IMAGING W /OUT INTERPRETATION Final Result * US Breast Outside (No Interpretation) (01/21/2018 12:15 AM EDT) Narrative SYSTEMGENERATED, DOCUMENTATION - 04/08/2018 9:11 AM EST This study is for PACS storage only and not for interpretation. us Provider Not In System PhD IMG OUTSIDE IMAGING W /OUT INTERPRETATION Final Result * Mammogram Outside (No Interpretation) (01/21/2018 12:00 AM EDT) Narrative SYSTEMGENERATED, DOCUMENTATION - 04/08/2018 9:10 AM EST This study is for PACS storage only and not for interpretation. us Provider Not In System PhD IMG OUTSIDE IMAGING W /OUT INTERPRETATION Final Result * US Breast Outside (No Interpretation) (01/10/2018 12:00 AM EDT) Narrative SYSTEMGENERATED, DOCUMENTATION - 04/08/2018 9:11 AM EST This study is for PACS storage only and not for interpretation. us Provider Not In System PhD IMG OUTSIDE IMAGING W /OUT INTERPRETATION Final Result * Mammogram Outside (No Interpretation) (12/27/2017 12:00 AM EDT) Narrative SYSTEMGENERATED, DOCUMENTATION - 04/08/2018 9:12 AM EST This study is for PACS storage only and not for interpretation. us Provider Not In System PhD IMG OUTSIDE IMAGING W /OUT INTERPRETATION Final Result documented in this encounter Visit Diagnoses Not on filedocumented in this encounter Care Teams Assistant Project Engineer Relationship Specialty Start Date End Date Unknown, Unknown, MD PCP - General 04/18/18 04/22/18 Jen Daugherty MD PCP - General Internal Medicine 04/23/18 documented as of this encounter Additional Source Comments The information contained in this document represents components of the legal health record. It is not the complete legal health record.[facility]
== END 2025-03-12 16:22 | disposition home or self-care (01) ==
LOC: HO.ENCR 15:55
PROVIDERS: PCP Family Medicine; Visit Provider Student in an Organized Health Care Education/Training Program
DX: R94.6 Abnormal results of thyroid function studies (principal)
CPT/HCPCS: 99203; G2211

== ENCOUNTER → 2025-03-12 15:54 | Outpatient (BNVA) | payer OTHER, SELFPAY | PROVIDERS: PCP Family Medicine; Visit Provider Student in an Organized Health Care Education/Training Program | DX: R94.6 Abnormal results of thyroid function studies (principal) | CPT/HCPCS: 99202 ==

== ENCOUNTER 2025-03-16 13:50 | Outpatient (REF) | payer OTHER, SELFPAY ==
[2025-03-16 16:46] LABS: Microalbum/Creatinine Ratio Ur 165.3 ug/mg cr (<30)
[2025-03-16 16:47] LABS: Appearance Urine Clear; Glucose Urine UA Negative (Negative); PH 5.5 (5.0-9.0); Specific Gravity - Urine 1.010 (1.005-1.025); UMIC TRIGGER UA YES
[2025-03-16 17:21] LABS: Anion Gap 11 (12-20); Blood Urea Nitrogen 15 mg/dL (9-16); Calcium 9.7 mg/dL (8.4-10.2); Carbon Dioxide 24 mmol/L (22-29); Chloride 111 mmol/L (96-108); Estimated Glomerular Filt Rate > 60; Potassium 3.8 mmol/L (3.3-5.1); Sodium 142 mmol/L (135-145)
[2025-03-16 18:17] LABS: Free T4 (Free Thyroxine) 1.41 ng/dL (0.71-1.85)
--- OUTSIDE RECORDS SUMMARY | 2025-03-16 22:37 | XMS_ITS | Encounter Summary ---
Author Organization [facility] Address [address] [place] [address] Care Team Providers Care Senior Ecologist Name Role Phone Leah Mcclellanfer Primary Care Provider [phone] Reason for Referral * Consultation (Routine) - Canceled Specialty Diagnoses / Procedures Referred By Contac t Referred To Contact Pharmacy Diagnoses Essential hypertension Fariba Dominguez MD [address] [place] [address] Phone: tel: fax: Referral ID Status Reason Start Date Expiration Date V isits Requested Visits Authorized [id number] Canceled Continuity of Care 08/12/2024 08/12/2025 6 6 Encounter Details Date Type Department Care Team (Late st Contact Info) Description 08/12/2024 Orders Only [facility] [address] [place], [place] [phone] Fariba Dominguez MD [address] [place] [address] Essential hypertension (Primary Dx) Social History Tobacco [...] Author Blood Pressure < 140/90 Blood Pressure 162/62( 025 2:50 PM EDT) No Caesar Fuller, PharmD documented as of this encounter Procedures Procedure Name Priority Date/Time Associated Diagnosis Comments CBC WITH AUTO DIFFERENTIAL Routine 12/16/2024 10:12 AM EDT Essential hypertension COMPREHENSIVE METABOLIC PANEL Routine 12/16/2024 10:12 AM EDT Essential hypertension documented in this encounter Results * (ABNORMAL) Comprehensive Metabolic Panel (12/16/2024 10:12 AM EDT) Sodium 143 135 - 145 mmol/L [facility] Potassium 4.0 3.3 - 5.1 mmol/L [facility] Chloride 107 96 - 108 mmol/L [facility] Carbon Dioxide 27 22 - 29 mmol/L [facility] Anion Gap 13 12 - 20 [facility] Urea Nitrogen (BUN) 15 9 - 16 mg/dL [facility] Creatinine, Serum 0.85 0.5 - 1.4 mg/dL [facility] Estimated Glomerular Filt Rate >60 [facility] Comment:Chronic Kidney Disea se: Estimated GFR < 60 mL/min/[id number] Kidney Disease: Estimated GFR < 15 mL/min/1.73m2 Glucose 117(H) 60 - 115 mg/dL [facility] Calcium 9.8 8.4 - 10.2 mg/dL [facility] Bilirubin, Total 0.5 0.0 - 1.0 mg/dL [facility] Aspartate Amino Transferase 26 5 - 31 U/L [facility] Alanine Aminotransferase 20 0 - 31 U/L [facility] Total Protein 8.0 6.5 - 8.0 g/dL [facility] Albumin Level 4.5 3.5 - 5.0 g/dL [facility] Alkaline Phosphatase 120(H) 39 - 117 U/L [facility] 12/16/2024 10:1 2 AM EDT 12/16/2024 11:23 AM EDT us Generic External Data Provider LAB BLOOD ORDERAB LES Final Result [facility] [address] [place] [address] [phone] * (ABNORMAL) CBC auto differential (12/16/2024 10:12 AM EDT) White Blood Count 7.5 4.8 - 10.8 X10*3/uL [facility] Red Blood Count 5.67(H) 4.20 - 5.50 X10*6/uL [facility] Hemoglobin 13.1 12.0 - 16.0 g/dl [facility] Hematocrit 40.6 37.0 - 47.0 % [facility] Mean Corpuscular Volume 71.6(L) 80.0 - 98.0 fL [facility] Mean Corpuscular Hemoglobin 23.1(L) 27.0 - 33.0 pg [facility] Mean Corpuscular HGB Conc 32.3 31.0 - 35.0 g/dl [facility] Red Cell Distribution Width 15.8 11.0 - 16.0 % [facility] Platelet Count 335 160 - 400 X10*3/uL [facility] Mean Platelet Volume 11.1 9.4 - 12.3 fL [facility] Neutrophils Percent Auto 56.1 45 - 73 % [facility] Imm Gran Pct Auto 0.3 0.0 - 0.4 % [facility] Lymphocytes Percent Auto 36.2 20 - 40 % [facility] Monocytes Percent Auto 6.7 2 - 11 % [facility] Eosinophils Percent Auto 0.3 0 - 4 % [facility] Basophils Percent Auto 0.4 0 - 2 % [facility] NRBC Pct Auto 0.0 0.0 - 0.2 /100WBC [facility] Neutrophils Absolute Auto 4.2 2.0 - 8.3 x10*3/uL [facility] Imm Gran Abs Auto 0.02 0.00 - 0.03 X10*3/uL [facility] Lymphocytes Absolute Auto 2.7 1.2 - 4.9 X10*3/uL [facility] Monocytes Absolute Auto 0.5 0.1 - 1.2 X10*3/uL [facility] Eosinophils Absolute Auto 0.0 0.0 - 0.4 X10*3/uL [facility] Basophils Absolute Auto 0.0 0.0 - 0.2 X10*3/uL [facility] NRBC Abs Auto 0.000 0.0 - 0.012 X10*3/uL [facility] 12/16/2024 10:1 2 AM EDT 12/16/2024 11:20 AM EDT us Generic External Data Provider LAB BLOOD ORDERAB LES Final Result Performing Organization Address City/State/[facility] Co de Phone Number [facility] [address] [place] [phone] documented in this encounter Visit Diagnoses Diagnosis Essential hypertension- Primary Unspecified essential hypertension documented in this encounter Additional Health Concerns Assessment Noted Time PHQ-9 Depression Total Score: 5 03/22/20 23 11:13 AM EST documented as of this encounter Care Teams Senior Ecologist Relationship Specialty Start Date End Date Ana Maria Mcclellan DO [address] [place] [phone] PCP - General Family Medicine 11/29/21 documented as of this encounter
--- OUTSIDE RECORDS SUMMARY | 2025-03-16 22:37 | XMS_ITS | Encounter Summary ---
Author Organization [facility] Address [address] [place] [address] Care Team Providers Care Inspector Weights And Measures Name Role Phone Ana Maria Mcclellan DO Primary Care Provider [phone] Encounter Details Date Type Department Care Team ([facility] st Contact Info) Description 03/16/2025 Orders Only GENERIC EXTERNAL DATA DEPARTMENT Provider, Generic External Data Social History Tobacco Use Types Packs/Day Years [...] with others, in a hotel, in a fdc, living outside on the street, on a [...] Blood Pressure 162/62( 025 2:50 PM EDT) Caesar Shelley, PharmD documented as of this encounter Procedures Procedure Name Priority Date/Time Associated Diagnosis Comments TSH W/REFLEX TO FT4 Routine 03/16/2025 2 :03 PM EST T4, FREE Routine 03/16/2025 2:03 PM EST documented in this encounter Results * T4, Free (03/16/2025 2:03 PM EST) Free T4 (Free Thyroxine) 1.41 0.71 - 1.85 ng/dL [facility] 03/16/2025 2:03 PM EST 03/16/2025 4:07 PM EST us Generic External Data Provider LAB BLOOD ORDERAB LES Final Result Performing Organization Address [facility] Co de Phone Number [facility] [address] [place] [address] [phone] * (ABNORMAL) TSH with Reflex to Free T4 (03/16/2025 2:03 PM EST) TSH reflex Free T4 <0.01(L) 0.32 - 4.0 uIU/mL [facility] 03/16/2025 2:03 PM EST 03/16/2025 4:07 PM EST us Generic External Data Provider LAB BLOOD ORDERAB LES Final Result Performing Organization Address [facility] de Phone Number [facility] [address] [place] [address] [phone] documented in this encounter Visit Diagnoses Not on filedocumented in this encounter Additional Health Concerns Assessment Noted Time PHQ-9 Depression Total Score: 7 12/17/19 25 10:12 AM EDT documented as of this encounter Care Teams Inspector Weights And Measures Relationship Specialty Start Date End Date Ana Maria Mcclellan DO [address] [place] [address] PCP - General Family Medicine 11/29/21 documented as of this encounter
--- OUTSIDE RECORDS SUMMARY | 2025-03-16 22:37 | XMS_ITS | Clinical Summary ---
Author Organization [employer] Address [address] [place] [address] Care Team Providers Care Outside Maintenance Worker Name Role Phone Eleuterio Ana Maria Primary Care Provider [phone] Allergies No known active allergies Medications * This document contains information received from the source organization and may not represent a complete record from that organization. spironolactone-hyd roCHLOROthiazide (Aldactazide) 25-25 MG tablet Take 1 tablet by mouth. 3 Active Blood Pressure kit 1 each 1 (one) time per week. 1 kit 4 Active lisinopril 40 MG tabletIndications: Essential hypertension Take 1 tablet (40 mg) by mouth in the morning. 30 tablet 5 12/17/19 26 Active amLODIPine (Norvasc) 10 MG tabletIndications: Essential hypertension Take 1 tablet (10 mg) by mouth in the morning. 30 tablet 5 Active metoprolol succinate XL (Toprol XL) 100 MG 24 hr tablet Take 1 tablet (100 mg) by mouth Once per day. Do not crush or chew. 30 tablet 5 12/17/19 26 Active atorvastatin (Lipitor) 20 MG tablet Take 1 tablet (20 mg) by mouth Once per day. 30 tablet 5 12/17/19 26 Active Diclofenac Sodium 1 % gel Apply 2 g topically if needed in the morning, at noon, in the evening, and at bedtime (pain). 150 g 5 5 Active acetaminophen (Tylenol 8 Hour) 650 MG ER tablet TAKE 1 TABLET BY MOUTH EVERY 6 HOURS NEEDED FOR MILD PAIN. DO NOT BREAK, CRUSH, DISSOLVE OR CHEW 60 tablet 2 5 Active Multiple Vitamin (Multivitamin) tablet TAKE 1 TABLET BY MOUTH EVERY EVENING 30 tablet 11 5 Active Calcium Carb-Cholecalcifer ol (Oyster Shell Calcium + D3) 500-10 MG-MCG tabletIndications: Hyperlipidemia, unspecified hyperlipidemia type Take 1 tablet by mouth 2 times daily. 60 tablet 11 5 12/17/19 26 Active docusate sodium (Colace) 100 MG capsule Take 1 capsule (100 mg) by mouth 2 times daily. 60 capsule 5 12/17/19 26 Active polycarbophil (Fibercon) 625 MG tablet Take 1 tablet (625 mg) by mouth 2 times daily. 60 tablet 5 12/17/19 Active polyethylene glycol, PEG, 3350 (MiraLax) 17 GM/SCOOP powder Take 17 g by mouth if needed each day (constipation ). 527 g 2 5 12/17/19 26 Active baclofen (Lioresal) 10 MG tablet Take 0.5 tablets (5 mg) by mouth if needed in the morning, at noon, and at bedtime for muscle spasms. 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, s/p lumpectomy FEB 2018, s/p [...] chart -s/p optho eval JAN 2023 at [facility] for annual f/u -f/u with renal as [...] Encounters Date Type Department Care Team Description 03/16/2025 Orders Only GENERIC EXTERNAL DATA DEPARTMENT Provider, Generic External Data 03/13/2025 Telephone [facility] [address] [place] [address] 02/15/2025 Telephone [facility] [address] [place] [address] Ana Maria Mcclellan DO Results 02/13/2025 Telephone [facility] [address] [place] [address] Ana Maria Mcclellan DO 02/03/2025 Orders Only [facility] [address] [place] [address] Ana Maria Mcclellan DO Low TSH level (Primary Dx) 01/20/2025 Travel 12/16/2024 9:00 AM EDT Office Visit [facility] [address] [place] [address] Ana Maria Mcclellan DO Essential hypertension (Primary Dx); Other hyperlipidemia; Intraductal carcinoma of left breast; Chronic left hip pain; Chronic pain of left knee; Chronic bilateral low back pain with left-sided sciatica; Low TSH level; Unintentional weight loss; Chronic constipation; Healthcare maintenance; Dietary counseling; Exercise counseling; Hyperlipidemia, unspecified hyperlipidemia type; Osteopenia, unspecified location 12/16/2024 Travel from Last 3 Months Immunizations Immunization [...] with others, in a hotel, in a custodial, living outside on the street, on a [...] Sign Reading Time Taken Comments Blood Pressure 162/62 01/20/2025 2:50 PM EDT Pulse 78 01/20/2025 2:45 PM EDT Temperature 36.1 C (97 F) 12/16/2024 [...] 05/26/2020, 10/01/2020, Additional history exists COVID-19 Vaccine ( - season) 2024 07/06/2020, 06/08/2020 Influenza Vaccine (#1) [...] 025 2:50 PM EDT) No Caesar Fuller, LuisD Procedures Procedure Name Priority Date/Time Associated Diagnosis Comments T4, FREE Routine 03/16/2025 2:03 PM EST TSH W/REFLEX TO FT4 Routine 03/16/2025 2 :03 PM EST BASIC METABOLIC PANEL Routine 03/16/2025 2:03 PM EST Unintentional weight loss URINALYSIS, COMPLETE (INCLUDES MACRO AND MICRO) Routine 03/16/2025 2:03 PM EST Essential hypertension Other hyperlipidemia Intraductal carcinoma of left breast Chronic left hip pain Chronic pain of left knee Chronic bilateral low back pain with left-sided sciatica Low TSH level Unintentional weight loss Chronic constipation Healthcare maintenance Dietary counseling Exercise counseling ALBUMIN, RANDOM URINE W/CREATININE Routine 03/16/2025 2:03 PM EST Essential hypertension Other hyperlipidemia Intraductal carcinoma of left breast Chronic left hip pain Chronic pain of left knee Chronic bilateral low back pain with left-sided sciatica Low TSH level Unintentional weight loss Chronic constipation Healthcare maintenance Dietary counseling Exercise counseling NERVE CONDUCTION TEST Routine 01/12/2025 Chronic bilateral low back pain with left-sided sciatica XR LUMBAR SPINE COMPLETE 4+ VIEWS Routine [...] Relevant to Health Maintenance Results * (ABNORMAL) TSH with Reflex to Free T4 (03/16/2025 2:03 PM EST) TSH reflex Free T4 <0.01(L) 0.32 - 4.0 uIU/mL [facility] 03/16/2025 2:03 PM EST 03/16/2025 4:07 PM EST us Generic External Data Provider LAB BLOOD ORDERAB LES Final Result Performing Organization Address [facility] Co de Phone Number [facility] [address] [place] [phone] * (ABNORMAL) Albumin, Random Urine W/Creatinine (03/16/2025 2:03 PM EST) Creatinine, Urine 82.87 mg/dL [facility] Microalbumin Urine 137.0 mg/L [facility] Microalbum Creatinine Ratio Ur 165.3(H) <30 ug/mg cr [facility] Comment:Albumin/Creatinine R atio Reference Ranges: Normal: < 30 ug/mg creatinine Microalbuminuria: 30 - 300 ug/mg creatinineClinical Albuminuria: > 300 ug/mg creatinine Urine (Urine, Random) 03/16/2025 2:03 PM EST 03/16/2025 4:07 PM EST us Ana Maria Mcclellan DO LAB URINE ORDERABLES Final R esult Performing Organization Address City/[facility]/ZIP Co de Phone Number [facility] [address] [place] [phone] * (ABNORMAL) Urinalysis Complete (03/16/2025 2:03 PM EST) Color Urine Yellow [facility] Appearance Urine Clear [facility] PH 5.5 5.0 - 9.0 [facility] Glucose Urine UA Negative Negative mg/dL [facility] Urine Blood Negative Negative [facility] Specific [place] - Urine 1.010 1.005 - 1.025 [facility] Urine Protein 30 (1+)(A) Neg-Trace mg/dL [facility] Urine Ketones Negative Negative mg/dL [facility] Nitrite Urine Negative Negative [facility] Leukocyte Esterase Urine Moderate (2+)(A) Negative [facility] RBC Urine 0-2 0 - 2 /HPF [facility] Urine WBC 11-20(A) 0 - 5 /HPF [facility] Urine Squamous Epithelial Cell 3-5 0 - 2 /HPF [facility] Urine Bacteria Trace None Seen [facility] Hyaline Casts, Urine 0-2 0 - 2 /LPF [facility] Urine (Urine, Random) 03/16/2025 2:03 PM EST 03/16/2025 4:07 PM EST us Ana Maria Mcclellan DO LAB URINE ORDERABLES Final R esult Performing Organization Address City/[facility]/ZIP Co de Phone Number [facility] [address] [place] [phone] * T4, Free (03/16/2025 2:03 PM EST) Only the most recent of2 resultswithin the time period is included. Free T4 (Free Thyroxine) 1.41 0.71 - 1.85 ng/dL [facility] 03/16/2025 2:03 PM EST 03/16/2025 4:07 PM EST us Generic External Data Provider LAB BLOOD ORDERAB LES Final Result Performing Organization Address [facility] Co de Phone Number [facility] [address] [place] [phone] * (ABNORMAL) Basic Metabolic Panel (03/16/2025 2:03 PM EST) Sodium 142 135 - 145 mmol/L [facility] Potassium 3.8 3.3 - 5.1 mmol/L [facility] Chloride 111(H) 96 - 108 mmol/L [facility] Carbon Dioxide 24 22 - 29 mmol/L [facility] Anion Gap 11(L) 12 - 20 [facility] Urea Nitrogen (BUN) 15 9 - 16 mg/dL [facility] Creatinine, Serum 0.81 0.5 - 1.4 mg/dL [facility] Estimated Glomerular Filt Rate >60 [facility] Comment:Chronic Kidney Disea se: Estimated GFR < 60 mL/min/[id number] Kidney Disease: Estimated GFR < 15 mL/min/1.73m2 Glucose 110 60 - 115 mg/dL [facility] Calcium 9.7 8.4 - 10.2 mg/dL [facility] Blood Venous blood specimen / Unknown 03/16/2025 2:03 PM EST 03/16/2025 4:07 PM EST us Ana Maria Mcclellan DO LAB BLOOD ORDERABLES Final R esult [facility] [address] [place] [address] [phone] * Nerve conduction test (01/12/2025) us Ana Maria Mcclellan DO NEUROLOGY ORDERABLES Final R esult * XR Lumbar Spine Complete 4+ Views (12/24/2024 10:22 AM EDT) Anatomical Region Laterality Modality Spine, L-spine Radiographic Shira ging 12/24/2024 10:2 2 AM EDT Narrative 12/24/2024 10:34 AM EDT [address] [address] XRay Report Signed Patient: Nataly Atkinson MR#: [id number] : 1945 Acct:[id number] Age/Sex: 79 / F ADM Date: 12/24/24 Loc: [facility] Attending Dr: Ana Maria Mcclellan DO Ordering Physician: Ana Maria Mcclellan DO Date of Service: 12/24/24 Procedure(s): XR lumbar spine 4V min Accession Number(s): [id number] cc: Ana Maria Mcclellan DO Reason for [...] 12/24/24 1031 DD/ 1022 TD/TT: 12/24/24 1024 Licensed Final Expense Agents: Procedure Note Donotuseinterpreter, Image - 12/24/[address] [address] XRay Report Signed Patient: Jayjay Atkinson#: [id number] : 6Acct:[id number] Age/Sex: 79 / FADM Date: 12/24/24 Loc: [facility] Attending Dr: Ana Maria Mcclellan DO Ordering Physician: Ana Maria Mcclellan DO Date of Service: 12/24/24 Procedure(s): XR lumbar spine 4V min Accession Number(s): [id number] cc: Ana Maria Mcclellan DO Reason for [...] 12/24/24 1031 DD/ 1022 TD/TT: 12/24/24 1024 Licensed Final Expense Agents: Ana Maria Mcclellan DO IMG XR PROCEDURES Edited Res ult - Final * Vitamin D, 25-Hydroxy, Total, Immunoassay (12/16/2024 10:12 AM EDT) Vitamin D 25-OH Total 51.0 >30 ng/mL [facility] Comment: Health Based Reference Values*< 20 ng/mL Toopkrabr74-71 ng/mL Insufficient> 30 ng/mL Sufficient*Saritha NEWMAN. N [...] DO LAB BLOOD ORDERABLES Final R esult [facility] [address] [place] [phone] * T-SPOT??.TB (12/16/2024 10:12 AM EDT) Pathologist [facility] T Spot TB Negative Negative [facility] Comment:A negative test resu lt [...] as aquantitative test. TS PANEL A 0 [facility] TS PANEL B 0 [facility] Negative Control Passed [facility] Positive Control Passed [facility] Comment:For additional infor farhana, please refer tohttp://education.[employer]/faq/WPL197(This link is being provided for informational/educational purposes only.)THIS TEST WAS PERFORMED AT:[employer] [id number] [place] [address]CTHVFUY W. MASON,MD,PHD 12/16/2024 10:1 2 AM EDT 12/16/2024 11:20 AM EDT Ana Maria Mcclellan DO LAB BLOOD ORDERABLES Final R esult [facility] [address] [place] [phone] * (ABNORMAL) CBC auto differential (12/16/2024 10:12 AM EDT) White Blood Count 7.5 4.8 - 10.8 X10*3/uL [facility] Red Blood Count 5.67(H) 4.20 - 5.50 X10*6/uL [facility] Hemoglobin 13.1 12.0 - 16.0 g/dl [facility] Hematocrit 40.6 37.0 - 47.0 % [facility] Mean Corpuscular Volume 71.6(L) 80.0 - 98.0 fL [facility] Mean Corpuscular Hemoglobin 23.1(L) 27.0 - 33.0 pg [facility] Mean Corpuscular HGB Conc 32.3 31.0 - 35.0 g/dl [facility] Red Cell Distribution Width 15.8 11.0 - 16.0 % [facility] Platelet Count 335 160 - 400 X10*3/uL [facility] Mean Platelet Volume 11.1 9.4 - 12.3 fL [facility] Neutrophils Percent Auto 56.1 45 - 73 % [facility] Imm Gran Pct Auto 0.3 0.0 - 0.4 % [facility] Lymphocytes Percent Auto 36.2 20 - 40 % [facility] Monocytes Percent Auto 6.7 2 - 11 % [facility] Eosinophils Percent Auto 0.3 0 - 4 % [facility] Basophils Percent Auto 0.4 0 - 2 % [facility] NRBC Pct Auto 0.0 0.0 - 0.2 /100WBC [facility] Neutrophils Absolute Auto 4.2 2.0 - 8.3 x10*3/uL [facility] Imm Gran Abs Auto 0.02 0.00 - 0.03 X10*3/uL [facility] Lymphocytes Absolute Auto 2.7 1.2 - 4.9 X10*3/uL [facility] Monocytes Absolute Auto 0.5 0.1 - 1.2 X10*3/uL [facility] Eosinophils Absolute Auto 0.0 0.0 - 0.4 X10*3/uL [facility] Basophils Absolute Auto 0.0 0.0 - 0.2 X10*3/uL [facility] NRBC Abs Auto 0.000 0.0 - 0.012 X10*3/uL [facility] 12/16/2024 10:1 2 AM EDT 12/16/2024 11:20 AM EDT us Generic External Data Provider LAB BLOOD ORDERAB LES Final Result [facility] [address] [place] [phone] * Hepatitis C Antibody with Reflex to HCV, RNA, Quantitative, Real-Time PCR (12/16/2024 10:12 AM EDT) Hepatitis C Antibody Nonreactive Nonreactive [facility] Comment:Antibodies to HCV no t detected; does not exclude early acuteHCV infection. Blood Venous blood specimen / Unknown 12/16/2024 10:12 AM EDT 12/16/2024 11:23 AM EDT us Ana Maria Mcclellan DO LAB BLOOD ORDERABLES Final R esult Performing Organization Address City/[facility]/ZIP Co de Phone Number [facility] [address] [place] [phone] * Hepatitis B surface antigen, EIA (12/16/2024 10:12 AM EDT) Hepatitis B Surface Ag Negative Negative [facility] Blood Venous blood specimen / Unknown 12/16/2024 10:12 AM EDT 12/16/2024 11:23 AM EDT us Ana Maria Mcclellan DO LAB BLOOD ORDERABLES Final R esult Performing Organization Address City/[facility]/ZIP Co de Phone Number [facility] [address] [place] [phone] * Hepatitis B Core Antibody, Total (12/16/2024 10:12 AM EDT) Hepatitis B Core Antibody Nonreactive Nonreactive [facility] Blood Venous blood specimen / Unknown 12/16/2024 10:12 AM EDT 12/16/2024 11:23 AM EDT Ana Maria Mcclellan DO LAB BLOOD ORDERABLES Final R esult Performing Organization Address City/[facility]/ZIP Co de Phone Number [facility] [address] [place] [address] [place] [phone] * HIV-1/2 Antigen and Antibodies, Fourth Generation, with Reflexes (12/16/2024 10:12 AM EDT) Pathologist [facility] HIV AB/AG Nonreactive Nonreactive [facility] Comment:HIV-1 p24 Ag and/or HIV-1/HIV-2 Ab not detected.A test result that is nonreactive does not exclude thepossibility of exposure to or infection with HIV-1 and/orHIV-2. Nonreactive results in this assay for individualswith prior exposure to HIV-1 and/or HIV-2 may be due toantigen and antibody levels that are below the limit ofdetection of this assay.The RMI HIV Ag/Ab Combo assay result andsupplemental assay results should be interpreted inconjunction with the patient's clinical presentation,history and other laboratory results. If the results areinconsistent with clinical evidence, additional testing issuggested to confirm the result. Blood Venous blood specimen / Unknown 12/16/2024 10:12 AM EDT 12/16/2024 11:23 AM EDT Ana Maria Mcclellan DO LAB BLOOD ORDERABLES Final R esult Performing Organization Address City/[facility]/ZIP Co de Phone Number [facility] [address] [place] [phone] * Hepatitis B Surface Antibody, Qualitative (12/16/2024 10:12 AM EDT) Pathologist [facility] ~Hepatitis B Surface Antibody NONREACTIVE Nonreactive [facility] Comment:Nonreactive: < 8.00 mIU/mL Blood Venous blood specimen / Unknown 12/16/2024 10:12 AM EDT 12/16/2024 11:23 AM EDT Ana Maria Mcclellan DO LAB BLOOD ORDERABLES Final R esult [facility] [address] [place] [phone] * Sed Rate by Modified Julio Cren (12/16/2024 10:12 AM EDT) Erythrocyte Sedimentation Rate 13 0 - 20 MM/HR [facility] Comment:Patients with polycy themia and many hemoglobin abnormalitiesmay have depressed sed rates whereas patients with anemiamay have elevated sed rates. Blood Venous blood specimen / Unknown 12/16/2024 10:12 AM EDT 12/16/2024 11:20 AM EDT Ana Maria Mcclellan DO LAB BLOOD ORDERABLES Final R esult Performing Organization Address City/[facility]/ZIP Co de Phone Number [facility] [address] [place] [phone] * C-reactive Protein (12/16/2024 10:12 AM EDT) C Reactive Protein 0.46 < or = 0.50 mg/dL [facility] Blood Venous blood specimen / Unknown 12/16/2024 10:12 AM EDT 12/16/2024 11:23 AM EDT Ana Maria Mcclellan DO LAB BLOOD ORDERABLES Final R esult Performing Organization Address City/[facility]/ZIP Co de Phone Number [facility] [address] [place] [phone] * (ABNORMAL) TSH (12/16/2024 10:12 AM EDT) Thyroid Stimulating Hormone <0.01(L) 0.32 - 4.0 uIU/mL [facility] Comment:TSH 3rd Generation ( [facility]) Blood Venous blood specimen / Unknown 12/16/2024 10:12 AM EDT 12/16/2024 11:23 AM EDT Ana Maria Mcclellan DO LAB BLOOD ORDERABLES Final R esult [facility] [address] [place] [phone] * Prealbumin (12/16/2024 10:12 AM EDT) Prealbumin 25.0 20 - 40 mg/dL [facility] Blood Venous blood specimen / Unknown 12/16/2024 10:12 AM EDT 12/16/2024 11:23 AM EDT Ana Maria Mcclellan DO LAB BLOOD ORDERABLES Final R esult Performing Organization Address [facility] de Phone Number [facility] [address] [place] [phone] * Hemoglobin A1c (12/16/2024 10:12 AM EDT) Pathologist [facility] Hemoglobin A1c 6.0 <6.0 % [facility] Comment:Hemoglobin A1C Refer ence Range Adults: 4.8 - 6.0 % Non diabetic: < 6.0 % Goal: < 7.0 %Additional Action Suggested: > 8.0 %Note: Hemoglobin A1c results are invalid for patients with abnormal amounts of HbF. Blood transfusions may impact the HbA1c concentration in the patient sample. Estimated Average Glucose 126 mg/dL [facility] Comment:eAG = Estimated ave rage glucose which is %A1C expressed asaverage glucose, using the formula of the P5K-DbazbiwAmjbeab Glucose study (ADAG), Diabetes Care, Vol.31,#8,Aug. 2007 Blood Venous blood specimen / Unknown 12/16/2024 10:12 AM EDT 12/16/2024 11:20 AM EDT Ana Maria Mcclellan DO LAB BLOOD ORDERABLES Final R esult Performing Organization Address [facility] Co de Phone Number [facility] [address] [place] [phone] * Hepatic Function Panel (12/16/2024 10:12 AM EDT) Bilirubin, Direct 0.1 0.0 - 0.5 mg/dL [facility] Blood Venous blood specimen / Unknown 12/16/2024 10:12 AM EDT 12/16/2024 11:23 AM EDT Ana Maria Mcclellan LAB BLOOD ORDERABLES Final R esult Performing Organization Address City/[facility] Co de Phone Number [facility] [address] [place] [phone] * (ABNORMAL) Lipid Panel, Standard (12/16/2024 10:12 AM EDT) Triglycerides 98 <150 mg/dL [facility] Comment:Desirable Triglyceri de: less than 150 mg/dLBorderline High Triglyceride 150-199 mg/dLHigh Triglyceride: 200-499 mg/dLVery High Triglyceride: greater than or equal to 5OO mg/dL Cholesterol 215(H) <200 mg/dL [facility] Comment:Desirable Cholestero l: less than 200 mg/dLBorderline High Cholesterol: 200-239 mg/dLHigh Cholesterol: greater than 239 mg/dL LDL Cholesterol Calculated 143(H) <100 mg/dL [facility] Comment:Desirable LDL: less than 100 mg/dLNear Optimal/Above Optimal LDL: 110- 129 mg/dLBorderline High LDL: 130-159 mg/dLHigh LDL: 160-189 mg/dLVery High LDL: greater than or equal to 190 mg/dL HDL Cholesterol 53 >40 mg/dL [facility] Comment:Desirable HDL: great er than 40 mg/dL Note: This HDL assay may give artificially low results in patients with liver disease. Blood Venous blood specimen / Unknown 12/16/2024 10:12 AM EDT 12/16/2024 11:23 AM EDT Ana Maria Mcclellan DO LAB BLOOD ORDERABLES Final R esult Performing Organization Address City/[facility]/ZIP Co de Phone Number [facility] [address] [place] [phone] * (ABNORMAL) Comprehensive Metabolic Panel (12/16/2024 10:12 AM EDT) Sodium 143 135 - 145 mmol/L [facility] Potassium 4.0 3.3 - 5.1 mmol/L [facility] Chloride 107 96 - 108 mmol/L [facility] Carbon Dioxide 27 22 - 29 mmol/L [facility] Anion Gap 13 12 - 20 [facility] Urea Nitrogen (BUN) 15 9 - 16 mg/dL [facility] Creatinine, Serum 0.85 0.5 - 1.4 mg/dL [facility] Estimated Glomerular Filt Rate >60 [facility] Comment:Chronic Kidney Disea se: Estimated GFR < 60 mL/min/1.88j8Odswxa Kidney Disease: Estimated GFR < 15 mL/min/1.73m2 Glucose 117(H) 60 - 115 mg/dL [facility] Calcium 9.8 8.4 - 10.2 mg/dL [facility] Bilirubin, Total 0.5 0.0 - 1.0 mg/dL [facility] Aspartate Amino Transferase 26 5 - 31 U/L [facility] Alanine Aminotransferase 20 0 - 31 U/L [facility] Total Protein 8.0 6.5 - 8.0 g/dL [facility] Albumin Level 4.5 3.5 - 5.0 g/dL [facility] Alkaline Phosphatase 120(H) 39 - 117 U/L [facility] 12/16/2024 10:1 2 AM EDT 12/16/2024 11:23 AM EDT us Generic External Data Provider LAB BLOOD ORDERAB LES Final Result [facility] [address] [place] [phone] from Last 3 Months Insurance [facility] OPTIONS (HMO D-SNP) [facility] Care Teams Outside Maintenance Worker Relationship Specialty Start Date End Date Ana Maria Mcclellan DO [address] [place] [phone] PCP - General Family Medicine 11/29/21
--- OUTSIDE RECORDS SUMMARY | 2025-03-16 22:37 | XMS_ITS | Encounter Summary ---
Author Organization [facility] [facility] Address [address] [facility] [address] [place] [address] Care Team Providers Care Legal Referee Name Role Phone Ana Maria Mcclellan DO Primary Care Provider [phone] Encounter Details Date Type Department Care Team [...] on filedocumented in this encounter Care Teams Legal Referee Relationship Specialty Start Date End Date Ana Maria Mcclellan DO [address] [place] [address] PCP - General Family Medicine 11/29/21 documented as of this encounter
--- OUTSIDE RECORDS SUMMARY | 2025-03-16 22:37 | XMS_ITS | Encounter Summary ---
Author Organization [employer] [facility] Address [address] [facility] [address] [place] [address] Care Team Providers Care Shell Mold Bonder Name Role Phone Ana Maria Mcclellan DO Primary Care Provider [phone]- [phone] Encounter Details Date Type Department Care Team [...] on filedocumented in this encounter Care Teams Shell Mold Bonder Relationship Specialty Start Date End Date Ana Maria Mcclellan DO [address] [place] [address] PCP - General Family Medicine 11/29/21 documented as of this encounter
--- OUTSIDE RECORDS SUMMARY | 2025-03-16 22:37 | XMS_ITS | Encounter Summary ---
Author Organization [facility] Address [address] [place] [address] [place] [phone] Phone Care Team Providers Care Boiler Room Helper Name Role Phone Unknown, Unknown Primary Care Provider Amalia Marques, Jen Griffith MD Primary Care Provider + Reason for Referral * - Closed Specialty Diagnoses / Procedures Referred By Contac t Referred To Contact Procedures NM Other Outside (No Interpretation) System, Provider Not In, [place] [address] Referral ID Status Reason Start Date Expiration Date Visits Re quested Visits Authorized [id number] Closed 04/08/2018 04/08/2019 1 1 Encounter Details Date Type Department Care Team (Late st Contact Info) Description 04/08/2018 Ancillary Orders [facility],Outside Imaging [address] [place] [address] System, Provider Not In, PhD [employer] [address] Social History Tobacco Use Types Packs/Day Years [...] on filedocumented in this encounter Care Teams Boiler Room Helper Relationship Specialty Start Date End Date Unknown, Unknown, MD PCP - General 04/18/18 04/22/18 Jen Marques MD PCP - General Internal Medicine 04/23/18 documented as of this encounter Additional Source Comments The information contained in this document represents components of the legal health record. It is not the complete legal health record.[facility]
--- OUTSIDE RECORDS SUMMARY | 2025-03-16 22:37 | XMS_ITS | Encounter Summary ---
Author Organization [employer] [facility] Address [address] [facility] [address] [place] [address] Care Team Providers Care Banquet Manager Name Role Phone Ana Maria Mcclellan DO Primary Care Provider [phone] Encounter Details Date Type Department Care Team [...] on filedocumented in this encounter Care Teams Banquet Manager Relationship Specialty Start Date End Date Ana Maria Mcclellan DO [address] [place] [address] PCP - General Family Medicine 11/29/21 documented as of this encounter
--- OUTSIDE RECORDS SUMMARY | 2025-03-16 22:37 | XMS_ITS | Clinical Summary ---
Author Organization [facility] Address [address] [facility] [address] [place] [address] Phone Care Team Providers Care Recreation Programmer Name Role Phone Jen Marques MD Primary Care Provider + Allergies No known active allergies Medications lisinopril [...] topic Medical Devices Not on file [facility] & [place] & [place] & [place] & B [facility] MEDICARE PART A & B Care Teams Recreation Programmer Relationship Specialty Start Date End Date Jen Marques MD PCP - General Internal Medicine 04/23/18 Additional Source Comments The information contained in this document represents components of the legal health record. It is not the complete legal health record.[facility]
--- OUTSIDE RECORDS SUMMARY | 2025-03-16 22:37 | XMS_ITS | Encounter Summary ---
Author Organization [employer] Address [address] [facility] [address] [place] [address] Care Team Providers Care Esl Teacher Name Role Phone Ana Maria Mcclellan DO Primary Care Provider + [phone] Encounter Details Date Type Department Care Team ([facility] st Contact Info) Description 03/13/2025 Telephone [facility] [address] [place], [place] [phone] Sunday, Supriya [address] [place], [place] [phone] Social History Tobacco Use Types Packs/Day Years [...] with others, in a hotel, in a fci, living outside on the street, on a [...] t he electric, gas, oil or water [employer] threatened to shut off services in your [...] AM EDT documented as of this encounter Miscellaneous Notes * Telephone Encounter - Supriya Sunday - 03/13/2025 11:58 AM EST Patient no showed today's MTM visit. However, it was noted that patient last picked up spironolactone -hydrochlorothiazide on 01/20/25 for 23 days supply (about 1 month without medication). Per [facility] Endocrinology, blood pressure ws 182/82 mmHg at the visit yesterday. [facility] reached out to the nephrology office, who last prescribed spironolactone-hydrochlorothiazide. Reports patient was last seen lastyear and needs to be seen by the provider before prescription renewal is sent to the pharmacy. Nephrology office is unable to reach patient. MTM team also outreach patient, left voicemail. Please assess if medication needs to be restarted or to be seen for RN BP check. documented in this encounter Plan of Treatment Not on file documented as of this encounter Goals Goal Patient Goal Type Associated Problems Recent Progress Patient-Stated? Author Blood Pressure < 140/90 Blood Pressure 162/62( 025 2:50 PM EDT) No Casear Fuller, PharmD documented as of this encounter Visit Diagnoses Not on filedocumented in this encounter Additional Health Concerns Assessment Noted Time PHQ-9 Depression Total Score: 7 12/17/19 25 10:12 AM EDT documented as of this encounter Care Teams Esl Teacher Relationship Specialty Start Date End Date Ana Maria Mcclellan DO [address] [place] [address] PCP - General Family Medicine 11/29/21 documented as of this encounter
== END 2025-03-16 13:51 | disposition home or self-care (01) ==
LOC: HO.HHCL 13:50
PROVIDERS: PCP Family Medicine; Visit Provider Student in an Organized Health Care Education/Training Program
DX: Z00.00 Encounter for general adult medical examination without abnormal findings (principal); R94.6 Abnormal results of thyroid function studies; R63.4 Abnormal weight loss; I10 Essential (primary) hypertension; E78.49 Other hyperlipidemia; D05.12 Intraductal carcinoma in situ of left breast; M25.552 Pain in left hip; G89.29 Other chronic pain; M25.562 Pain in left knee; M54.42 Lumbago with sciatica, left side; R79.89 Other specified abnormal findings of blood chemistry; K59.09 Other constipation; Z71.3 Dietary counseling and surveillance; Z71.82 Exercise counseling
CPT/HCPCS: 36415; 80048; 81001; 82043; 82570; 83520; 84439; 84443; 84445; 84480

== ENCOUNTER 2025-03-26 16:37 | Outpatient (AMB) | payer OTHER, SELFPAY ==
[2025-03-26 16:39] VITALS: BP 132/62; PULSE 85; O2SAT 95; BMI 26.6
--- NOTE | 2025-03-26 16:39 | A.OFFVIS_ITS ---
Vital Signs 03/26/25 16:39 Height 5 ft 3 in Weight 149 lb 14.629 oz BMI 26.6 BP 132/62 Blood Pressure Location Rt brachial Position Sitting Pulse 85 Pulse Source Pulse Oximeter Pulse Oximetry (%) 95 Oxygen Delivery Method Room Air Intake Visit Reasons: Persistently low TSH Intake Note: NEW Patient presents today to establish care for Persistent Low TSH: Box Builder Required: No Accompanied by: Daughter Allergies No Known Allergies Allergy (Verified 03/12/25 15:59) Medication List - Last Reconciled 03/26/25 by Yeset Yan Jean MD acetaminophen ER (Tylenol 8 Hour) 650 mg PO Q12H PRN amlodipine 10 mg PO DAILY atorvastatin (Lipitor) 20 mg PO BEDTIME calcium carbonate-vitamin D3 500 mg-10 mcg (400 unit) (Oyster Shell Calcium- Vitamin D3) 1 tab PO DAILY lidocaine 5% 1 patch topical DAILY lisinopril 10 mg PO DAILY methimazole 5 mg PO DAILY metoprolol succinate ER 50 mg PO DAILY multivitamin 1 tab PO DAILY spironolacton-hydrochlorothiaz 25-25 mg 1 tab PO QAM HPI Comments Details: 79 yo female with PMH of HTN, Left breast cancer, OA, seen in the office for evaluation of abnormal TFTs. Onset and duration of symptoms: The patient reports a decrease in appetite over the past 3 to 4 months. Initially, she had a normal appetite and often ate at night but noticed a decline in her desire to eat, which coincided with her weight loss. Nature and severity of symptoms: The patient has experienced unintentional weight loss from 177 pounds to approximately 149 pounds. She expressed a preference for cold temperatures and has a history of anxiety but does not report palpitations, tremors, or hair loss. She does experience occasional episodes of rapid heartbeats, but these are infrequent and not persistent. Recent illnesses, stressors, or exposures: The patient had radiation therapy for breast cancer 5 years ago. Current and prior treatments: The patient has been taking a multivitamin prescribed by a doctor for a previous cancer treatment but has not taken it for the past 2 months, as it was not renewed by her physician. She denies taking biotin but it is unclear if her multivitamin contains biotin. She has not take it for last 2 months. Interval history: Current weight is stable at 149 pounds. Reports occasional episodes of rapid heartbeats, but these are infrequent and not persistent. Denies palpitations, tremors, or hair loss. Reports a preference for cold temperatures. Physical exam: General: Well appearing. Neck/Thyroid: Thyroid not palpable, no nodules. CV: RRR, no murmur. No edema. Resp:Lungs clear to auscultation bilaterally Abdomen: Soft, nontender. nondistended Extremities/Neuro: No weakness. Mild tremor of outstretched hands Laboratory Tests 03/16/25 03/16/25 14:03 14:03 TSH < 0.01 L Free T4 1.41 Total T3 281 H Thyroid Stim Immunoglob <89 TSH Receptor Ab <1.00 <1.00 Laboratory Tests 12/03/23 12/16/24 11:46 10:12 Total Bilirubin 0.4 0.5 Direct Bilirubin 0.1 0.1 AST 25 26 ALT 20 20 Alkaline Phosphatase 100 120 H Triglycerides 191 H 98 Cholesterol 196 215 H LDL Cholesterol, Calc 111 H 143 H HDL Cholesterol 47 53 25-OH Vitamin D Total 52.1 51.0 TSH < 0.01 L < 0.01 L Free T4 1.16 1.44 PFSH Medical History Breast cancer HTN (hypertension) Osteopenia Low back pain Restless leg syndrome Anxiety Carcinoma of left breast Surgical History History of lumpectomy of left breast History of tubal ligation History of appendectomy H/O hernia repair Social History Household Members: Family Household Members Other:: Son, DIL, Grandaughter Housing: House Are you a primary critical care clinical nurse specialist to a significant other at home: No Do you presently have visiting nurse or other home services: No Patient Tobacco Use Status: Never used Tobacco Second Hand Smoke Exposure: No Current occupational status: retired Physical Exam Vital Signs: Last Vital Signs Pulse 85 03/26/25 16:39 BP 132/62 03/26/25 16:39 Pulse Ox 95 03/26/25 16:39 Oxygen Delivery Method Room Air 03/26/25 16:39 BMI result Body Mass Index 26.6 Assessment & Plan Assessment & Plan (1) Abnormal thyroid function test: Code(s): R94.6 - Abnormal results of thyroid function studies Category: Medical Plan: - Assessment: The patient presents with persistently suppressed TSH and elevated Free T4, consistent with hyperthyroidism. Clinically, there is a mild tremor but no tachycardia on examination. The etiology of the suppressed thyroid function tests is unclear but may be influenced by previous radiation exposure for breast cancer and recent cessation of a multivitamin that may have contained biotin. - Investigations planned: A thyroid uptake scan will be ordered to assess thyroid function further. - Medical treatment planned: Will initiate methimazole at a low dose of 2.5 mg daily to control thyroid function without causing significant suppression. - Lifestyle modifications: No specific lifestyle modifications were discussed at this visit. - Follow-up appointments: A follow-up visit is scheduled in 3 month, She should repeat blood work in six weeks to assess response to treatment. Plan 30 minutes spent reviewing previous records, labs, imaging, education and documenting in the chart Orders: Orders TSH reflex Free T4 6 Weeks R94.6 - Abnormal results of thyroid function studies NM thyroid w uptake Today R94.6 - Abnormal results of thyroid function studies Triiodothyronine T3 Total 6 Weeks R94.6 - Abnormal results of thyroid function studies Medications: New methimazole [place] 1/2 tab al kamryn 5 mg PO DAILY 30 tabs 3RF Patient Instructions: Instrucciones para el Paciente ? Hipertiroidismo ?Cu?l es el problema? Diaz gl?ndula tiroides est? trabajando m?s de lo normal (hipertiroidismo). Rains hace que diaz cuerpo produzca demasiada hormona tiroidea, lo cual puede causar s?ntomas usman: P?rdida de peso sin intenci?n Disminuci?n del apetito Temblor leve en las kam Nerviosismo o sensaci?n de aceleraci?n La tiroides tambi?n puede funcionar poco (hipotiroidismo) o de forma normal. En diaz renny, est? funcionando en exceso. Estudios que se realizar?n Se ordenar? un estudio de captaci?n tiroidea (thyroid uptake scan) para entender mejor la causa del hipertiroidismo y c?mo est? funcionando la gl?ndula. Tratamiento Comenzar? un medicamento llamado metimazol. Dosis: 2.5 mg lg vez al d?a. Esta es lg dosis baja, elegida para controlar la tiroides sin bajarla demasiado. ?? Soco medicamento ayuda a que la tiroides produzca menos hormona. Efectos secundarios importantes del metimazol La mayor?a de las personas lo toleran beatriz, rex es importante que conozca los posibles efectos: Efectos leves (m?s comunes): Molestia estomacal leve N?useas Sarpullido o comez?n en la piel Efecto raro rex grave (muy importante): Agranulocitosis (disminuci?n grave de gl?bulos blancos) ?? Busque atenci?n m?dica de emergencia DE INMEDIATO y suspenda el medicamento si presenta: Dolor de garganta rebel Fiebre jonah S?ntomas severos usman lg gripe rebel o infecci?n ?? Informe al personal m?dico que est? tomando metimazol y p?dales que contacten nuestra oficina. Por favor recuerde para de shivam la medicina 5 torrez antes del estudio del tiroides (uptake scan) Coding Level of Care Code Tele Est Pt Level 4 (68791) Add On Problem Visit Only Diagnoses Abnormal thyroid function test R94.6
--- OUTSIDE RECORDS SUMMARY | 2025-03-26 19:46 | XMS_ITS | Encounter Summary ---
Author Organization [employer] [facility] Address [address] [facility] [address] [address] Care Team Providers Care Dietetic Technician Registered Name Role Phone Ana Maria Mcclellan DO Primary Care Provider [phone]- [phone] Encounter Details Date Type Department Care Team (Latest Contact Info) Description 04/01/2019 Abstract [facility] CONVERSIONS Dental, Provider, DDS Social History Tobacco [...] as of this encounter Plan of Treatment Upcoming Encounters Date Type Department Care Team (Late st Contact Info) Description 04/17/2025 10:00 AM EST Office Visit [facility] MEDICINE [address] [place] [address] Ana Maria Mcclellan DO [address] [place] [address] documented as of this encounter Visit Diagnoses Not on filedocumented in this encounter Care Teams Dietetic Technician Registered Relationship Specialty Start Date End Date Ana Maria Mcclellan DO [address] [place] [address] PCP - General Family Medicine 11/29/21 documented as of this encounter
--- OUTSIDE RECORDS SUMMARY | 2025-03-26 19:46 | XMS_ITS | Encounter Summary ---
Author Organization [employer] [facility] Address [address] [place] [address] [address] [place] [address] Care Team Providers Care Spectrographic Analyst Name Role Phone Ana Maria Mcclellan DO Primary Care Provider [phone]- [phone] Encounter Details Date Type Department Care Team (Latest Contact Info) Description 11/07/2021 Abstract [facility] CONVERSIONS Dental, Provider, DDS Social History Tobacco [...] Description 04/17/2025 10:00 AM EST Office Visit [facility] [address] [place] [address] Ana Maria Mcclellan DO [address] [place] [address] documented as of this encounter Visit Diagnoses Not on filedocumented in this encounter Care Teams Spectrographic Analyst Relationship Specialty Start Date End Date Ana Maria Mcclellan DO [address] [place] [address] PCP - General Family Medicine 11/29/21 documented as of this encounter
--- OUTSIDE RECORDS SUMMARY | 2025-03-26 19:46 | XMS_ITS | Encounter Summary ---
Author Organization [employer] [facility] Address [address] [place] [address] [address] [place] [address] Care Team Providers Care Advance Agent Name Role Phone Ana Maria Mcclellan DO Primary Care Provider [phone] Encounter Details Date Type Department Care Team (Latest Contact Info) Description 10/01/2020 Abstract [facility] CONVERSIONS Dental, Provider, DDS Social History Tobacco [...] Description 04/17/2025 10:00 AM EST Office Visit [facility] MEDICINE [address] [place] [address] Aan Maria Mcclellan DO [address] [place] [address] documented as of this encounter Visit Diagnoses Not on filedocumented in this encounter Care Teams Advance Agent Relationship Specialty Start Date End Date Ana Maria Mcclellan DO [address] [place] [address] PCP - General Family Medicine 11/29/21 documented as of this encounter
--- OUTSIDE RECORDS SUMMARY | 2025-03-26 19:46 | XMS_ITS | Encounter Summary ---
Author Organization [employer] Address [address] [facility] [address] [address] Care Team Providers Care Mold Filler Name Role Phone Ana Maria Mcclellan DO Primary Care Provider + [phone] Encounter Details Date Type Department Care Team ([facility] st Contact Info) Description 03/13/2025 Telephone [facility] MEDICINE [address] [place], [place] [phone] Sunday, Supriya [address] [place], [place] [phone] Social History Tobacco Use Types Packs/Day Years [...] with others, in a hotel, in a penitentiary, living outside on the street, on a [...] t he electric, gas, oil or water [employer] threatened to shut off services in your [...] supply (about 1 month without medication). Per [facility] Endocrinology, blood pressure ws 182/82 mmHg at the visit yesterday. [facility] reached out to the nephrology office, who [...] documented in this encounter Plan of Treatment Upcoming Encounters Date Type Department Care Team (Late st Contact Info) Description 04/17/2025 10:00 AM EST Office Visit [facility] MEDICINE [address] [place] [address] Ana Maria Mcclellan DO [address] [place] [address] documented as of this encounter Goals Goal [...] documented as of this encounter Care Teams Mold Filler Relationship Specialty Start Date End Date Ana Maria Mcclellan DO [address] [place] [address] PCP - General Family Medicine 11/29/21 documented as of this encounter
--- OUTSIDE RECORDS SUMMARY | 2025-03-26 19:46 | XMS_ITS | Encounter Summary ---
Author Organization [facility] Address [address] [place] [address] [place] [address] Phone Care Team Providers Care Biodiesel Process Control Technician Name Role Phone Unknown, Unknown Primary Care Provider Amalia Marques, Jen Griffith MD Primary Care Provider + Reason for Referral * - Closed Specialty Diagnoses / Procedures Referred By Contac t Referred To Contact Procedures NM Other Outside (No Interpretation) System, Provider Not In, PhD [place] [address] Referral ID Status Reason Start Date Expiration Date Visits Re quested Visits Authorized [id number] Closed 04/08/2018 04/08/2019 1 1 Encounter Details Date Type Department Care Team (Late st Contact Info) Description 04/08/2018 Ancillary Orders [facility],Outside Imaging [address] [place] [address] System, Provider Not In, PhD [employer] [address] Social History Tobacco Use Types Packs/Day Years [...] on filedocumented in this encounter Care Teams Biodiesel Process Control Technician Relationship Specialty Start Date End Date Unknown, Unknown, MD PCP - General 04/18/18 04/22/18 Jen Marques MD PCP - General Internal Medicine 04/23/18 documented as of this encounter Additional Source Comments The information contained in this document represents components of the legal health record. It is not the complete legal health record.[facility]
--- OUTSIDE RECORDS SUMMARY | 2025-03-26 19:47 | XMS_ITS | Clinical Summary ---
Author Organization [facility] Address [address] [facility] [address] [place] [address] Phone Care Team Providers Care Mechanic Assistant Name Role Phone Jen Marques MD Primary [...] topic Medical Devices Not on file Insurance [facility] MEDIC[facility] PART A & B [facility] MEDIC[facility] PART A & B [place]IC[place] PART A & [place] & [place] PART [place] & [place] PART [place] MED[place] PART A & B [facility] MEDICARE PART A & B Care Teams Mechanic Assistant Relationship Specialty Start Date End Date Jen Marques MD PCP - General Internal Medicine 04/23/18 Additional Source Comments The information contained in this document represents components of the legal health record. It is not the complete legal health record.[facility]
--- OUTSIDE RECORDS SUMMARY | 2025-03-26 19:47 | XMS_ITS | Encounter Summary ---
Author Organization [employer] Address [address] [facility] [address] [place] [address] Care Team Providers Care Risk Control Director Name Role Phone Leah Mcclellanfer Primary Care Provider + [phone] Reason for Referral * Consultation (Routine) - Canceled Specialty Diagnoses / Procedures Referred By Contac t Referred To Contact Pharmacy Diagnoses Essential hypertension Fariba Dominguez MD [address] [place] [address] Phone: tel: fax: Referral ID Status Reason Start Date Expiration Date V isits Requested Visits Authorized [id number] Canceled Continuity of Care 08/12/2024 08/12/2025 6 6 Encounter Details Date Type Department Care Team (Late st Contact Info) Description 08/12/2024 Orders Only [facility] MEDICINE [address] [place], [place] [phone] Fariba Dominguez MD [address] [place] [address] Essential hypertension (Primary Dx) Social History Tobacco [...] 10:00 AM EST Office Visit [facility] MEDICINE [address] [place] [address] Ana Maria Mcclellan DO [address] [place] [address] Scheduled Referrals Name Type Priority Associated Diagnoses [...] EDT) Sodium 143 135 - 145 mmol/L [facility] Potassium 4.0 3.3 - 5.1 mmol/L [facility] Chloride 107 96 - 108 mmol/L [facility] Carbon Dioxide 27 22 - 29 mmol/L [facility] Anion Gap 13 12 - 20 [facility] Urea Nitrogen (BUN) 15 9 - 16 mg/dL [facility] Creatinine, Serum 0.85 0.5 - 1.4 mg/dL [facility] Estimated Glomerular Filt Rate >60 [facility] Comment:Chronic Kidney Disea se: Estimated GFR < 60 mL/min/1.43p1Hukcpp Kidney Disease: Estimated GFR < 15 mL/min/1.73m2 Glucose 117(H) 60 - 115 mg/dL [facility] Calcium 9.8 8.4 - 10.2 mg/dL [facility] Bilirubin, Total 0.5 0.0 - 1.0 mg/dL [facility] Aspartate Amino Transferase 26 5 - 31 U/L [facility] Alanine Aminotransferase 20 0 - 31 U/L [facility] Total Protein 8.0 6.5 - 8.0 g/dL [facility] Albumin Level 4.5 3.5 - 5.0 g/dL [facility] Alkaline Phosphatase 120(H) 39 - 117 U/L [facility] 12/16/2024 10:1 2 AM EDT 12/16/2024 11:23 AM EDT us Generic External Data Provider LAB BLOOD ORDERAB LES Final Result [facility] [address] [place] [address] [phone] * (ABNORMAL) CBC auto differential (12/16/2024 10:12 AM EDT) White Blood Count 7.5 4.8 - 10.8 X10*3/uL [facility] Red Blood Count 5.67(H) 4.20 - 5.50 X10*6/uL [facility] Hemoglobin 13.1 12.0 - 16.0 g/dl [facility] Hematocrit 40.6 37.0 - 47.0 % [facility] Mean Corpuscular Volume 71.6(L) 80.0 - 98.0 fL [facility] Mean Corpuscular Hemoglobin 23.1(L) 27.0 - 33.0 pg [facility] Mean Corpuscular HGB Conc 32.3 31.0 - 35.0 g/dl [facility] Red Cell Distribution Width 15.8 11.0 - 16.0 % [facility] Platelet Count 335 160 - 400 X10*3/uL [facility] Mean Platelet Volume 11.1 9.4 - 12.3 fL [facility] Neutrophils Percent Auto 56.1 45 - 73 % [facility] Imm Gran Pct Auto 0.3 0.0 - 0.4 % [facility] Lymphocytes Percent Auto 36.2 20 - 40 % [facility] Monocytes Percent Auto 6.7 2 - 11 % [facility] Eosinophils Percent Auto 0.3 0 - 4 % [facility] Basophils Percent Auto 0.4 0 - 2 % [facility] NRBC Pct Auto 0.0 0.0 - 0.2 /100WBC [facility] Neutrophils Absolute Auto 4.2 2.0 - 8.3 x10*3/uL [facility] Imm Gran Abs Auto 0.02 0.00 - 0.03 X10*3/uL [facility] Lymphocytes Absolute Auto 2.7 1.2 - 4.9 X10*3/uL [facility] Monocytes Absolute Auto 0.5 0.1 - 1.2 X10*3/uL [facility] Eosinophils Absolute Auto 0.0 0.0 - 0.4 X10*3/uL [facility] Basophils Absolute Auto 0.0 0.0 - 0.2 X10*3/uL [facility] NRBC Abs Auto 0.000 0.0 - 0.012 X10*3/uL [facility] 12/16/2024 10:1 2 AM EDT 12/16/2024 11:20 AM EDT us Generic External Data Provider LAB BLOOD ORDERAB LES Final Result [facility] [address] [place] [address] [phone] documented in this encounter Visit Diagnoses Diagnosis Essential hypertension- Primary Unspecified essential hypertension documented in this encounter Additional Health Concerns Assessment Noted Time PHQ-9 Depression Total Score: 5 03/22/20 23 11:13 AM EST documented as of this encounter Care Teams Risk Control Director Relationship Specialty Start Date End Date Ana Maria Mcclellan DO [address] [place] [phone] PCP - General Family Medicine 11/29/21 documented as of this encounter
--- OUTSIDE RECORDS SUMMARY | 2025-03-26 19:47 | XMS_ITS | Clinical Summary ---
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, s/p [...] chart -s/p optho eval JAN 2023 at [facility] for annual f/u -f/u with renal [...] Encounters Date Type Department Care Team Description 03/24/2025 Telephone [facility] MEDICINE [address] [place] [address] Ana Maria Mcclellan, April03/19/2025 Telephone [facility] MEDICINE [address] [place] [address] Ana Maria Mcclellan, Results 03/16/2025 Orders Only GENERIC EXTERNAL DATA DEPARTMENT Provider, Generic External Data 03/13/2025 Telephone [facility] MEDICINE [address] [place] [address] 02/15/2025 Telephone [facility] MEDICINE [address] [place] [address] Ana Maria Mcclellan, Results 02/13/2025 Telephone [facility] [address] [place] [address] Ana Maria Mcclellan DO 02/03/2025 Orders Only [facility] MEDICINE [address] [place] [address] Ana Maria Mcclellan, Low TSH level (Primary Dx) 01/20/2025 Travel from Last 3 Months Immunizations Immunization [...] with others, in a hotel, in a snf, living outside on the street, on a [...] 12/16/2024 9:06 AM EDT Plan of Treatment Upcoming Encounters Date Type Department Care Team (Late st Contact Info) Description 04/17/2025 10:00 AM EST Office Visit [facility] MEDICINE [address] [place] [phone] Ana Maria Mcclellan DO [address] [place] [address] Health Maintenance Due Date Last Done Comments Dental X-Ray: Bitewings 1945 Dental X-Ray: Full Mouth 1945 Zoster Vaccines (2 of 3) 04/10/2017 02/13/2017 RSV Patients and Patients Aged 60 years or older (1 - 1-dose 75+ series) 2020 Dental Oral Exam 05/11/2022 11/07/2021, , 01/31/2019 Dental Prophylaxis 05/11/2022 11/07/2021, 1 05/26/2020, 10/01/2020, Additional history exists COVID-19 Vaccine ( season) 2024 07/06/2020, 06/08/2020 Influenza Vaccine (#1) 2024 , 02/06/2022, 02/06/2022, Additional history exists Alcohol/Substance Use Screening 12/16/2025 12/16/2024 Depression Screening 12/16/2025 12/16/2024, 12/17/19 Diabetes: Hemoglobin A1C 12/16/2025 025, 12/03/2023, 09/21/2022 [...] Pressure 162/62( 025 2:50 PM EDT) Caesar Shelley PharmD Procedures Procedure Name Priority Date/Time Associated Diagnosis Comments TRAB (TSH RECEPTOR BINDING ANTIBODY) Routine 03/16/2025 2:03 PM EST TSI (THYROID STIMULATING IMMUNOGLOBULIN) Routine 03/16/2025 2:03 PM EST T3, TOTAL Routine 03/16/2025 2:03 PM EST T4, FREE Routine 03/16/2025 2:03 [...] bilateral low back pain with left-sided sciatica HEPATITIS C AB W/REFL TO HCV RNA, [...] Free T4 <0.01(L) 0.32 - 4.0 uIU/mL [facility] 03/16/2025 2:03 PM EST 03/16/2025 4:07 PM EST us Generic External Data Provider LAB BLOOD ORDERAB LES Final Result Performing Organization Address City/State/[facility] Co de Phone Number [facility] [address] [place] [phone] * (ABNORMAL) Albumin, Random Urine W/Creatinine (03/16/2025 2:03 PM EST) Creatinine, Urine 82.87 mg/dL [facility] Microalbumin Urine 137.0 mg/L [facility] Microalbum Creatinine Ratio Ur 165.3(H) <30 ug/mg cr [facility] Comment:Albumin/Creatinine R atio Reference Ranges: Normal: < 30 ug/mg creatinine Microalbuminuria: 30 - 300 ug/mg creatinineClinical Albuminuria: > 300 ug/mg creatinine Urine (Urine, Random) 03/16/2025 2:03 PM EST 03/16/2025 4:07 PM EST us Ana Maria Jurcsak DO LAB URINE ORDERABLES Final R esult Performing Organization Address [facility] Co de Phone Number [facility] [address] [place] [address] [phone] * TSI (Thyroid Stimulating Immunoglobulin) (03/16/2025 2:03 PM EST) Thyroid Stimulating Immunoglobulin <89 <140 % baseline [facility] Comment: Thyroid stimulating immunoglobulins (TSI) can engagethe TSH receptors resulting in hyperthyroidism inGraves' disease patients. TSI levels can be useful inmonitoring the clinical outcome of Graves' disease aswell as assessing the potential for hyperthyroidismfrom maternal- transfer. TSI results greater thanor equal to (>=) 140% of the Reference Control areconsidered positive.NOTE:A serum TSH level greater than 350 micro-InternationalUnits/mL can interfere with the TSI bioassay andpotentially give false positive results.Patients who are and are suspected of havinghyperthyroidism should have both TSI and humanChorionic Gonadotropin(hCG) tests measured. A serumhCG level greater than 40,625 mIU/mL can interferewith the TSI bioassay and may give false negativeresults. In these patients it is recommended thata second TSI be obtained when the hCG concentrationfalls below 40,625 mIU/mL (usually after [id number] gestation).The analytical performance characteristics of thisassay have been determined by [place]. The modificationshave not been cleared or approved by the FDA. Thisassay has been validated pursuant to the CLIAregulations and is used for clinical purposes.THIS TEST WAS PERFORMED AT:[facility] [place] [id number] GUZMÁN MD,PHD 03/16/2025 2:03 PM EST 03/16/2025 4:07 PM EST us Generic External Data Provider LAB BLOOD ORDERAB LES Final Result Performing Organization Address [facility] Co de Phone Number [facility] [address] [place] [address] [phone] * TRAb (TSH Receptor Binding Antibody) (03/16/2025 2:03 PM EST) TRAb (TSH Receptor Binding Antibody) <1.00 <=2.00 IU/L [facility] Comment:This test was perfor med using the TRAb Antibody ELISAmethod which is standardized against the [facility] hospitalInternational Standard 90/672 and is reported inInternational Units (IU/L). The reference rangereported was established specifically for this testmethod.THIS TEST WAS PERFORMED AT:[employer]/[place] [id number] [place] [id number] GUZMÁN MD,PHD 03/16/2025 2:03 PM EST 03/16/2025 4:07 PM EST us Generic External Data Provider LAB BLOOD ORDERAB LES Final Result [facility] [address] [place] [phone] * (ABNORMAL) Urinalysis Complete (03/16/2025 2:03 PM EST) Color Urine Yellow [facility] Appearance Urine Clear [facility] PH 5.5 5.0 - 9.0 [facility] Glucose Urine UA Negative Negative mg/dL [facility] Urine Blood Negative Negative [facility] Specific [place] - Urine 1.010 1.005 - 1.025 [facility] Urine Protein 30 (1+)(A) Neg-Trace mg/dL [facility] Urine Ketones Negative Negative mg/dL [facility] Nitrite Urine Negative Negative [facility] Leukocyte Esterase Urine Moderate (2+)(A) Negative [facility] RBC Urine 0-2 0 - 2 /HPF [facility] Urine WBC 11-20(A) 0 - 5 /HPF [facility] Urine Squamous Epithelial Cell 3-5 0 - 2 /HPF [facility] Urine Bacteria Trace None Seen [facility] Hyaline Casts, Urine 0-2 0 - 2 /LPF [facility] Urine (Urine, Random) 03/16/2025 2:03 PM EST 03/16/2025 4:07 PM EST us Ana Maria Mcclellan DO LAB URINE ORDERABLES Final R esult Performing Organization Address City/[facility]/ZIP Co de Phone Number [facility] [address] [place] [phone] * (ABNORMAL) T3, Total (03/16/2025 2:03 PM EST) T3, Total 281(A) 76 - 181 ng/dL [facility] Comment:THIS TEST WAS PERFOR MED AT:[facility] [place] [id number] MOORE MD 03/16/2025 2:03 PM EST 03/16/2025 4:07 PM EST us Generic External Data Provider LAB BLOOD ORDERAB LES Final Result Performing Organization Address [facility]/ZIP Co de Phone Number [facility] [address] [place] [phone] * T4, Free (03/16/2025 2:03 PM EST) Pathologist [facility] Free T4 (Free Thyroxine) 1.41 0.71 - 1.85 ng/dL [facility] 03/16/2025 2:03 PM EST 03/16/2025 4:07 PM EST us Generic External Data Provider LAB BLOOD ORDERAB LES Final Result Performing Organization Address City/[facility] Co de Phone Number [facility] [address] [place] [phone] * (ABNORMAL) Basic Metabolic Panel (03/16/2025 2:03 PM EST) [facility] Sodium 142 135 - 145 mmol/L [facility] Potassium 3.8 3.3 - 5.1 mmol/L [facility] Chloride 111(H) 96 - 108 mmol/L [facility] Carbon Dioxide 24 22 - 29 mmol/L [facility] Anion Gap 11(L) 12 - 20 [facility] Urea Nitrogen (BUN) 15 9 - 16 mg/dL [facility] Creatinine, Serum 0.81 0.5 - 1.4 mg/dL [facility] Estimated Glomerular Filt Rate >60 [facility] Comment:Chronic Kidney Disea se: Estimated GFR < 60 mL/min/1.74v9Yvpdhg Kidney Disease: Estimated GFR < 15 mL/min/1.73m2 Glucose 110 60 - 115 mg/dL [facility] Calcium 9.7 8.4 - 10.2 mg/dL [facility] Blood Venous blood specimen / Unknown 03/16/2025 2:03 PM EST 03/16/2025 4:07 PM EST Ana Maria Mcclellan DO LAB BLOOD ORDERABLES Final R esult Performing Organization Address City/[facility]/ZIP Co de Phone Number [facility] [address] [place] [phone] * Nerve conduction test (01/12/2025) Ana Maria Mcclellan DO NEUROLOGY ORDERABLES Final R esult * Hepatitis C Antibody with Reflex to HCV, RNA, Quantitative, Real-Time PCR (12/16/2024 10:12 AM EDT) Hepatitis C Antibody Nonreactive Nonreactive [facility] Comment:Antibodies to HCV no t detected; does not exclude early acuteHCV infection. Blood Venous blood specimen / Unknown 12/16/2024 10:12 AM EDT 12/16/2024 11:23 AM EDT Ana Maria Mcclellan DO LAB BLOOD ORDERABLES Final R esult [facility] [address] [place] [phone] * Hemoglobin A1c (12/16/2024 10:12 AM EDT) Hemoglobin A1c 6.0 <6.0 % [facility] Comment:Hemoglobin A1C Refer ence Range Adults: 4.8 - 6.0 % Non diabetic: < 6.0 % Goal: < 7.0 %Additional Action Suggested: > 8.0 %Note: Hemoglobin A1c results are invalid for patients with abnormal amounts of HbF. Blood transfusions may impact the HbA1c concentration in the patient sample. Estimated Average Glucose 126 mg/dL [facility] Comment:eAG = Estimated ave rage glucose which is %A1C expressed asaverage glucose, using the formula of the I4O-UxuvvszDoxrfhg Glucose study (ADAG), Diabetes Care, Vol.31,#8,Nov. 2007 Blood Venous blood specimen / Unknown 12/16/2024 10:12 AM EDT 12/16/2024 11:20 AM EDT us Ana Maria Mcclellan DO LAB BLOOD ORDERABLES Final R esult [facility] [address] [place] [phone] * (ABNORMAL) Lipid Panel, Standard (12/16/2024 10:12 AM EDT) Triglycerides 98 <150 mg/dL [facility] Comment:Desirable Triglyceri de: less than 150 mg/dLBorderline High Triglyceride 150-199 mg/dLHigh Triglyceride: 200-499 mg/dLVery High Triglyceride: greater than or equal to 5OO mg/dL Cholesterol 215(H) <200 mg/dL [facility] Comment:Desirable Cholestero l: less than 200 mg/dLBorderline High Cholesterol: 200-239 mg/dLHigh Cholesterol: greater than 239 mg/dL LDL Cholesterol Calculated 143(H) <100 mg/dL [facility] Comment:Desirable LDL: less than 100 mg/dLNear Optimal/Above Optimal LDL: 110- 129 mg/dLBorderline High LDL: 130-159 mg/dLHigh LDL: 160-189 mg/dLVery High LDL: greater than or equal to 190 mg/dL HDL Cholesterol 53 >40 mg/dL [facility] Comment:Desirable HDL: great er than 40 mg/dL Note: This HDL assay may give artificially low results in patients with liver disease. 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
--- OUTSIDE RECORDS SUMMARY | 2025-03-26 19:47 | XMS_ITS | Encounter Summary ---
Author Organization [employer] Address [address] [facility] [address] [place] [address] Care Team Providers Care Special Education Director Name Role Phone Ana Maria Mcclellan DO Primary Care Provider + [phone] Reason for Visit * Reason Onset Date Comments April recall 03/24/2025 Encounter Details Date Type Department Care Team ([facility] st Contact Info) Description 03/24/2025 Telephone [facility] MEDICINE [address] [place], [place] [phone] Ana Maria Mcclellan DO [address] [place], [place] [phone] April recall Social History Tobacco Use Types Packs/Day Years [...] with others, in a hotel, in a group home, living outside on the street, on a [...] the past 12 months, has t he [employer], gas, oil or water company threatened to [...] encounter Miscellaneous Notes * Telephone Encounter - Stuart Marie MA - 03/24/2025 3:33 PM EST Telephone call to patient to schedule the following recall: Visit type: Office visit Appointment notes: HTN/Weight Check Patient agree to appointment on 04/17/25 at 10:00 AM with Zeeshan. documented in this encounter Plan of Treatment Upcoming Encounters Date Type Department Care Team (Late st Contact Info) Description 04/17/2025 10:00 AM EST Office Visit [facility] MED[facility] [address] [place] [address] Ana Maria Mcclellan DO [address] [place] [address] documented as of this encounter Goals Goal Patient Goal Type Associated Problems Recent Progress Patient-Stated? Author Blood Pressure < 140/90 Blood Pressure 162/62( 025 2:50 PM EDT) Caesar Shelley, LuisD documented as of this encounter Visit Diagnoses Not on filedocumented in this encounter Additional Health Concerns Assessment Noted Time PHQ-9 Depression Total Score: 7 12/17/19 25 10:12 AM EDT documented as of this encounter Care Teams Special Education Director Relationship Specialty Start Date End Date Ana Maria Mcclellan DO [address] [place] [address] PCP - General Family Medicine 11/29/21 documented as of this encounter
== END 2025-03-26 17:19 | disposition home or self-care (01) ==
LOC: HO.ENCR 16:38
PROVIDERS: PCP Family Medicine; Visit Provider Student in an Organized Health Care Education/Training Program
DX: R94.6 Abnormal results of thyroid function studies (principal)
CPT/HCPCS: 99214; G2211

== ENCOUNTER → 2025-03-26 16:37 | Outpatient (BNVA) | payer OTHER, SELFPAY | PROVIDERS: PCP Family Medicine; Visit Provider Student in an Organized Health Care Education/Training Program | DX: R94.6 Abnormal results of thyroid function studies (principal) | CPT/HCPCS: 99212 ==